=== PATIENT | male | born 1935 | race Caucasian/White ===

== ENCOUNTER 2020-03-12 09:08 | Outpatient (REF) | payer MEDICARE, SELFPAY ==
[2020-03-12 09:29] LABS: COVID-19 Test Negative (Negative)
== END 2020-03-12 09:09 | disposition home or self-care (01) ==
LOC: HO.LAB 09:08
PROVIDERS: PCP Physician Assistant; Visit Provider Internal Medicine
DX: Z20.828 Contact with and (suspected) exposure to other viral communicable diseases (principal)
CPT/HCPCS: 87635

== ENCOUNTER 2020-04-09 08:22 | Outpatient (REF) | payer MEDICARE, SELFPAY ==
[2020-04-09 08:55] LABS: MANUAL DIFF FLAG NO
[2020-04-09 08:59] LABS: Basophils Percent Auto 0.6 % (0-2); Eosinophils Percent Auto 1.2 % (0-4); Hematocrit 35.2 % (42-52); Hemoglobin 12.1 g/dl (14.0-18.0); Imm Gran Abs Auto 0.01 X10*3/uL (0.00-0.03); Imm Gran Pct Auto 0.3 % (0.0-0.4); Lymphocytes Absolute Auto 0.7 X10*3/uL (1.2-4.9); Lymphocytes Percent Auto 21.1 % (20-40); Mean Corpuscular HGB Conc 34.4 g/dl (31.0-36.0); Mean Corpuscular Hemoglobin 33.4 pg (27.0-33.0); Mean Corpuscular Volume 97.2 fL (80-98); Mean Platelet Volume 9.2 fL (9.4-12.4); Monocytes Absolute Auto 0.4 X10*3/uL (0.1-1.2); Monocytes Percent Auto 12.2 % (2-11); Neutrophils Absolute Auto 2.2 X10*3/uL (2.0-8.3); Neutrophils Percent Auto 64.6 % (45-73); Platelet Count 185 X10*3/uL (160-400); Red Blood Count 3.62 X10*6/uL (4.60-5.80); Red Cell Distribution Width 11.9 % (11.0-16.0); White Blood Count 3.4 X10*3/uL (4.8-10.8)
[2020-04-09 09:08] LABS: Estimated Average Glucose 126 mg/dL
[2020-04-09 09:37] LABS: Alanine Aminotransferase 17 U/L (0-40); Albumin Level 4.2 g/dL (3.5-5.0); Alkaline Phosphatase 97 U/L (39-117); Anion Gap 10 (12-20); Aspartate Amino Transferase 22 U/L (5-37); Bilirubin Total 0.8 mg/dL (0.0-1.0); Blood Urea Nitrogen 12 mg/dL (9-16); Carbon Dioxide 28 mmol/L (22-29); Chloride 97 mmol/L (96-108); Cholesterol 101 mg/dL; Estimated Glomerular Filt Rate > 60; Glucose Fasting 108 mg/dL (60-99); HDL Cholesterol 49 mg/dL; LDL Cholesterol Calculated 45 mg/dl; Potassium 4.4 mmol/l (3.3-5.1); Sodium 131 mmol/L (135-145); Total Protein 6.6 g/dL (6.5-8.0); Triglycerides 35 mg/dL
[2020-04-09 09:47] LABS: Uric Acid 2.8 mg/dL (3.4-7.0)
[2020-04-09 09:58] LABS: Thyroid Stimulating Hormone 0.44 uIU/mL (0.32-4.0)
== END 2020-04-09 08:23 | disposition home or self-care (01) ==
LOC: HO.LAB 08:22
PROVIDERS: Absent Provider Internal Medicine Cardiovascular Disease; PCP Physician Assistant; Visit Provider Physician Assistant
DX: E78.5 Hyperlipidemia, unspecified (principal); I10 Essential (primary) hypertension; I25.10 Atherosclerotic heart disease of native coronary artery without angina pectoris; M10.9 Gout, unspecified; N40.1 Benign prostatic hyperplasia with lower urinary tract symptoms; R73.09 Other abnormal glucose
CPT/HCPCS: 36415; 80053; 80061; 83036; 84443; 84550; 85025

== ENCOUNTER → 2020-04-17 10:48 | Outpatient (BNVA) | payer MEDICARE, SELFPAY | PROVIDERS: PCP Physician Assistant; Visit Provider Urology | DX: Z76.89 Persons encountering health services in other specified circumstances (principal) | CPT/HCPCS: 99212 ==

== ENCOUNTER 2020-10-21 08:21 | Outpatient (REF) | payer MEDICARE, SELFPAY ==
[2020-10-21 08:53] LABS: Hematocrit 35.5 % (42-52); Hemoglobin 12.4 g/dl (14.0-18.0); Mean Corpuscular HGB Conc 34.9 g/dl (31.0-36.0); Mean Corpuscular Volume 97.3 fL (80-98); Mean Platelet Volume 9.8 fL (9.4-12.4); Platelet Count 142 X10*3/uL (160-400); Red Blood Count 3.65 X10*6/uL (4.60-5.80); Red Cell Distribution Width 12.4 % (11.0-16.0); White Blood Count 3.2 X10*3/uL (4.8-10.8)
[2020-10-21 09:18] LABS: Alanine Aminotransferase 16 U/L (0-40); Albumin Level 4.3 g/dL (3.5-5.0); Alkaline Phosphatase 99 U/L (39-117); Anion Gap 10 (12-20); Aspartate Amino Transferase 23 U/L (5-37); Bilirubin Total 1.2 mg/dL (0.0-1.0); Blood Urea Nitrogen 12 mg/dL (9-16); Calcium 9.4 mg/dL (8.4-10.2); Carbon Dioxide 28 mmol/L (22-29); Chloride 98 mmol/L (96-108); Cholesterol 107 mg/dL; Estimated Glomerular Filt Rate > 60; Glucose Fasting 104 mg/dL (60-99); HDL Cholesterol 56 mg/dL; LDL Cholesterol Calculated 45 mg/dl; Potassium 4.4 mmol/L (3.3-5.1); Sodium 132 mmol/L (135-145); Total Protein 6.7 g/dL (6.5-8.0); Triglycerides 33 mg/dL
[2020-10-21 09:35] LABS: Prostate Specific Antigen Scr 1.12 ng/mL (<0.05-4.0); TSH reflex Free T4 0.53 uIU/mL (0.32-4.0)
== END 2020-10-21 08:22 | disposition home or self-care (01) ==
LOC: HO.LAB 08:21
PROVIDERS: Absent Provider Internal Medicine Cardiovascular Disease; PCP Physician Assistant; Visit Provider Physician Assistant
DX: Z12.5 Encounter for screening for malignant neoplasm of prostate (principal); I10 Essential (primary) hypertension
CPT/HCPCS: 36415; 80053; 80061; 84153; 84443; 85027

== ENCOUNTER → 2021-02-02 11:08 | Outpatient (BNV) | payer MEDICARE, SELFPAY | PROVIDERS: PCP Physician Assistant; Referring Provider Physician Assistant; Visit Provider Internal Medicine Medical Oncology | DX: D61.818 Other pancytopenia (principal) | CPT/HCPCS: 99203; 99213 ==

== ENCOUNTER → 2021-04-20 10:31 | Outpatient (BNVA) | payer MEDICARE, SELFPAY | PROVIDERS: PCP Physician Assistant; Visit Provider Urology | DX: R35.1 Nocturia (principal) | CPT/HCPCS: 51798; 99212 ==

== ENCOUNTER 2021-08-09 12:16 | Outpatient (REF) | payer MEDICARE, SELFPAY ==
--- NOTE | ~2021-08-09 | US_ITS ---
EXAMINATION: US ABDOMEN COMPLETE CLINICAL INFORMATION: Pancytopenia. COMPARISON: None TECHNIQUE: Real-time imaging of the abdominal viscera. FINDINGS: PANCREAS: Normal. ABDOMINAL AORTA: There is evidence of atherosclerotic disease. The proximal, mid, and distal segments are normal in caliber. INFERIOR VENA CAVA: Visualized portions are normal. LIVER: There is a 7 mm cyst in the left lobe. The liver is normal in size. The liver contour is normal. Parenchymal echogenicity is normal. There is no intrahepatic biliary duct dilatation seen. GALLBLADDER: Normal. The gallbladder is physiologically distended without evidence of stones, sludge, polyps, wall thickening or pericholecystic fluid. COMMON BILE DUCT: Normal in caliber measuring 0.3 cm in diameter. RIGHT KIDNEY: There is a 7.3 x 5.7 x 7.6 cm cyst exophytic to the lower pole. No hydronephrosis or renal calculi. The kidney measures 10.9 cm in maximum dimension. LEFT KIDNEY: Normal. No hydronephrosis. No renal calculi or focal parenchymal lesions. The kidney measures 12.2 cm in maximum dimension. SPLEEN: Normal. The spleen measures 8.4 cm in maximum dimension. FREE FLUID: None. US/US abdomen complete IMPRESSION: Normal-size spleen. Small liver cyst. Large right renal cyst.
== END 2021-08-09 12:17 | disposition home or self-care (01) ==
LOC: HO.US 12:16
PROVIDERS: PCP Physician Assistant; Visit Provider Internal Medicine Medical Oncology
DX: D61.818 Other pancytopenia (principal)
CPT/HCPCS: 76700

== ENCOUNTER 2021-09-25 20:48 | Observation (INO) | payer MEDICARE, SELFPAY ==
--- NOTE | ~2021-09-25 | CT_ITS ---
EXAMINATION: CT HEAD WITHOUT CONTRAST CLINICAL INFORMATION: Syncope. COMPARISON: None TECHNIQUE: Contiguous axial imaging was performed from the skull base to vertex without intravenous administration of contrast. This CT examination was performed using dose optimization techniques as appropriate, variously including the following: *Automated exposure control. *Adjustment of mA and/or kV according to patient size (this includes techniques or standardized protocols for targeted exams where dose is matched to indication/reason for exam; i.e. extremities or head). *Use of iterative reconstruction technique. DLP: 797 mGy-cm FINDINGS: There is no evidence of acute intracranial hemorrhage or territorial infarction. No abnormal mass effect or midline shift is seen. [id number]-[id number] matter differentiation is well preserved. No extra-axial fluid collections are identified. The ventricles and sulci are are mildly prominent, consistent with diffuse atrophy. There is no abnormal attenuation within the brain parenchyma. The osseous structures and soft tissues are normal. The mastoid air cells and visualized portions of the paranasal sinuses are well aerated. CT/CT head/brain wo con IMPRESSION: 1. No acute intracranial hemorrhage or mass effect. 2. Mild diffuse atrophy.
--- NOTE | ~2021-09-25 | XR_ITS ---
EXAMINATION: PORTABLE CHEST 1 VIEW CLINICAL INFORMATION: syncope . COMPARISON: No recent pertinent prior studies are available for comparison. TECHNIQUE: Portable frontal view of the chest was obtained. FINDINGS: The lungs are mildly hyperinflated. No focal infiltrate, effusion, edema, or pneumothorax. Cardiac and mediastinal silhouettes are within normal limits for technique. No acute bony abnormality seen. XR/XR chest 1V IMPRESSION: Mildly hyperinflated but otherwise no evidence of acute disease.
--- NOTE | ~2021-09-25 | MR_ITS ---
MRI OF THE BRAIN WITHOUT IV CONTRAST INDICATION: Syncope. COMPARISON: CT head 09/25/2021 and CTA head and neck 09/27/2021. TECHNIQUE: Multiplanar multisequence MR imaging of the brain was obtained without IV contrast. FINDINGS: There is no hydrocephalus, extra-axial surface collection, or herniation. There are T2 signal changes throughout the supratentorial white matter and central [place], likely mild to moderate chronic microangiopathy. 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 The major flow voids at the skull base are preserved. There is no acute infarct on diffusion-weighted imaging. There is no intracranial hemorrhage on the gradient recalled echo acquisition. Punctate focus of chronic hemosiderin staining within the left centrum semiovale. The midline structures are normal. The cerebellar tonsils are normally positioned. The cerebellum and brainstem are normal. The craniocervical junction is normal. Osseous marrow signal intensity is homogenous. The visualized soft tissues are unremarkable. MR/MR head/brain wo con IMPRESSION: - No acute intracranial findings. No acute infarcts. 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
--- NOTE | ~2021-09-25 | CT_ITS ---
EXAMINATION: CT angio head neck CLINICAL INFORMATION: Syncope. COMPARISON: Brain MRI 09/27/2021. TECHNIQUE: Collections Agent images were obtained. A CT angiogram of the head and neck was performed in the arterial phase after the intravenous administration of 70 mL Omnipaque 350. Pre and delayed postcontrast images of the head were also obtained. MIP reconstructions were generated in multiple orientations at the acquisition workstation. Multiple three-dimensional surface rendered images and maximum intensity projection images were generated on a dedicated 3-D lab workstation. Arterial stenoses are measured in accordance with NASCET criteria or similar method if applicable. This CT examination was performed using dose optimization techniques as appropriate, including one or more of the following: Automated exposure control, iterative reconstruction, and adjustment of technique factors (mA and/or kVp) according to patient size (this includes techniques or standardized protocols for targeted exams where dose is matched to indication/reason for exam). Total exam dose-length product 2788 mGy-cm FINDINGS: Head: There is no acute intracranial hemorrhage or abnormal extra-axial collection. Postcontrast images reveal no abnormal intracranial mass or enhancement. There is no intracranial mass effect or midline shift. Lateral and third ventricles are normal. No hydrocephalus. There are scattered nonspecific foci of hypoattenuation within the periventricular white matter that most likely represent a chronic manifestation of small vessel ischemia. [place]-white matter differentiation is otherwise preserved and there is no evidence of acute territorial infarct. CT angiogram neck: A few scattered atheromatous calcifications involve the aortic arch apex. Origins of the major aortic branches are widely patent. Common carotid arteries are patent. There is partially calcified atheromatous plaque involving both carotid bifurcations. No stenosis of the extracranial internal carotid arteries. Cervical segments of the vertebral arteries as well as their origins are patent. CT angiogram head: Intracranial internal carotid arteries are patent. The intradural vertebral artery segments and basilar artery are patent. Anterior, middle, and posterior cerebral artery complexes are normal. No intracranial large vessel occlusion. Other: Soft tissues of the neck including the thyroid gland are normal. Grossly no pathologically enlarged cervical lymph nodes. Visualized lung apices are clear. There is no acute osseous finding. Specifically no worrisome lytic or blastic osseous lesion. Grossly no evidence of canal compromise. CT/CT angio head neck IMPRESSION: Unremarkable examination in that there is no stenosis of the cervical carotid or vertebral arteries. No intracranial large vessel occlusion. Grossly no evidence of acute territorial infarct or hemorrhage. No intracranial mass or hydrocephalus.
--- NOTE | 2021-09-25 20:53 | ECG_ITS ---
Test Reason : SYNCOPE Blood Pressure : / mmHG Vent. Rate : 066 BPM Atrial Rate : 066 BPM P-R Int : 178 ms QRS Dur : 100 ms QT Int : 398 ms P-R-T Axes : 085 -08 -05 degrees QTc Int : 417 ms Normal sinus rhythm Normal ECG When compared with ECG of 29-SEP-2010 09:07, Premature ventricular complexes are no longer Present Criteria for Inferior infarct are no longer Present Referred By: Generic ED Physician Electronically Signed By:VIVIANA PARNELL
[2021-09-25 21:05] VITALS: PULSE 70; RESP 17; TEMP 36.5; O2SAT 98; BMI 25.3
[2021-09-25 21:08] LABS: MANUAL DIFF FLAG NO
[2021-09-25 21:09] LABS: Basophils Percent Auto 0.6 % (0-2); Eosinophils Absolute Auto 0.1 X10*3/uL (0.0-0.4); Eosinophils Percent Auto 1.9 % (0-4); Hematocrit 37.1 % (42.0-52.0); Hemoglobin 12.8 g/dl (14.0-18.0); Imm Gran Abs Auto 0.02 X10*3/uL (0.00-0.03); Imm Gran Pct Auto 0.3 % (0.0-0.4); Lymphocytes Absolute Auto 1.3 X10*3/uL (1.2-4.9); Lymphocytes Percent Auto 19.2 % (20-40); Mean Corpuscular HGB Conc 34.5 g/dl (31.0-36.0); Mean Corpuscular Hemoglobin 33.4 pg (27.0-33.0); Mean Corpuscular Volume 96.9 fL (80.0-98.0); Mean Platelet Volume 9.6 fL (9.4-12.4); Monocytes Absolute Auto 0.8 X10*3/uL (0.1-1.2); Monocytes Percent Auto 11.4 % (2-11); Neutrophils Absolute Auto 4.6 x10*3/uL (2.0-8.3); Neutrophils Percent Auto 66.6 % (45-73); Platelet Count 152 X10*3/uL (160-400); Red Blood Count 3.83 X10*6/uL (4.60-5.80); Red Cell Distribution Width 12.7 % (11.0-16.0); White Blood Count 6.8 X10*3/uL (4.8-10.8)
[2021-09-25 21:11] VITALS: O2SAT 98
[2021-09-25 21:22] LABS: Anion Gap 16 (12-20); Blood Urea Nitrogen 20 mg/dL (9-16); Calcium 9.8 mg/dL (8.4-10.2); Carbon Dioxide 23 mmol/L (22-29); Chloride 96 mmol/L (96-108); Creatinine Clr Calc Pharmacy 59.7; Estimated Glomerular Filt Rate > 60; Glucose Random 93 mg/dL (60-115); Potassium 4.1 mmol/L (3.3-5.1); Sodium 131 mmol/L (135-145)
[2021-09-25 21:28] LABS: Troponin-I High Sensitivity 4.2 ng/L (<3.5-35.0)
[2021-09-25 21:33] VITALS: BP 167/65; PULSE 68
[2021-09-25 21:35] VITALS: BP 170/71; PULSE 70
[2021-09-25 21:36] VITALS: BP 169/66; PULSE 80
[2021-09-25 21:42] VITALS: BP 170/71; PULSE 72; RESP 16; TEMP 36.8; O2SAT 96
[2021-09-25 21:51] LABS: Appearance Urine CLEAR; Color Urine YELLOW; Glucose Urine UA NEG (NEG); Leukocyte Esterase Urine NEG (NEG); Nitrite Urine NEG (NEG); PH 6.5 (5.0-8.0); Urine Blood NEG (NEG); Urine Ketones NEG (NEG); Urine Protein NEG (NEG-TRACE)
--- NOTE | 2021-09-25 21:54 | ED_ITS ---
HPI - Syncope General Chief Complaint: Syncope Stated Complaint: syncopal epiosode Time Seen by Provider: 09/25/21 21:13 Source: patient and family () Mode of arrival: EMS History of Present Illness HPI narrative: 86-year-old male with history of CAD, hypertension, BPH and mild anemia who is brought in by EMS after out having dinner with his family, at which time he had proximally 1 glass of wine and states ?I suddenly woke up and I was on the ground?. The provides additional information stating that he was sitting at the table and then simply slumped over to the left but was caught and lowered to the ground. There was an episode of vomiting upon awakening, the is unsure of the duration of patient being passed out, paramedics that were also at the restaurant attended to the patient and patient denies any recent changes in health and states he was restarted on a daily aspirin but otherwise denies any recent medication changes or new medications. Related Data Home Medications Medication Instructions Recorded Confirmed hydrochlorothiazide 12.5 mg tablet 12.5 mg PO DAILY 05/27/20 08/10/21 Previous Rx's Medication Instructions Recorded lisinopril 40 mg tablet 40 mg PO DAILY #90 tab 03/01/21 atorvastatin 40 mg tablet 40 mg PO DAILY #90 tab 06/28/21 tamsulosin 0.4 mg capsule 0.4 mg PO BEDTIME 90 Days #90 cap 07/12/21 allopurinol 300 mg tablet 300 mg PO DAILY #90 tab 08/17/21 metoprolol succinate 25 mg 25 mg PO DAILY #90 tab 08/17/21 tablet,extended release 24 hr Allergies Allergy/AdvReac Type Severity Reaction Status Date / Time hydrochlorothiazide Allergy Unknown Unknown Verified 09/25/21 21:12 [From Dyazide] triamterene [From Dyazide] Allergy Unknown Unknown Verified 09/25/21 21:12 Review of Systems Review of Systems: Pertinent positives and negatives as stated in HPI 10 point review of systems is otherwise negative. [facility] Past Medical History Source: nursing notes reviewed Medical History Polio Surgical History No pertinent past surgical history Family History Family History Father Lung cancer Mother No problems noted. Son In good health Social History Social History Housing: House Alcohol intake: current Alcohol intake frequency: a few times a week Alcohol type: wine Patient Tobacco Use Status: Former Tobacco user Smoked in Last 30 Days: No Second Hand Smoke Exposure: No Use of substances other than those prescribed or required for medical reasons: No Any prior treatment program specific to substance use: No Advance Directives: No Advance Directives Information Provided: Yes Current occupational status: retired Physical Exam Vital Signs: Vital Signs: Last Vital Signs Temp 98.2 F 09/25/21 21:42 Pulse 72 09/25/21 21:42 Resp 16 09/25/21 21:42 BP 170/71 H 09/25/21 21:42 Pulse Ox 96 09/25/21 21:42 BMI result Body Mass Index 25.3 VITAL SIGNS: Reviewed. GENERAL: Well developed, well nourished, in no acute distress. HEAD: Normocephalic/atraumatic EYES: PERRLA, EOMI intact without pain, no nystagmus EARS: Ext canals without abnormality OROPHARYNX: no oral lesions noted, posterior pharynx clear and non-erythematous LUNGS: Normal breath sounds. No adventitious sounds or accessory muscle use. SpO2<96> CARDIOVASCULAR: Regular rate and rhythm without noted murmurs, no JVD or lower extremity edema. ABDOMEN: Soft, non-tender, non-distended with bowel sounds. MUSCULOSKELETAL: No tenderness, deformities, or effusions noted on gross inspection. EXTREMITIES: No cyanosis, clubbing or edema. SKIN: Inspection of the skin reveals no rashes, NEUROLOGIC: Alert and oriented x 4. Strength and sensation to light touch were grossly intact x 4, no facial asymmetry, no pronator drift, cranial nerves 2-12 are grossly intact, cerebellar testing is without findings. Orthostatics are negative Course Course Course Narrative: 86-year-old male with history and clinical presentation consistent with syncopal episode of unclear etiology. On review of all investigations there does not appear to be evidence to suggest intracranial abnormality, infection, anemia, arrhythmia at the time of evaluation here in the emergency room. Orthostatics are negative but given the fact that patient had a witnessed syncopal episode while sitting this patient should be evaluated further and the case was discussed with the inpatient hospitalist who accepts admission. Patient was informed of all results, findings, and plans. MDM - Syncope Lab Data Result diagrams: 09/25/21 21:03 09/25/21 21:03 Labs: Lab Results 09/25/21 09/25/21 09/25/21 Range/Units 21:02 21:03 21:03 WBC 6.8 (4.8-10.8) X10*3/uL RBC 3.83 L (4.60-5.80) X10*6/uL Hgb 12.8 L (14.0-18.0) g/dl Hct 37.1 L (42.0-52.0) % MCV 96.9 (80.0-98.0) fL MCH 33.4 H (27.0-33.0) pg MCHC 34.5 (31.0-36.0) g/dl RDW 12.7 (11.0-16.0) % Plt Count 152 L (160-400) X10*3/uL MPV 9.6 (9.4-12.4) fL Immature Gran % (Auto) 0.3 (0.0-0.4) % Neut % (Auto) 66.6 (45-73) % Lymph % (Auto) 19.2 L (20-40) % [place] % (Auto) 11.4 H (2-11) % Eos % (Auto) 1.9 (0-4) % Baso % (Auto) 0.6 (0-2) % Lymph # (Auto) 1.3 (1.2-4.9) X10*3/uL [place] # (Auto) 0.8 (0.1-1.2) X10*3/uL Eos # (Auto) 0.1 (0.0-0.4) X10*3/uL Baso # (Auto) 0.0 (0.0-0.2) X10*3/uL Abs Immat Gran (auto) 0.02 (0.00-0.03) X10*3/uL Absolute Neuts (auto) 4.6 (2.0-8.3) x10*3/uL Absolute Nucleated RBC 0.000 (0.0-0.012) X10*3/uL Nucleated RBC % (auto) 0.0 (0.0-0.2) /100WBC Sodium 131 L (135-145) mmol/L Potassium 4.1 (3.3-5.1) mmol/L Chloride 96 (96-108) mmol/L Carbon Dioxide 23 (22-29) mmol/L Anion Gap 16 (12-20) BUN 20 H (9-16) mg/dL Creatinine 0.86 (0.5-1.4) mg/dL Estim Creat Clear Calc 59.7 Estimated GFR > 60 Random Glucose 93 (60-115) mg/dL Calcium 9.8 (8.4-10.2) mg/dL Troponin I High Sens 4.2 (<3.5-35.0) ng/L Urine Color Urine Appearance Urine pH (5.0-8.0) Ur Specific [place] (1.005-1.025) Urine Protein (NEG-TRACE) MG/DL Urine Glucose (UA) (NEG) MG/DL Urine Ketones (NEG) MG/DL Urine Blood (NEG) Urine Nitrite (NEG) Ur Leukocyte Esterase (NEG) COVID-19 ([facility]) (Negative) COVID-19 Clin Com 09/25/21 09/25/21 Range/Units 21:42 22:07 WBC (4.8-10.8) X10*3/uL RBC (4.60-5.80) X10*6/uL Hgb (14.0-18.0) g/dl Hct (42.0-52.0) % MCV (80.0-98.0) fL MCH (27.0-33.0) pg MCHC (31.0-36.0) g/dl RDW (11.0-16.0) % Plt Count (160-400) X10*3/uL MPV (9.4-12.4) fL Immature Gran % (Auto) (0.0-0.4) % Neut % (Auto) (45-73) % Lymph % (Auto) (20-40) % [place] % (Auto) (2-11) % Eos % (Auto) (0-4) % Baso % (Auto) (0-2) % Lymph # (Auto) (1.2-4.9) X10*3/uL [place] # (Auto) (0.1-1.2) X10*3/uL Eos # (Auto) (0.0-0.4) X10*3/uL Baso # (Auto) (0.0-0.2) X10*3/uL Abs Immat Gran (auto) (0.00-0.03) X10*3/uL Absolute Neuts (auto) (2.0-8.3) x10*3/uL Absolute Nucleated RBC (0.0-0.012) X10*3/uL Nucleated RBC % (auto) (0.0-0.2) /100WBC Sodium (135-145) mmol/L Potassium (3.3-5.1) mmol/L Chloride (96-108) mmol/L Carbon Dioxide (22-29) mmol/L Anion Gap (12-20) BUN (9-16) mg/dL Creatinine (0.5-1.4) mg/dL Estim Creat Clear Calc Estimated GFR Random Glucose (60-115) mg/dL Calcium (8.4-10.2) mg/dL Troponin I High Sens (<3.5-35.0) ng/L Urine Color YELLOW Urine Appearance CLEAR Urine pH 6.5 (5.0-8.0) Ur Specific [place] 1.010 (1.005-1.025) Urine Protein NEG (NEG-TRACE) MG/DL Urine Glucose (UA) NEG (NEG) MG/DL Urine Ketones NEG (NEG) MG/DL Urine Blood NEG (NEG) Urine Nitrite NEG (NEG) Ur Leukocyte Esterase NEG (NEG) COVID-19 ([facility]) Negative (Negative) COVID-19 Clin Com See Note ECG Data Attestation: I personally reviewed and interpreted this ECG as follows: Prior ECG tracings: available for review Interpretation: Sinus rhythm, HR-66, no STEMI, MO/QRS/QTC are within normal limits. Discharge Plan Discharge Clinical Impression: Syncope, HTN (hypertension), BPH w urinary obs/LUTS, Anemia, CAD (coronary artery disease) Patient Disposition: Admitted As Inpatient Prescriptions: No Action lisinopril 40 mg tablet 40 mg PO DAILY Qty: 90 2RF atorvastatin 40 mg tablet 40 mg PO DAILY Qty: 90 2RF tamsulosin 0.4 mg capsule 0.4 mg PO BEDTIME 90 Days Qty: 90 2RF metoprolol succinate 25 mg tablet extended release 24 hr 25 mg PO DAILY Qty: 90 0RF allopurinol 300 mg tablet 300 mg PO DAILY Qty: 90 0RF hydrochlorothiazide 12.5 mg tablet 12.5 mg PO DAILY 0RF
[2021-09-25 22:37] LABS: COVID-19 Test Negative (Negative); IDNOW Serial# 16C4AD1C
--- NOTE | 2021-09-25 23:02 | P.HPHOSP_ITS ---
History of Present Illness Date of Service: 09/25/21 Chief Complaint: syncope 86-year-old male with a past medical history of hypertension, hyperlipidemia, BPH, gout presented to the hospital with a chief complaint of syncope. Patient reported that he was having dinner; suddenly he felt lightheaded followed by fainted; he was slowly landed onto the ground with the help of the Members next to him in the rested. Mentioned that he briefly lost consciousness; denied any seizure-like activity. Denied any postictal confusion. Patient reported that after he wake up he had an episode of vomiting. Subsequently EMS was called in and sent him to the hospital for further evaluation. At the time of atrial patient denies any chest pain palpitations lightheadedness or dizziness. Denies any numbness tingling or focal weakness. Denies any GI symptoms. Mentions that he had like lightheadedness dizziness in the past but never had syncope. Reports he has been keeping up with fluids. Also mentions that he has been complaint with his home medications. Review of all other systems is negative except mentioned above ER course: Per ER team patient's exam was nonfocal; EKG showed no evidence of ischemia; admitted to the hospital for further management PMFSH Medical History Polio Family History Father Lung cancer Mother No problems noted. Son In good health Surgical History No pertinent past surgical history Social History Housing: House Alcohol intake: current Alcohol intake frequency: a few times a week Alcohol type: wine Patient Tobacco Use Status: Former Tobacco user Smoked in Last 30 Days: No Second Hand Smoke Exposure: No Use of substances other than those prescribed or required for medical reasons: No Any prior treatment program specific to substance use: No Advance Directives: No Advance Directives Information Provided: Yes Current occupational status: retired Meds Allergies Allergy/AdvReac Type Severity Reaction Status Date / Time hydrochlorothiazide Allergy Unknown Unknown Verified 09/25/21 21:12 [From Dyazide] triamterene [From Dyazide] Allergy Unknown Unknown Verified 09/25/21 21:12 Home Medications Medication Instructions Recorded Confirmed Last Taken Type hydrochlorothiazide 12.5 mg tablet 12.5 mg PO DAILY 05/27/20 08/10/21 Unknown History Physical Exam Vital Signs and Narrative: Vital Signs: Last Vital Signs Temp 98.2 F 09/25/21 21:42 Pulse 72 09/25/21 21:42 Resp 16 09/25/21 21:42 BP 170/71 H 09/25/21 21:42 Pulse Ox 96 09/25/21 21:42 BMI result Body Mass Index 25.3 Gen: Appears be in no acute distress HEENT: NCAT, Moist mucosa. Pulmonary: Vesicular breath sounds, fair air entry CVS: Normal S1-S2 Abdomen: BS+, Soft, Nontender Extremities: Warm well perfused Neuro: Alert and awake. grossly nonfocal. Results Labs CBC and Chem 7: 09/25/21 21:03 09/25/21 21:03 Labs: Laboratory Results - last 24 hr 09/25/21 09/25/21 09/25/21 21:02 21:03 21:03 MCV 96.9 MCH 33.4 H MCHC 34.5 RDW 12.7 Plt Count 152 L MPV 9.6 Immature Gran % (Auto) 0.3 Neut % (Auto) 66.6 Lymph % (Auto) 19.2 L [place] % (Auto) 11.4 H Eos % (Auto) 1.9 Baso % (Auto) 0.6 Lymph # (Auto) 1.3 [place] # (Auto) 0.8 Eos # (Auto) 0.1 Baso # (Auto) 0.0 Abs Immat Gran (auto) 0.02 Absolute Neuts (auto) 4.6 Absolute Nucleated RBC 0.000 Nucleated RBC % (auto) 0.0 Anion Gap 16 Estim Creat Clear Calc 59.7 Estimated GFR > 60 Random Glucose 93 Calcium 9.8 Troponin I High Sens 4.2 Urine Color Urine Appearance Urine pH Ur Specific [place] Urine Protein Urine Glucose (UA) Urine Ketones Urine Blood Urine Nitrite Ur Leukocyte Esterase COVID-19 ([facility]) COVID-19 Clin Com 09/25/21 09/25/21 21:42 22:07 MCV MCH MCHC RDW Plt Count MPV Immature Gran % (Auto) Neut % (Auto) Lymph % (Auto) [place] % (Auto) Eos % (Auto) Baso % (Auto) Lymph # (Auto) [place] # (Auto) Eos # (Auto) Baso # (Auto) Abs Immat Gran (auto) Absolute Neuts (auto) Absolute Nucleated RBC Nucleated RBC % (auto) Anion Gap Estim Creat Clear Calc Estimated GFR Random Glucose Calcium Troponin I High Sens Urine Color YELLOW Urine Appearance CLEAR Urine pH 6.5 Ur Specific [place] 1.010 Urine Protein NEG Urine Glucose (UA) NEG Urine Ketones NEG Urine Blood NEG Urine Nitrite NEG Ur Leukocyte Esterase NEG COVID-19 ([facility]) Negative COVID-19 Clin Com See Note Imaging Radiologist's Impressions: Impressions Chest X-Ray 09/25/21 21:10 IMPRESSION: Mildly hyperinflated but otherwise no evidence of acute disease. Head CT 09/25/21 22:27 IMPRESSION: 1. No acute intracranial hemorrhage or mass effect. 2. Mild diffuse atrophy. Assessment and Plan (1) Syncope: Status: Acute Plan 86-year-old male with a past medical history of hypertension, hyperlipidemia, BPH, gout presented to the hospital with a chief complaint of syncope. Syncope: Exam nonfocal; CT head showed no acute findings; EKG nonischemic troponin 4.2-6.3 Monitor on telemetry Echocardiogram fall precautions; PT/ OT eventually orthostatic vitals history of hypertension: Hold home hydrochlorothiazide. Continue home lisinopril, metoprolol. History of hyperlipidemia: Continue home statin History of BPH: Continue home Flomax DVT prophylaxis: Subcu heparin Code status: Full code Quality Stroke Does the patient have a stroke diagnosis?: No VTE Prior VTE?: No VTE Risk Level:: Medical - moderate - high VTE Device Contraindication: Treatment Not Indicated VTE Drug Contraindication: N/A - Med Ordered
[2021-09-26] VITALS (8 sets, daily range): BP systolic 138–170; BP diastolic 53–87; PULSE 57–68; RESP 12–18; TEMP 36.7–37.3; O2SAT 96–98; BMI 24.0
[2021-09-26 00:05] LABS: Troponin-I High Sensitivity 6.3 ng/L (<3.5-35.0)
[2021-09-26] MEDS: Heparin Sodium,Porcine 5,000 UNIT/ML VIAL 5000 UNIT SUBCUT (04:33)
[2021-09-26 06:39] LABS: MANUAL DIFF FLAG NO
[2021-09-26 06:49] LABS: Basophils Percent Auto 0.3 % (0-2); Eosinophils Percent Auto 0.5 % (0-4); Hemoglobin 12.2 g/dl (14.0-18.0); Imm Gran Abs Auto 0.02 X10*3/uL (0.00-0.03); Imm Gran Pct Auto 0.3 % (0.0-0.4); Lymphocytes Absolute Auto 0.7 X10*3/uL (1.2-4.9); Lymphocytes Percent Auto 10.5 % (20-40); Mean Corpuscular HGB Conc 34.9 g/dl (31.0-36.0); Mean Corpuscular Hemoglobin 33.3 pg (27.0-33.0); Mean Corpuscular Volume 95.6 fL (80.0-98.0); Mean Platelet Volume 9.8 fL (9.4-12.4); Monocytes Absolute Auto 0.7 X10*3/uL (0.1-1.2); Monocytes Percent Auto 9.9 % (2-11); Neutrophils Absolute Auto 5.1 x10*3/uL (2.0-8.3); Neutrophils Percent Auto 78.5 % (45-73); Platelet Count 143 X10*3/uL (160-400); Red Blood Count 3.66 X10*6/uL (4.60-5.80); Red Cell Distribution Width 12.5 % (11.0-16.0); White Blood Count 6.6 X10*3/uL (4.8-10.8)
[2021-09-26 07:09] LABS: Anion Gap 14 (12-20); Blood Urea Nitrogen 16 mg/dL (9-16); Calcium 9.3 mg/dL (8.4-10.2); Carbon Dioxide 22 mmol/L (22-29); Chloride 100 mmol/L (96-108); Creatinine Clr Calc Pharmacy 69.4; Estimated Glomerular Filt Rate > 60; Glucose Random 105 mg/dL (60-115); Potassium 4.5 mmol/L (3.3-5.1); Sodium 131 mmol/L (135-145)
[2021-09-26] MEDS: lisinopriL 40 MG TABLET PO (08:28)
[2021-09-26] MEDS: Metoprolol Succinate ER 25 MG TAB.ER.24H PO (08:28)
--- NOTE | 2021-09-26 08:34 | PHA.MEDREC ---
MED REC COMPLETE, NO ISSUES Pharmacy Consult ? Medication Reconciliation Pharmacy has completed the medication reconciliation.
--- NOTE | 2021-09-26 10:41 | P.PNIM_ITS ---
Subjective Subjective Date of Service: 09/26/21 Review of Systems Follow up syncope No chest pain or sob feeling well this morning Physical Exam Vital Signs: Vital Signs: Last Vital Signs Temp 98.2 F 09/26/21 08:27 Pulse 68 09/26/21 08:27 Resp 12 09/26/21 08:27 BP 152/53 H 09/26/21 08:27 Pulse Ox 96 09/26/21 08:27 BMI result Body Mass Index 25.3 Appearing in no acute distress lung sounds are clear to auscultation heart regular rate rhythm, clear S1, S2 positive bowel sounds, abdomen is soft, nontender neuro patient is alert x3, no focal deficits Objective Data Active Medications Acetaminophen (Acetaminophen 325 Mg Tablet) 650 mg PO Q6H PRN PRN Reason: Pain, Mild (Pain Scale 1-3) Atorvastatin Calcium (Atorvastatin Calcium 40 Mg Tablet) 40 mg PO BEDTIME [facility] Heparin Sodium (Porcine) (Heparin Sodium,Porcine 5,000 Unit/Ml Vial) 5,000 unit SUBCUT Q8H [facility] Last Admin: 09/26/21 04:33 Dose: 5,000 unit Documented by: JOSIANE Hydromorphone HCl (Hydromorphone Hcl 1 Mg/Ml Syringe) 0.5 mg IVPUSH Q4H PRN; Protocol PRN Reason: Pain, Severe (Pain Scale 7-10) Lisinopril (Lisinopril 40 Mg Tablet) 40 mg PO DAILY [facility]; Protocol Last Admin: 09/26/21 08:28 Dose: 40 mg Documented by: MYRTLE Melatonin (Melatonin 3 Mg Tablet) 6 mg PO BEDTIME PRN PRN Reason: Insomnia Metoprolol Succinate (Metoprolol Succinate Er 25 Mg Tab.Er.24h) 25 mg PO DAILY [facility]; Protocol Last Admin: 09/26/21 08:28 Dose: 25 mg Documented by: MYRTLE Senna (Sennosides 8.6 Mg Tablet) 17.2 mg PO BEDTIME PRN PRN Reason: Constipation Sodium Chloride (0.9 % Sodium Chloride Flush 3 Ml Syringe) 3 ml IVFLUSH QSHIFT [facility] Last Admin: 09/26/21 08:46 Dose: Not Given Documented by: MYRTLE Non-Admin Reason: Previously Administered Tamsulosin HCl (Tamsulosin Hcl 0.4 Mg Capsule) 0.4 mg PO BEDTIME [facility] Labs CBC & Chem 7: 09/26/21 06:24 09/26/21 06:24 Labs: Laboratory Results - last 24 hr 09/25/21 09/25/21 09/25/21 21:02 21:03 21:03 MCV 96.9 MCH 33.4 H MCHC 34.5 RDW 12.7 Plt Count 152 L MPV 9.6 Immature Gran % (Auto) 0.3 Neut % (Auto) 66.6 Lymph % (Auto) 19.2 L [place] % (Auto) 11.4 H Eos % (Auto) 1.9 Baso % (Auto) 0.6 Lymph # (Auto) 1.3 [place] # (Auto) 0.8 Eos # (Auto) 0.1 Baso # (Auto) 0.0 Abs Immat Gran (auto) 0.02 Absolute Neuts (auto) 4.6 Absolute Nucleated RBC 0.000 Nucleated RBC % (auto) 0.0 Anion Gap 16 Estim Creat Clear Calc 59.7 Estimated GFR > 60 Random Glucose 93 Calcium 9.8 Troponin I High Sens 4.2 Urine Color Urine Appearance Urine pH Ur Specific [place] Urine Protein Urine Glucose (UA) Urine Ketones Urine Blood Urine Nitrite Ur Leukocyte Esterase COVID-19 ([facility]) COVID-[employer] Com 09/25/21 09/25/21 09/25/21 21:42 22:07 23:26 MCV MCH MCHC RDW Plt Count MPV Immature Gran % (Auto) Neut % (Auto) Lymph % (Auto) [place] % (Auto) Eos % (Auto) Baso % (Auto) Lymph # (Auto) [place] # (Auto) Eos # (Auto) Baso # (Auto) Abs Immat Gran (auto) Absolute Neuts (auto) Absolute Nucleated RBC Nucleated RBC % (auto) Anion Gap Estim Creat Clear Calc Estimated GFR Random Glucose Calcium Troponin I High Sens 6.3 Urine Color YELLOW Urine Appearance CLEAR Urine pH 6.5 Ur Specific [place] 1.010 Urine Protein NEG Urine Glucose (UA) NEG Urine Ketones NEG Urine Blood NEG Urine Nitrite NEG Ur Leukocyte Esterase NEG COVID-19 ([facility]) Negative COVID-[facility] Com See Note 09/26/21 09/26/21 06:24 06:24 MCV 95.6 MCH 33.3 H MCHC 34.9 RDW 12.5 Plt Count 143 L MPV 9.8 Immature Gran % (Auto) 0.3 Neut % (Auto) 78.5 H Lymph % (Auto) 10.5 L [place] % (Auto) 9.9 Eos % (Auto) 0.5 Baso % (Auto) 0.3 Lymph # (Auto) 0.7 L [place] # (Auto) 0.7 Eos # (Auto) 0.0 Baso # (Auto) 0.0 Abs Immat Gran (auto) 0.02 Absolute Neuts (auto) 5.1 Absolute Nucleated RBC 0.000 Nucleated RBC % (auto) 0.0 Anion Gap 14 Estim Creat Clear Calc 69.4 Estimated GFR > 60 Random Glucose 105 Calcium 9.3 Troponin I High Sens Urine Color Urine Appearance Urine pH Ur Specific [place] Urine Protein Urine Glucose (UA) Urine Ketones Urine Blood Urine Nitrite Ur Leukocyte Esterase COVID-19 ([facility]) COVID-19 Clin Com Assessment and Plan (1) Syncope: Status: Acute Plan 86-year-old man with history of hypertension, hyperlipidemia, BPH and gout pl aced on observation for an episode of syncope while out to dinner Syncope. No history of this in the past Head CT negative for any acute abnormality EKG nonischemic, negative troponin Continue to monitor on telemetry Echocardiogram Cardiology consultation Physical therapy evaluation Check orthostatic blood pressures Hypertension Continue home medications, stable blood pressure Hyperlipidemia Statin BPH Continue Flomax DVT prophylaxis with heparin Full code Attending Dr. Goncalves Quality Stroke Does the patient have a stroke diagnosis?: No VTE Prior VTE?: No VTE Risk Level:: Medical - moderate - high VTE Device Contraindication: Treatment Not Indicated VTE Drug Contraindication: N/A - Med Ordered
--- NOTE | 2021-09-26 11:11 | PC.NURSE ---
Addendum entered by Elizabeth Fisher 09/26/21 19:21: report given to IDANIA Molina Addendum entered by Elizabeth Fisher 09/26/21 11:34: pt is alert and oriented. resting in bed. no signs of acute distress notice. breathing equally unlabored. denies any chest pain or sob. pt is on continuos cardiac monitoring Original Note: report received from IDANIA Espinosa
[2021-09-26] MEDS: 0.9 % Sodium Chloride Flush 3 ML SYRINGE IVFLUSH (21:33)
[2021-09-26] MEDS: Tamsulosin HCL 0.4 MG CAPSULE PO (21:33)
[2021-09-26] MEDS: Atorvastatin Calcium 40 MG TABLET PO (21:33)
[2021-09-27 03:26] VITALS: BP 173/75; PULSE 56; RESP 16; TEMP 36.7; O2SAT 96
[2021-09-27] MEDS: Heparin Sodium,Porcine 5,000 UNIT/ML VIAL 5000 UNIT SUBCUT ×2 (03:30→11:32)
[2021-09-27] MEDS: lisinopriL 40 MG TABLET PO (07:30)
[2021-09-27] MEDS: Metoprolol Succinate ER 25 MG TAB.ER.24H PO (07:30)
[2021-09-27] MEDS: 0.9 % Sodium Chloride Flush 3 ML SYRINGE IVFLUSH (07:31)
[2021-09-27 08:00] VITALS: BP 143/52; PULSE 67; RESP 18; TEMP 36.3; O2SAT 97
--- NOTE | 2021-09-27 09:00 | CA_ITS ---
Transthoracic Echocardiogram Patient (Last, First, Middle): Santiago Duncan, Gender: Male Date of : 1935 Age: 86 Procedure Date: 09/27/2021 Procedure Type: Transthoracic Echocardiogram Location: S3E Height: 170.18 cm Weight: 68.04 kg BSA: 1.79 m2 Heart Rate: bpm BP: 132 / 60 mmHg [employer] Supervisor: VH/OT Referring MD: Stu Garsia MD Symptoms: syncope Study Quality: Fair ECG Rhythm: Sinus Conclusions: - Normal left ventricular cavity size. There is normal left ventricular wall thickness. The left ventricular systolic function is low normal. The visually estimated ejection fraction is between 50-55%. - The basal inferior segment is akinetic. - Mildly increased right ventricular cavity size. There is normal right ventricular systolic function. - The left atrium is severely dilated. The right atrium is moderately dilated. Findings Left Ventricle Normal left ventricular cavity size. There is normal left ventricular wall thickness. The left ventricular systolic function is low normal. The visually estimated ejection fraction is between 50-55%. Abnormal diastolic function is noted. Spectral Doppler is indicative of an impaired relaxation filling pattern. E/E prime ratio is between 8 and 15 consistent with indeterminate filling pressures. Wall Motion Rest Echo Findings The basal inferior segment is akinetic. Right Ventricle Mildly increased right ventricular cavity size. There is normal right ventricular systolic function. Atria The left atrium is severely dilated. The right atrium is moderately dilated. Aortic Valve There is a normal trileaflet aortic valve. There is no aortic valve stenosis. There is mild aortic valve regurgitation. Mitral Valve The mitral valve appears normal. There is trace mitral valve regurgitation. There is no mitral valve stenosis. Pulmonic Valve Normal pulmonic valve structure and function. There is trace pulmonic valve regurgitation. Tricuspid Valve Normal tricuspid valve structure and function. There is mild tricuspid valve regurgitation. Normal right atrial pressure. There is no evidence of pulmonary hypertension. Great Vessels All visible segments of the aorta are normal in size. The visualized portions of the pulmonary artery and branches are normal. Venous The inferior vena cava is normal in size and collapses greater than 50% with inspiration. Pericardium/Pleural There is no evidence of pericardial effusion. Measurements 2D Linear Measurements IVSd: 0.95 0.6-0.9/0.6-1.0 cm LVIDd: 5.49 3.9-5.3/4.2-5.9 cm LVIDd Index: 3.07 2.4-3.2/2.2-3.1 cm/m2 LVIDs: 4.07 2.0-3.6 cm LVPWd: 0.98 0.7-1.1 cm LA Diam: 4.30 2.7-3.8/3.0-4.0 cm LAIDs Index: 2.40 1.5-2.3 cm/m2 LV Mass: 252.26 67-162/88-224 g LV Mass Index: 140.93 43-95/49-115 g/m2 LVOT Diam: 2.20 3.0+(-)1.3 cm 2D Systolic Function EF 4C: 60.90 >55% EF 2C: 54.70 >55% EF BiP: 58.90 >55% Mitral Valve MV Pk E: 0.64 MV PK A: 0.62 MV Decel Time: 163.00 E/A: 1.00 E'Lateral: 7.40 E'Medial: 6.64 E/E' Med: 9.70 E/E' Lat: 8.70 PHT: 48.00 MVA PHT: 4.58 Decel Upson: 3.81 Aortic Valve AoV Pk Zbigniew: 1.33 AoV Mn Zbigniew: 1.01 AoV VTI: 0.33 AoV Pk Grad: 7.00 Aov Mn Grad: 4.00 LANNY Cont.VTI: 2.73 LVOT LVOT Pk Zbigniew: 1.06 LVOT Mn Zbigniew: 0.64 LVOT VTI: 0.24 LVOT Pk Grad: 4.00 LVOT Mn Grad: 2.00 LVOT Diam: 2.20 LVOT Area: 3.80 Diastolic Function MV Pk E: 0.64 MV Pk A: 0.62 E/A: 1.00 E'Medial: 6.64 E/E' Med: 9.70 E' Laterial: 7.40 E/E' Lat: 8.70 Right Ventricle TAPSE (mm): 33.00 TVS' Zbigniew: 20.00 Tricuspid Valve TR Pk Zbigniew: 2.06 TR Pk Grad: 17.00 RA Press: 3.00 RVSP: 20.00 Great Vessels Aorta Ao Asc: 3.20 2.1-3.4 cm Pulmonary Valve PV Pk Zbigniew: 0.98 Peak PV Grad: 4.00 HI Pk Zbigniew: 1.05 Updated in Other Vendor System with Status of Final Julien Dickens MD electronically signed on 09/27/2021 10:12:44 PM with status of Final
--- NOTE | 2021-09-27 09:34 | PM.CNCAR ---
History of Present Illness History of Present Illness Date of Service: 09/27/21 Chief complaint: syncope Narrative: This is a cardiology consultation regarding syncopal episode. Patient states that he was having dinner and was about to pay the bill. At that time, he apparently could not see bill and it seemed as though it was all hazy. Then he apparently leaned on one of the other people in the dinner table and then eventually on the ground. He thinks he may have lost consciousness for a 3-4 minutes or so but not clear. No speech issues. No extremity weakness or tingling or numbness or any neurological complaints. No anginal-type symptoms or shortness of breath or palpitations or any cardiac issues either. Today states he feels great. In the past, apparently had a myocardial infarction in the late s. At that time he states he got thrombolytic therapy with tPA but never had any angiogram after that. He still sees Cardiology in [place] and was told that everything was normal. Review of Systems Review of Systems: Yes all other systems are reviewed and are negative Constitutional: Constitutional: Reports as per HPI Eyes: Eyes: Reports as per HPI ENT: Reports as per HPI Cardiovascular: Cardiovascular: Reports as per HPI, Denies acrocyanosis, Denies cool extremities, Denies chest pain, Denies leg edema, Denies lightheadedness, Denies palpitations and Denies dyspnea Respiratory: Respiratory: Reports as per HPI, Reports no additional respiratory complaints and Denies dyspnea Gastrointestinal: Gastrointestinal: Reports as per HPI and Reports no additional gastrointestinal complaints Genitourinary: Genitourinary: Reports no additional male genitourinary complaints and Reports as per HPI Musculoskeletal: Musculoskeletal: Reports no additional musculoskeletal complaints and Reports as per HPI Integumentary/Breasts: Skin/Breast: Reports system reviewed and no additional complaints, except as docu Neurologic: Reports system reviewed and no additional complaints, except as documented and Reports as per HPI Psychiatric: Psychiatric: Reports no additional psychiatric complaints and Reports as per HPI Endocrine: Endocrine: Reports no additional endocrine complaints, Reports as per HPI and Denies palpitations Hematologic/Lymphatic: Hematologic/Lymphatic: Reports no additional hematologic/lymphatic complaints and Reports as per HPI Allergic/Immunologic: Allergic/Immunologic: Reports no additional allergic/immunologic complaints and Reports as per HPI [facility] Past Medical History Medical History Polio Family History Family History Father Lung cancer Mother No problems noted. Son In good health Surgical History Surgical History No pertinent past surgical history Social History Social History Household Members: Spouse Housing: House Alcohol intake: current Alcohol intake frequency: a few times a week Alcohol type: wine Patient Tobacco Use Status: Former Tobacco user Second Hand Smoke Exposure: No Current occupational status: retired Meds Allergies Allergy/AdvReac Type Severity Reaction Status Date / Time hydrochlorothiazide Allergy Unknown Unknown Verified 09/25/21 21:12 [From Dyazide] triamterene [From Dyazide] Allergy Unknown Unknown Verified 09/25/21 21:12 Active Medications: Current Medications Acetaminophen (Acetaminophen 325 Mg Tablet) 650 mg PO Q6H PRN PRN Reason: Pain, Mild (Pain Scale 1-3) Atorvastatin Calcium (Atorvastatin Calcium 40 Mg Tablet) 40 mg PO BEDTIME [facility] Last Admin: 09/26/21 21:33 Dose: 40 mg Documented by: Heparin Sodium (Porcine) (Heparin Sodium,Porcine 5,000 Unit/Ml Vial) 5,000 unit SUBCUT Q8H [facility] Last Admin: 09/27/21 03:30 Dose: 5,000 unit Documented by: Hydromorphone HCl (Hydromorphone Hcl 1 Mg/Ml Syringe) 0.5 mg IVPUSH Q4H PRN; Protocol PRN Reason: Pain, Severe (Pain Scale 7-10) Lisinopril (Lisinopril 40 Mg Tablet) 40 mg PO DAILY [facility]; Protocol Last Admin: 09/27/21 07:30 Dose: 40 mg Documented by: Melatonin (Melatonin 3 Mg Tablet) 6 mg PO BEDTIME PRN PRN Reason: Insomnia Metoprolol Succinate (Metoprolol Succinate Er 25 Mg Tab.Er.24h) 25 mg PO DAILY [facility]; Protocol Last Admin: 09/27/21 07:30 Dose: 25 mg Documented by: Senna (Sennosides 8.6 Mg Tablet) 17.2 mg PO BEDTIME PRN PRN Reason: Constipation Sodium Chloride (0.9 % Sodium Chloride Flush 3 Ml Syringe) 3 ml IVFLUSH QSHIFT [facility] Last Admin: 09/27/21 07:31 Dose: 3 ml Documented by: Tamsulosin HCl (Tamsulosin Hcl 0.4 Mg Capsule) 0.4 mg PO BEDTIME [facility] Last Admin: 09/26/21 21:33 Dose: 0.4 mg Documented by: Home Medications Medication Instructions Recorded Confirmed Last Taken Type hydrochlorothiazide 12.5 mg tablet 12.5 mg PO DAILY 05/27/20 09/26/21 09/25/21 History 12.5 aspirin 81 mg chewable tablet 81 mg PO DAILY 09/26/21 09/26/21 09/25/21 History Physical Exam Vital Signs: Vital Signs: Last Vital Signs Temp 97.4 F 09/27/21 08:00 Pulse 67 09/27/21 08:00 Resp 18 09/27/21 08:00 BP 143/52 H 09/27/21 08:00 Pulse Ox 97 09/27/21 08:00 BMI result Body Mass Index 24.0 Const: General: comfortable and no acute distress Orientation/consciousness: patient oriented x3 HEENT: Other: Unremarkable Head: Yes normal to inspection Neck: Neck: Yes normal visual inspection Chest: Chest palpation & inspection: normal inspection of the chest Resp: Auscultation: clear to auscultation bilaterally Cardio: Palpation: normal PMI Heart sounds: S1 normal heart sound present, S2 normal heart sound present, no gallops, no murmurs and no rubs GI: Palpation (GI): Soft to palpation Back/Spine/Pelvis: Other: unremarkable Skin: General skin exam: no rashes or lesions noted Neuro: General: patient oriented x3 Extrem: General: Yes normal to inspection Psych: Mental Status: mental status grossly normal Objective Labs and Meds Result diagrams: 09/26/21 06:24 09/26/21 06:24 ECG Interpretation: EKG with sinus rhythm at 66/Min; no significant ST-T changes and otherwise unremarkable. Assessment and Plan (1) Syncope: Status: Acute Plan Labs reviewed. Potassium 4.5. Creatinine 0.74. High sensitivity troponin 4.2/6.3. COVID status negative. CT had reported to have no acute hemorrhage or mass effect. Mild diffuse atrophy. Chest x-ray reported to have mildly hyperinflated lungs but otherwise no acute disease. Telemetry does not show any arrhythmias. Overall, no obvious explanation for his syncopal episode. No evidence of any arrhythmias based on telemetry and there is no evidence of acute coronary syndrome either. We will review the echocardiogram once completed. Otherwise, could be a transient ischemic attack and consider neurology workup in that regard. 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 Procedures Date of Service Date of Service: 09/27/21
--- NOTE | 2021-09-27 11:04 | HO.PM.IMPN ---
Subjective Subjective Date of Service: 09/27/21 Review of Systems Follow up syncope No chest pain, sob no further episodes of syncope Physical Exam Vital Signs: Vital Signs: Last Vital Signs Temp 97.4 F 09/27/21 08:00 Pulse 67 09/27/21 08:00 Resp 18 09/27/21 08:00 BP 143/52 H 09/27/21 08:00 Pulse Ox 97 09/27/21 08:00 BMI result Body Mass Index 24.0 Appearing in no acute distress lung sounds are clear to auscultation heart regular rate rhythm, clear S1, S2 positive bowel sounds, abdomen is soft, nontender neuro patient is alert x3, no focal deficits Objective Data Active Medications Acetaminophen (Acetaminophen 325 Mg Tablet) 650 mg PO Q6H PRN PRN Reason: Pain, Mild (Pain Scale 1-3) Atorvastatin Calcium (Atorvastatin Calcium 40 Mg Tablet) 40 mg PO BEDTIME [facility] Last Admin: 09/26/21 21:33 Dose: 40 mg Documented by: DARRYL Heparin Sodium (Porcine) (Heparin Sodium,Porcine 5,000 Unit/Ml Vial) 5,000 unit SUBCUT Q8H [facility] Last Admin: 09/27/21 03:30 Dose: 5,000 unit Documented by: DARRYL Hydromorphone HCl (Hydromorphone Hcl 1 Mg/Ml Syringe) 0.5 mg IVPUSH Q4H PRN; Protocol PRN Reason: Pain, Severe (Pain Scale 7-10) Lisinopril (Lisinopril 40 Mg Tablet) 40 mg PO DAILY [facility]; Protocol Last Admin: 09/27/21 07:30 Dose: 40 mg Documented by: RUSSELL Melatonin (Melatonin 3 Mg Tablet) 6 mg PO BEDTIME PRN PRN Reason: Insomnia Metoprolol Succinate (Metoprolol Succinate Er 25 Mg Tab.Er.24h) 25 mg PO DAILY [facility]; Protocol Last Admin: 09/27/21 07:30 Dose: 25 mg Documented by: RUSSELL Senna (Sennosides 8.6 Mg Tablet) 17.2 mg PO BEDTIME PRN PRN Reason: Constipation Sodium Chloride (0.9 % Sodium Chloride Flush 3 Ml Syringe) 3 ml IVFLUSH QSHIFT [facility] Last Admin: 09/27/21 07:31 Dose: 3 ml Documented by: HO.KODOSOB Tamsulosin HCl (Tamsulosin Hcl 0.4 Mg Capsule) 0.4 mg PO BEDTIME [facility] Last Admin: 09/26/21 21:33 Dose: 0.4 mg Documented by: DARRYL Labs CBC & Chem 7: 09/26/21 06:24 09/26/21 06:24 Assessment and Plan (1) Syncope: Status: Acute Plan 86-year-old man with history of hypertension, hyperlipidemia, BPH and gout placed on observation for an episode of syncope while out to dinner Syncope. No history of this in the past Head CT negative for any acute abnormality EKG nonischemic, negative troponin Continue to monitor on telemetry Echocardiogram pending Physical therapy evaluation Check orthostatic blood pressures seen by cardiology, rec MRI/MRA neck does not appear to be cardiac in nature Hypertension Continue home medications, stable blood pressure Hyperlipidemia Statin BPH Continue Flomax DVT prophylaxis with heparin Full code Attending Dr. Goncalves Quality Stroke Does the patient have a stroke diagnosis?: No VTE Prior VTE?: No VTE Risk Level:: Medical - moderate - high VTE Device Contraindication: Treatment Not Indicated VTE Drug Contraindication: N/A - Med Ordered
[2021-09-27 12:00] VITALS: BP 148/68; PULSE 57; RESP 14; TEMP 37.1; O2SAT 96
[2021-09-27] MEDS: iohexoL 350 MG/ML 100 ML INFUS..BTL IV (14:40)
--- NOTE | 2021-09-27 15:21 | MHC.CM.PN ---
CM MET WITH PT AND AT BEDSIDE PT LIVES AT HOME AND IS INDEPENDENT WITH CARE AND MOBILITY PT HAS NO DME AND NO HOME SERVICES PT REPORTS HE DOES NOT HAVE A HCP, HE WOULD LIKE TO TAKE A BLANK WITH HIM PT REPORTS HE IS COVID-19 VACCINATED PCP: ERIKA MORROW OBSERVATION NOTICE DELIVERED CURRENT DC PLAN IS HOME WITH NO SERVICES FAMILY WILL TRANSPORT
[2021-09-27 16:00] VITALS: BP 156/69; PULSE 60; RESP 18; TEMP 36.4; O2SAT 97
--- NOTE | 2021-09-27 16:43 | PM.DS ---
DS: Providers Provider Date of Service: 09/27/21 <Kaelyn Navarro NP - Last Filed: 09/28/21 11:32> Date of admission: 09/25/21 22:59 <Kaelyn Navarro NP - Last Filed: 09/28/21 11:32> Primary care physician: Garrison Brice PA-C <Kaelyn Navarro NP - Last Filed: 09/28/21 11:32> Consults: 09/26/21 10:40 Consult to Cardiology Routine Consulting Provider: Galdino Tijerina Reason for consultation: syncope Has provider been notified: No <Kaelyn Navarro NP - Last Filed: 09/28/21 11:32> Attending physician on discharge: Louis Goncalves <Kaelyn Navarro NP - Last Filed: 09/28/21 11:32> Discharging clinician: Kaelyn Navarro <Kaelyn Navarro NP - Last Filed: 09/28/21 11:32> DS: Diagnosis Discharge Diagnosis (1) Syncope: Status: Acute <Kaelyn Navarro NP - Last Filed: 09/28/21 11:32> DS: Summary Hospital Course Hospital Course: HP as per admitting provider 86-year-old male with a past medical history of hypertension, hyperlipidemia, BPH, gout presented to the hospital with a chief complaint of syncope.?Patient reported that? he was having dinner;? suddenly he felt lightheaded followed by fainted; he was slowly landed onto the ground with the help of the ? Members next to him in the rested.?Mentioned that he briefly lost consciousness; denied any seizure-like activity.? Denied any postictal confusion.? ? Patient reported that after he wake up he had an episode of vomiting. Subsequently EMS was called in and sent him to the hospital for further evaluation.?At the time of atrial patient denies any chest pain palpitations lightheadedness or dizziness.? Denies any numbness tingling or focal weakness.? Denies any GI symptoms.?Mentions that he had like lightheadedness dizziness in the past but never had syncope.? Reports he has been keeping up with fluids.? Also mentions that he has been complaint with his home medications.?Review of all other systems is negative except mentioned above ER course: Per ER team patient's exam was nonfocal; EKG showed no evidence of ischemia; admitted to the hospital for further management . Syncope.? No history of this in the past, no episodes of syncope while hospitalized Monitored on telemetry with no noted arrhythmia MRI showed chronic lacunar infarct, head and neck CTA was unremarkable for carotid artery stenosis or occlusion EKG nonischemic, negative troponin Continue to monitor on telemetry not orthostatic patient feeling fine and would like to go home seen by cardiology symptoms do not appear to be cardiac in nature Patient to follow up with his tour bus driver/guide for possible holter monitor placement to rule out arryhthmia causing symptoms Hypertension Continue home medications, stable blood pressure Hyperlipidemia Statin BPH Continue Flomax Hyponatremia Chronic Also could be secondary to HCTZ Follow up with PCP to further assess this <Kaelyn Navarro NP - Last Filed: 09/28/21 11:32> Time Spent with Patient Time attestation: Total time spent providing and/or coordinating discharge services: <Kaelyn Navarro NP - Last Filed: 09/28/21 11:32> Discharge coordination time: Greater than 30 minutes <Kaelyn Navarro NP - Last Filed: 09/28/21 11:32> Quality: Safe Use of Opioids Does Pt have an Active Cancer Diagnosis on the Problem List?: No <Kaelyn Navarro NP - Last Filed: 09/28/21 11:32> Quality: Stroke Does the patient have a stroke diagnosis?: No <KHANG Pritchard Last Filed: 09/28/21 11:32> Physical Exam Vital Signs: Vital Signs: Last Vital Signs Temp 97.5 F 09/27/21 16:00 Pulse 60 09/27/21 16:00 Resp 18 09/27/21 16:00 BP 156/69 H 09/27/21 16:00 Pulse Ox 97 09/27/21 16:00 BMI result Body Mass Index 24.0 <KHANG Pritchard Last Filed: 09/28/21 11:32> Appearing in no acute distress head is normocephalic atraumatic eyes pupils are PERRLA sclera is anicteric mouth throat mucous membranes are intact and moist neck is supple no lymphadenopathy, no JVD noted lung sounds are clear to auscultation heart regular rate rhythm, clear S1, S2 positive bowel sounds, abdomen is soft, nontender neuro patient is alert x3, no focal deficits <Kaelyn Navarro NP - Last Filed: 09/28/21 11:32> Discharge Plan Discharge Anticipated Discharge Date/Time: 09/27/21 16:37 <Kaelyn Navarro NP - Last Filed: 09/28/21 11:32> Patient Disposition: Home, Self-Care <Kaelyn Navarro NP - Last Filed: 09/28/21 11:32> Discharge Diagnosis: Syncope hyponatremia, chronic <Kaelyn Navarro NP - Last Filed: 09/28/21 11:32> Referrals: Garrison Brice PA-C [Primary Care Provider] - 1 Week <Kaelyn Navarro NP - Last Filed: 09/28/21 11:32> Discharge Medications: Continued lisinopril 40 mg tablet 40 mg PO DAILY Qty: 90 2RF atorvastatin 40 mg tablet 40 mg PO DAILY Qty: 90 2RF tamsulosin 0.4 mg capsule 0.4 mg PO BEDTIME 90 Days Qty: 90 2RF metoprolol succinate 25 mg tablet extended release 24 hr 25 mg PO DAILY Qty: 90 0RF allopurinol 300 mg tablet 300 mg PO DAILY Qty: 90 0RF aspirin 81 mg Tablet,Chewable 81 mg PO DAILY 0RF hydrochlorothiazide 12.5 mg tablet 12.5 mg PO DAILY 0RF <Kaelyn Navarro NP - Last Filed: 09/28/21 11:32> Discharge Orders: Discharge Order (Routine); Ordered 09/27/21 Ordered By: Kaelyn Navarro <Kaelyn Navarro NP - Last Filed: 09/28/21 11:32> Diet: advance to usual diet <Kaelyn Navarro NP - Last Filed: 09/28/21 11:32> Activity on Discharge: As tolerated <Kaelyn Navarro NP - Last Filed: 09/28/21 11:32> Stand Alone Forms: Patient Portal Discharge page <Kaelyn Navarro NP - Last Filed: 09/28/21 11:32> Other Ambulatory Orders: Basic Metabolic Panel (Routine) Timeframe: [id number] Facility: [facility] - Location: Laboratory Ordered By: Kaelyn Navarro <Kaelyn Navarro NP - Last Filed: 09/28/21 11:32> Care Plan Goals: no further episodes of syncope <Kaelyn Navarro NP - Last Filed: 09/28/21 11:32> Health Concerns: syncope <Kaelyn Navarro NP - Last Filed: 09/28/21 11:32> Plan of Treatment: Follow-up with primary care provider to assess the need to continue HCTZ as this may be causing hyponatremia Follow-up with tour bus driver/guide for a Holter monitor placement check labs in 2 days <Kaelyn Navarro NP - Last Filed: 09/28/21 11:32> Assessment: see discharge summary <Kaelyn Navarro NP - Last Filed: 09/28/21 11:32> Discharge Date/Time: 09/27/21 17:38 <Kaelyn Navarro NP - Last Filed: 09/28/21 11:32>
== END 2021-09-27 17:38 | disposition home or self-care (01) ==
LOC: HO.ED 23:06 → HO.EDOVER 23:09 → HO.S3 09-26 18:25
PROVIDERS: Admitting Provider Hospitalist; Emergency Provider Student in an Organized Health Care Education/Training Program; PCP Physician Assistant; Visit Provider Nurse Practitioner Acute Care
DX: R55 Syncope and collapse (principal); E87.1 Hypo-osmolality and hyponatremia; I10 Essential (primary) hypertension; E78.5 Hyperlipidemia, unspecified; N40.1 Benign prostatic hyperplasia with lower urinary tract symptoms; N13.8 Other obstructive and reflux uropathy; D64.9 Anemia, unspecified; I25.10 Atherosclerotic heart disease of native coronary artery without angina pectoris; I63.81 Other cerebral infarction due to occlusion or stenosis of small artery; M10.9 Gout, unspecified; A80.9 Acute poliomyelitis, unspecified; Z87.891 Personal history of nicotine dependence; Z20.822 Contact with and (suspected) exposure to COVID-19; Z88.8 Allergy status to other drugs, medicaments and biological substances; Z79.82 Long term (current) use of aspirin; Z79.899 Other long term (current) drug therapy
CPT/HCPCS: 36415; 70450; 70496; 70498; 70551; 71045; 80048; 81003; 84484; 85025; 87635; 93005; 93306; 96372; 96374; 99205; 99218; 99285; Q9967

== ENCOUNTER 2021-09-29 08:42 | Outpatient (REF) | payer MEDICARE, SELFPAY ==
[2021-09-29 09:42] LABS: Hematocrit 36.9 % (42.0-52.0); Hemoglobin 12.7 g/dl (14.0-18.0); Mean Corpuscular HGB Conc 34.4 g/dl (31.0-36.0); Mean Corpuscular Hemoglobin 33.7 pg (27.0-33.0); Mean Corpuscular Volume 97.9 fL (80.0-98.0); Mean Platelet Volume 9.8 fL (9.4-12.4); Platelet Count 163 X10*3/uL (160-400); Red Blood Count 3.77 X10*6/uL (4.60-5.80); Red Cell Distribution Width 12.5 % (11.0-16.0); White Blood Count 4.1 X10*3/uL (4.8-10.8)
[2021-09-29 10:03] LABS: Anion Gap 12 (12-20); Blood Urea Nitrogen 18 mg/dL (9-16); Calcium 9.9 mg/dL (8.4-10.2); Carbon Dioxide 26 mmol/L (22-29); Chloride 96 mmol/L (96-108); Cholesterol 118 mg/dL; Estimated Glomerular Filt Rate > 60; Glucose Random 98 mg/dL (60-115); HDL Cholesterol 58 mg/dL; Iron 119 mcg/dL (45-160); LDL Cholesterol Calculated 54 mg/dl; Percent Iron Saturation 41 % (15-50); Sodium 129 mmol/L (135-145); Total Iron Binding Capacity 288 mcg/dL (228-428); Triglycerides 33 mg/dL; Unsaturated Iron Binding 169 ug/dL
[2021-09-29 10:23] LABS: Prostate Specific Antigen Scr 1.41 ng/mL (<0.05-4.0); TSH reflex Free T4 0.82 uIU/mL (0.32-4.0)
[2021-09-29 10:23] LABS: Creatinine Urine 106.06 mg/dL; Microalbum/Creatinine Ratio Ur 8.4 ug/mg cr
== END 2021-09-29 08:43 | disposition home or self-care (01) ==
LOC: HO.LAB 08:42
PROVIDERS: PCP Physician Assistant; Visit Provider Nurse Practitioner Acute Care
DX: E87.1 Hypo-osmolality and hyponatremia (principal); I10 Essential (primary) hypertension; D61.818 Other pancytopenia; D50.9 Iron deficiency anemia, unspecified; I25.10 Atherosclerotic heart disease of native coronary artery without angina pectoris; Z12.5 Encounter for screening for malignant neoplasm of prostate
CPT/HCPCS: 36415; 80048; 80061; 82043; 83540; 84153; 84443; 85027

== ENCOUNTER 2022-02-09 09:03 | Outpatient (REF) | payer MEDICARE, SELFPAY ==
[2022-02-09 10:37] LABS: Alanine Aminotransferase 20 U/L (0-40); Albumin Level 4.3 g/dL (3.5-5.0); Alkaline Phosphatase 101 U/L (39-117); Anion Gap 13 (12-20); Aspartate Amino Transferase 23 U/L (5-37); Bilirubin Total 0.8 mg/dL (0.0-1.0); Blood Urea Nitrogen 12 mg/dL (9-16); Calcium 9.4 mg/dL (8.4-10.2); Carbon Dioxide 27 mmol/L (22-29); Chloride 98 mmol/L (96-108); Estimated Glomerular Filt Rate > 60; Glucose Fasting 108 mg/dL (60-99); Potassium 4.6 mmol/L (3.3-5.1); Sodium 133 mmol/L (135-145); Total Protein 6.8 g/dL (6.5-8.0)
== END 2022-02-09 09:04 | disposition home or self-care (01) ==
LOC: HO.LAB 09:03
PROVIDERS: PCP Physician Assistant; Visit Provider Physician Assistant
DX: I10 Essential (primary) hypertension (principal)
CPT/HCPCS: 36415; 80053

== ENCOUNTER → 2022-04-28 10:33 | Outpatient (BNVA) | payer MEDICARE, SELFPAY | PROVIDERS: PCP Physician Assistant; Visit Provider Urology | DX: R35.1 Nocturia (principal) | CPT/HCPCS: 99212 ==

== ENCOUNTER 2022-08-31 08:30 | Outpatient (REF) | payer MEDICARE, SELFPAY ==
[2022-08-31 09:37] LABS: Hemoglobin 12.7 g/dl (14.0-18.0); Mean Corpuscular HGB Conc 34.3 g/dl (31.0-36.0); Mean Corpuscular Hemoglobin 33.3 pg (27.0-33.0); Mean Corpuscular Volume 97.1 fL (80.0-98.0); Mean Platelet Volume 9.8 fL (9.4-12.4); Platelet Count 149 X10*3/uL (160-400); Red Blood Count 3.81 X10*6/uL (4.60-5.80); Red Cell Distribution Width 12.7 % (11.0-16.0); White Blood Count 3.6 X10*3/uL (4.8-10.8)
[2022-08-31 10:27] LABS: Creatinine Urine 99.01 mg/dL
[2022-08-31 10:37] LABS: Alanine Aminotransferase 18 U/L (0-40); Albumin Level 4.3 g/dL (3.5-5.0); Alkaline Phosphatase 86 U/L (39-117); Anion Gap 11 (12-20); Aspartate Amino Transferase 24 U/L (5-37); Bilirubin Total 1.5 mg/dL (0.0-1.0); Blood Urea Nitrogen 16 mg/dL (9-16); Calcium 9.5 mg/dL (8.4-10.2); Carbon Dioxide 28 mmol/L (22-29); Chloride 98 mmol/L (96-108); Cholesterol 115 mg/dL; Estimated Glomerular Filt Rate > 60; Glucose Fasting 98 mg/dL (60-99); HDL Cholesterol 56 mg/dL; Iron 111 mcg/dL (45-160); LDL Cholesterol Calculated 53 mg/dl; Percent Iron Saturation 42 % (15-50); Potassium 4.6 mmol/L (3.3-5.1); Sodium 132 mmol/L (135-145); Total Iron Binding Capacity 264 mcg/dL (228-428); Total Protein 6.7 g/dL (6.5-8.0); Triglycerides 32 mg/dL; Unsaturated Iron Binding 153 ug/dL
[2022-08-31 11:05] LABS: Folate 14.3 ng/mL (> or = 4.0); TSH reflex Free T4 0.52 uIU/mL (0.32-4.0); Vitamin B12 304 pg/mL (200-900)
== END 2022-08-31 08:31 | disposition home or self-care (01) ==
LOC: HO.LAB 08:30
PROVIDERS: PCP Physician Assistant; Visit Provider Physician Assistant
DX: D50.9 Iron deficiency anemia, unspecified (principal); D61.818 Other pancytopenia; I10 Essential (primary) hypertension; E53.8 Deficiency of other specified B group vitamins
CPT/HCPCS: 36415; 80053; 80061; 82043; 82607; 82746; 83540; 84443; 85027

== ENCOUNTER 2023-01-24 06:48 | Emergency (ER) | payer MEDICARE, SELFPAY ==
[2023-01-24] VITALS (8 sets, daily range): BP systolic 155–187; BP diastolic 43–68; PULSE 54–77; RESP 13–14; TEMP 36.5; O2SAT 96–99; BMI 23.5
--- NOTE | ~2023-01-24 | XR_ITS ---
EXAMINATION: XR SHOULDER, RIGHT CLINICAL INFORMATION: Right shoulder pain status post fall. COMPARISON: None available. TECHNIQUE: Three views of the right shoulder. FINDINGS: The bones and soft tissues are normal. No fracture. Glenohumeral and acromioclavicular alignment is anatomic with normal joint space. No abnormal soft tissue calcifications. XR/XR shoulder RT min 2V IMPRESSION: Unremarkable right shoulder.
--- NOTE | 2023-01-24 06:57 | ECG_ITS ---
Test Reason : Chest pain Blood Pressure : / mmHG Vent. Rate : 060 BPM Atrial Rate : 060 BPM P-R Int : 160 ms QRS Dur : 100 ms QT Int : 400 ms P-R-T Axes : 026 -25 -07 degrees QTc Int : 400 ms Normal sinus rhythm Minimal voltage criteria for LVH, may be normal variant ( R in aVL ) Inferior infarct , age undetermined Abnormal ECG When compared with ECG of 25-SEP-2021 21:13, Inferior infarct is now Present Referred By: Connie Mena Electronically Signed By:RENARD MCLAUGHLIN
--- NOTE | 2023-01-24 07:02 | ED.CHESTPAIN ---
HPI - Chest Pain General Chief Complaint: Dizziness Stated Complaint: cp Time Seen by Provider: 01/24/23 06:57 Source: patient Mode of arrival: EMS History of Present Illness HPI narrative: 87-year-old male is brought in by EMS from home and reports increased dizziness and weakness x1 week as per the triage note, however patient did not endorse this and states that he has otherwise been feeling well and denies any fever, chills, nausea, vomiting, abdominal discomfort or diarrhea and denies any urinary symptoms. At present patient denies any shortness of breath/chest pain/palpitations. Patient states that he has been feeling dizzy primarily in the morning when he gets out. He endorses that that is what happened this morning and he caught himself with his right upper extremity on the dresser but it twisted him around and he ended up falling on his bottom and striking his left elbow. He denies any head strike or loss of consciousness. Related Data Home Medications Medication Instructions Recorded Confirmed hydrochlorothiazide 12.5 mg tablet 12.5 mg PO DAILY 05/27/20 11/07/22 aspirin 81 mg chewable tablet 81 mg PO DAILY 09/26/21 11/07/22 Previous Rx's Medication Instructions Recorded tamsulosin 0.4 mg capsule 0.4 mg PO BEDTIME 90 days #90 caps 04/28/22 allopurinol 300 mg tablet 300 mg PO DAILY #90 tabs 05/16/22 lisinopril 40 mg tablet 40 mg PO DAILY #90 tabs 09/02/22 metoprolol succinate 25 mg 25 mg PO DAILY #90 tabs 11/14/22 tablet,extended release 24 hr atorvastatin 40 mg tablet 40 mg PO DAILY #90 tabs 01/09/23 Allergies Allergy/AdvReac Type Severity Reaction Status Date / Time hydrochlorothiazide Allergy Unknown Unknown Verified 11/07/22 09:55 [From Dyazide] triamterene [From Dyazide] Allergy Unknown Unknown Verified 11/07/22 09:55 Review of Systems Review of Systems: Rinne positives and negatives as stated in HPI PMFSH Past Medical History Source: nursing notes reviewed Medical History Anemia BPH w urinary obs/LUTS CAD (coronary artery disease) HTN (hypertension) Polio Surgical History History of biopsy Family History Family History Father Lung cancer Mother No problems noted. Son In good health Social History Social History Household Members: Spouse Housing: House Are you a primary career development associate to a significant other at home: No Do you presently have visiting nurse or other home services: No Alcohol intake: current Alcohol intake frequency: a few times a week Alcohol type: wine Patient Tobacco Use Status: Former Tobacco user Tobacco use type: Cigarette Cigarettes Per Day: 20 e-Cigarette/Vaping Use: Never Used Second Hand Smoke Exposure: No Advance Directives: No Advance Directives Information Provided: No service: Yes Current occupational status: retired Cognitive needs: Yes Hearing needs: No Vision needs: No Physical Exam Vital Signs: Vital Signs: Last Vital Signs Temp 97.7 F 01/24/23 06:56 Pulse 59 01/24/23 07:37 Resp 14 01/24/23 07:37 BP 172/61 H 01/24/23 07:37 Pulse Ox 97 01/24/23 07:37 O2 Del Method Room Air 01/24/23 07:37 BMI result Body Mass Index 23.5 VITAL SIGNS: Reviewed. GENERAL: Well developed, well nourished, in no acute distress. HEAD: Normocephalic/atraumatic EYES: PERRLA, EOMI EARS: Ext canals without abnormality NOSE: Nares patent bilateral OROPHARYNX: no oral lesions noted, posterior pharynx clear NECK: Supple, no adenopathy LUNGS: Normal breath sounds. No adventitious sounds or accessory muscle use. SpO2<96> CARDIOVASCULAR: Regular rate and rhythm without noted murmurs, no JVD or lower extremity edema. ABDOMEN: Soft, non-tender, non-distended with bowel sounds. PELVIS: Stable, nontender MUSCULOSKELETAL: No tenderness, deformities, or effusions noted on gross inspection. EXTREMITIES: No cyanosis, clubbing or edema. RIGHT SHOULDER: Full range of motion, no obvious deformity. LEFT ELBOW: Skin tear to left elbow otherwise no deformity, full range of motion. SKIN: Inspection of the skin reveals no rashes NEUROLOGIC: Alert and oriented x 4. Strength and sensation to light touch were grossly intact x 4, no facial asymmetry, no pronator drift, cranial nerves 2-12 are grossly intact.. Medications Administered Discontinued Medications Generic Name Dose Route Start Last Admin Trade Name Milagros PRN Reason Stop Dose Admin Hydrochlorothiazide 12.5 mg 01/24/23 08:14 01/24/23 09:02 Hydrochlorothiazide 12.5 Mg Tablet PO 01/24/23 08:15 12.5 mg ONCE ONE Administration Protocol Sodium Chloride 500 mls @ 999 mls/hr 01/24/23 08:15 01/24/23 09:57 Ns IV 01/24/23 08:45 Infused .Q31M BETZY Infusion Lisinopril 40 mg 01/24/23 08:14 01/24/23 09:02 Lisinopril 40 Mg Tablet PO 01/24/23 08:15 40 mg ONCE ONE Administration Protocol Procedures Laceration Laceration 1: Site: upper extremity Side (If applicable): left Size (cm): 3 Description: flap and irregular Depth: simple, single layer Pre-repair: wound explored and irrigated extensively Skin layer closed with: other (Dermabond) Medical Decision Making Medical Decision Making [facility] Narrative: 0718: 87-year-old male with history and clinical presentation, dizziness has resolved, DDX: Postural hypotension/near-syncope, will evaluate for infection, anemia, electrolyte abnormalities or arrhythmias. Patient has no focal deficits at this time and although initial complaint on the chart is chest pain patient denies any chest pain at any time. I do think that there is like you head of medication affect. I reviewed patient's documentation from a cardiology visit 09/2022 and at that time documentation states that patient had no further complaints of syncopal episodes but he describes [place]. Patient does have a lacunar infarct which is identified 2021 and has a remote history of [place] in 1998. I have low clinical suspicion for cardiac event contributing to patient's current symptoms he is on aspirin and so lower clinical suspicion for neurologic deficit as his symptoms appear to be intermittent in nature. Orthostatics are noted to be positive and he will receive 500 cc of normal saline. I reviewed all investigations and hematologic indices appear to be grossly and chronically stable, there is a mild leukopenia but is been longstanding since 09/2021, a stable normocytic anemia and is stable thrombocytopenia. Coagulation studies a grossly within normal limits, chemistry indices I grossly within normal limits and patient has a chronically stable low sodium of 131, there is no JARRETT and no electrolyte or liver enzyme abnormalities. Troponin is detectable though not elevated and there are no acute changes on the EKG. Total bili rheumatoid is noted to fluctuate between normal range and current stable value when compared to August/2022 of 1.2. Shoulder x-ray without acute fracture or dislocation otherwise my interpretation is in agreement with radiology's impression. Given the fact that patient has had a near-syncope episode and orthostatics are positive I suspect that he is suffering from a component of volume depletion, he received his lisinopril and hydrochlorothiazide as he had not had time to take that medication and then he will receive 500 cc of IV fluids and be discharged with instructions follow-up with his primary care doctor. 1046: On re-evaluation after fluid resuscitation with 500 cc, patient's orthostatics had significantly improved and my interpretation is that there is a combination of mild dehydration with the use of tamsulosin and patient was counseled on being cautious with getting up 1st thing in the morning and encouraged to increase his fluid intake. He is otherwise hemodynamically stable and will be discharged with strict instructions to follow-up with his conventions reservationist and primary care doctor. Differential Diagnosis Differential Diagnoses: The differential diagnosis associated with the presentation includes Please see the discussion above Admission/Observation Consideration of admission/observation: Escalation of care including admission/observation considered Please see the discussion above Lab Data MDM Lab Attestation statement: I reviewed the patient's lab results. Please see the discussion above 01/24/23 07:24 01/24/23 07:24 Labs: Lab Results 01/24/23 01/24/23 01/24/23 Range/Units 07:24 07:24 07:24 WBC 3.4 L (4.8-10.8) X10*3/uL RBC 3.71 L (4.60-5.80) X10*6/uL Hgb 12.6 L (14.0-18.0) g/dl Hct 35.6 L (42.0-52.0) % MCV 96.0 (80.0-98.0) fL MCH 34.0 H (27.0-33.0) pg MCHC 35.4 (31.0-36.0) g/dl RDW 12.6 (11.0-16.0) % Plt Count 141 L (160-400) X10*3/uL MPV 9.4 (9.4-12.4) fL Immature Gran % (Auto) 0.3 (0.0-0.4) % Neut % (Auto) 67.6 (45-73) % Lymph % (Auto) 16.3 L (20-40) % [place] % (Auto) 13.7 H (2-11) % Eos % (Auto) 1.2 (0-4) % Baso % (Auto) 0.9 (0-2) % Lymph # (Auto) 0.6 L (1.2-4.9) X10*3/uL [place] # (Auto) 0.5 (0.1-1.2) X10*3/uL Eos # (Auto) 0.0 (0.0-0.4) X10*3/uL Baso # (Auto) 0.0 (0.0-0.2) X10*3/uL Abs Immat Gran (auto) 0.01 (0.00-0.03) X10*3/uL Absolute Neuts (auto) 2.3 (2.0-8.3) x10*3/uL Absolute Nucleated RBC 0.000 (0.0-0.012) X10*3/uL Nucleated RBC % (auto) 0.0 (0.0-0.2) /100WBC PT (11.1-13.3) SEC INR (0.9-1.1) Sodium 131 L (135-145) mmol/L Potassium 5.0 (3.3-5.1) mmol/L Chloride 96 (96-108) mmol/L Carbon Dioxide 27 (22-29) mmol/L Anion Gap 13 (12-20) BUN 11 (9-16) mg/dL Creatinine 0.74 (0.5-1.4) mg/dL Estim Creat Clear Calc 68.2 Estimated GFR > 60 Random Glucose 112 (60-115) mg/dL Calcium 9.9 (8.4-10.2) mg/dL Total Bilirubin 1.2 H (0.0-1.0) mg/dL AST 21 (5-37) U/L ALT 15 (0-40) U/L Alkaline Phosphatase 88 (39-117) U/L Troponin I High Sens 5.9 (<3.5-35.0) ng/L Total Protein 6.9 (6.5-8.0) g/dL Albumin 4.3 (3.5-5.0) g/dL 01/24/23 Range/Units 07:24 WBC (4.8-10.8) X10*3/uL RBC (4.60-5.80) X10*6/uL Hgb (14.0-18.0) g/dl Hct (42.0-52.0) % MCV (80.0-98.0) fL MCH (27.0-33.0) pg MCHC (31.0-36.0) g/dl RDW (11.0-16.0) % Plt Count (160-400) X10*3/uL MPV (9.4-12.4) fL Immature Gran % (Auto) (0.0-0.4) % Neut % (Auto) (45-73) % Lymph % (Auto) (20-40) % [place] % (Auto) (2-11) % Eos % (Auto) (0-4) % Baso % (Auto) (0-2) % Lymph # (Auto) (1.2-4.9) X10*3/uL [place] # (Auto) (0.1-1.2) X10*3/uL Eos # (Auto) (0.0-0.4) X10*3/uL Baso # (Auto) (0.0-0.2) X10*3/uL Abs Immat Gran (auto) (0.00-0.03) X10*3/uL Absolute Neuts (auto) (2.0-8.3) x10*3/uL Absolute Nucleated RBC (0.0-0.012) X10*3/uL Nucleated RBC % (auto) (0.0-0.2) /100WBC PT 11.9 (11.1-13.3) SEC INR 1.0 (0.9-1.1) Sodium (135-145) mmol/L Potassium (3.3-5.1) mmol/L Chloride (96-108) mmol/L Carbon Dioxide (22-29) mmol/L Anion Gap (12-20) BUN (9-16) mg/dL Creatinine (0.5-1.4) mg/dL Estim Creat Clear Calc Estimated GFR Random Glucose (60-115) mg/dL Calcium (8.4-10.2) mg/dL Total Bilirubin (0.0-1.0) mg/dL AST (5-37) U/L ALT (0-40) U/L Alkaline Phosphatase (39-117) U/L Troponin I High Sens (<3.5-35.0) ng/L Total Protein (6.5-8.0) g/dL Albumin (3.5-5.0) g/dL Independent Interpretation I performed an independent interpretation of an: EKG Interpretation: Normal sinus rhythm, HR-60, no STEMI, VA/QRS/QTC is within normal limits Radiology Impression Radiologist Impression: Please see the discussion above External Record Review External record reviewed: Outpatient record, Prior outpatient labs, Prior outpatient radiology and Other (Outside cardiology record) Chronic Conditions Patient?s care impacted by: Hypertension Critical Care Time Critical Care Time Critical Care Time: Yes Total Critical Care Time: 30 Attestation: I personally attest to this time spent taking care of the patient. Discharge Plan Discharge Clinical Impression: Vasovagal near syncope, Mild dehydration, Skin tear of left upper extremity, Pain in right shoulder, Medication side effect Patient Disposition: Home, Self-Care Instructions: Dehydration (ED), Near Syncope (ED), Skin Tear (ED), Shoulder Pain (ED) Additional Instructions: 1. Resume all home medications as prescribed. 2. Please follow-up with your conventions reservationist by calling the office today and setting up an appointment for re-evaluation further outpatient management. 3. Please follow-up with your primary care doctor. Return to the ER for any worsening symptoms. Prescriptions: No Action tamsulosin 0.4 mg capsule 0.4 mg PO BEDTIME 90 Days Qty: 90 3RF allopurinol 300 mg tablet 300 mg PO DAILY Qty: 90 2RF lisinopril 40 mg tablet 40 mg PO DAILY Qty: 90 2RF metoprolol succinate 25 mg tablet extended release 24 hr 25 mg PO DAILY Qty: 90 1RF atorvastatin 40 mg tablet 40 mg PO DAILY Qty: 90 2RF aspirin 81 mg Tablet,Chewable 81 mg PO DAILY hydrochlorothiazide 12.5 mg tablet 12.5 mg PO DAILY Referrals: Garrison Brice PA-C [Physician Offset Proof Press Operator] - Krish Sims MD [Physician] -
[2023-01-24 07:29] LABS: MANUAL DIFF FLAG NO
[2023-01-24 07:38] LABS: Basophils Percent Auto 0.9 % (0-2); Eosinophils Percent Auto 1.2 % (0-4); Hematocrit 35.6 % (42.0-52.0); Hemoglobin 12.6 g/dl (14.0-18.0); Imm Gran Abs Auto 0.01 X10*3/uL (0.00-0.03); Imm Gran Pct Auto 0.3 % (0.0-0.4); Lymphocytes Absolute Auto 0.6 X10*3/uL (1.2-4.9); Lymphocytes Percent Auto 16.3 % (20-40); Mean Corpuscular HGB Conc 35.4 g/dl (31.0-36.0); Mean Platelet Volume 9.4 fL (9.4-12.4); Monocytes Absolute Auto 0.5 X10*3/uL (0.1-1.2); Monocytes Percent Auto 13.7 % (2-11); Neutrophils Absolute Auto 2.3 x10*3/uL (2.0-8.3); Neutrophils Percent Auto 67.6 % (45-73); Platelet Count 141 X10*3/uL (160-400); Red Blood Count 3.71 X10*6/uL (4.60-5.80); Red Cell Distribution Width 12.6 % (11.0-16.0); White Blood Count 3.4 X10*3/uL (4.8-10.8)
[2023-01-24 07:39] LABS: Prothrombin Time 11.9 SEC (11.1-13.3)
--- OUTSIDE RECORDS SUMMARY | 2023-01-24 07:40 | XMS_ITS | Patient Health Record ---
Author Name [facility] Address [address] [place] [address] Care Team Providers Care Interstate Planner Name Role Phone Garrison Brice Primary Care Provider Unavailab Trever Aponte Unavailable [phone] ALLERGIES Allergen (clinical drug ingredient) Drug/Non Drug Allergy documented on EMR Reaction Allergy Type Onset Date Status Dyazide dizziness Drug Allergy Active REASON FOR REFERRAL No Information MEDICATIONS Medication SIG (Take, Route, Frequency, Duration) Notes Start Date End Date Status Heparin (Porcine) in NaCl Not-Taking Metoprolol Tartrate 25 MG 1 tablet with food Orally Twice a day for 30 day(s) Active Lisinopril 40 MG 1 tablet Orally Once a day for 30 day(s) Active hydroCHLOROthiazide 12.5 MG 1 capsule in the morning Orally Once a day for 30 day(s) Active Ecotrin 81 MG Active Atorvastatin Calcium 40 MG 1 tablet Oral ly Once a day for 30 day(s) Active Allopurinol 300 MG 1 tablet Orally Once a day for 30 day(s) Active IMMUNIZATIONS Vaccine Route Administration Date Status Comme nts COVID-19 Pfizer BioNTech Vaccine Unknown 06/25/2021 Administered 1st 07/09/2020 2nd 07/30/2020 Influenza Unknown 05/03/2022 Administered SOCIAL HISTORY Tobacco Use: Social History Observation Description Date Details (start date - stop date) Former Smoker NA - NA Sex Assigned At : Social History Observation Description Sex Assigned At Unknown Tobacco Use/Smoking Question Answer Notes Are you a: former smoker Additional Findings: Tobacco Non-User Current no n-smoker Alcohol Screen Question Answer Notes Did you have a drink containing alcohol in the p ast year? Yes Points 0 Interpretation Negative Tobacco use other than smoking: Question Answer Notes Are you an other tobacco user? No PROBLEMS Problem Type ICD Code Onset Dates Problem Status W/U Status Risk SNOMED Code Notes Problem Atherosclerosis of [place] artery of both lower extremities, with unspecified presence of clinical manifestation (I70.203) Active confirmed Atherosclerosis of [place] arteries of the extremities ([id number]) VITAL SIGNS Height 5 ft 7 in in 12/14/2022 Weight 149 lbs 12/14/2022 BMI 23.33 kg/m2 12/14/2022 PROCEDURES Procedure Date Ordered Date Performed Result Body Sit e 35337-TVOKWGW NAIL, 6 OR MORE 02/25/2022 N/A 46086-JVIK SKIN LESIONS, 2 TO 4 02/25/2022 N/A 10878-LXXTZIR NAIL, 6 OR MORE 05/10/2022 N/A 15411 I&D ABSCESS- SIMPLE,SINGLE 05/10/2022 N/A 57655-BQEJ SKIN LESIONS, 2 TO 4 05/10/2022 N/A 37276-RMLWFSK NAIL, 6 OR MORE 07/28/2022 N/A 73927-NARZ SKIN LESIONS, 2 TO 4 07/28/2022 N/A 59869-WDPTGCW NAIL, 6 OR MORE 10/05/2022 N/A 12459-UMFS SKIN LESIONS, 2 TO 4 10/05/2022 N/A 32956-WPVKRPA NAIL, 6 OR MORE 12/14/2022 N/A 86013-KYZU SKIN LESIONS, 2 TO 4 12/14/2022 N/A Encounters Encounter Location Date Provider Diagnosis [facility] [address] [address] 02/25/2022 Treverjane Torres Atherosclerosis of [place] artery of both lower extremities, with unspecified presence of clinical manifestation I70.203 ; Tinea unguium B35.1 ; Pain in right toe(s) M79.674 and Pain in left toe(s) M79.[address] [facility] [address] 05/10/2022 Trever [place] Atherosclerosis of [place] artery of both lower extremities, with unspecified presence of clinical manifestation I70.203 ; Tinea unguium B35.1 ; Pain in right toe(s) M79.674 ; Pain in left toe(s) M79.675 and Abscess of toe, right L02.611 [facility] [address] [place] [address] 07/26/2022 Trever Torres [address] [address] 07/28/2022 Trever Torres Atherosclerosis of [place] artery of both lower extremities, with unspecified presence of clinical manifestation I70.203 ; Tinea unguium B35.1 ; Pain in right toe(s) M79.674 and Pain in left toe(s) M79.[address] [address] 10/05/2022 Trever Torres Atherosclerosis of [place] artery of both lower extremities, with unspecified presence of clinical manifestation I70.203 ; Tinea unguium B35.1 ; Pain in right toe(s) M79.674 and Pain in left toe(s) M79.[address] [address] 12/14/2022 Trever Torres Atherosclerosis of [place] artery of both lower extremities, with unspecified presence of clinical manifestation I70.203 ; Tinea unguium B35.1 ; Pain in right toe(s) M79.674 and Pain in left toe(s) M79.675 ASSESSMENTS Encounter Date Diagnosis Assessment Notes Treatment Notes Treatment Clinical Notes 02/25/2022 Tinea unguium (ICD-1 0 - B35.1) 02/25/2022 Atherosclerosis of [place] artery of both lower extremities, with unspecified presence of clinical manifestation (ICD-10 - I70.203) 05/10/2022 Tinea unguium (ICD-1 0 - B35.1) 05/10/2022 Atherosclerosis of [place] artery of both lower extremities, with unspecified presence of clinical manifestation (ICD-10 - I70.203) 07/28/2022 Tinea unguium (ICD-1 0 - B35.1) 07/28/2022 Atherosclerosis of [place] artery of both lower extremities, with unspecified presence of clinical manifestation (ICD-10 - I70.203) 10/05/2022 Tinea unguium (ICD-1 0 - B35.1) 10/05/2022 Atherosclerosis of [place] artery of both lower extremities, with unspecified presence of clinical manifestation (ICD-10 - I70.203) 12/14/2022 Tinea unguium (ICD-1 0 - B35.1) 12/14/2022 Atherosclerosis of [place] artery of both lower extremities, with unspecified presence of clinical manifestation (ICD-10 - I70.203) 12/14/2022 Pain in right toe(s) (ICD-10 - M79.674) 07/28/2022 Pain in right toe(s) (ICD-10 - M79.674) 10/05/2022 Pain in right toe(s) (ICD-10 - M79.674) 05/10/2022 Pain in right toe(s) (ICD-10 - M79.674) 02/25/2022 Pain in right toe(s) (ICD-10 - M79.674) 02/25/2022 Pain in left toe(s) (ICD-10 - M79.675) 05/10/2022 Pain in left toe(s) (ICD-10 - M79.675) 07/28/2022 Pain in left toe(s) (ICD-10 - M79.675) 10/05/2022 Pain in left toe(s) (ICD-10 - M79.675) 12/14/2022 Pain in left toe(s) (ICD-10 - M79.675) 05/10/2022 Abscess of toe, righ t (ICD-10 - L02.611) PLAN OF TREATMENT Pending Test Test Name Order Date 30145-ZMODCSR NAIL, 6 OR MORE 12/11/2020 60166-BTDPLRG NAIL, 6 OR MORE 03/05/2021 46035-GUXUKNN NAIL, 6 OR MORE 05/11/2021 21471-DODMKLK NAIL, 6 OR MORE 07/20/2021 51392-KLGVGZA NAIL, 6 OR MORE 10/01/2021 80342-UQFDOEM NAIL, 6 OR MORE 12/14/2021 85140-CJHEAOW NAIL, 6 OR MORE 02/25/2022 75025-NYGSTWN NAIL, 6 OR MORE 07/10/2020 90125-OEWXVDW NAIL, 6 OR MORE 09/29/2020 32909-XQFVRUT NAIL, 6 OR MORE 05/10/2022 80954-BJRJJSP NAIL, 6 OR MORE 07/28/2022 45490-MXFGKQX NAIL, 6 OR MORE 10/05/2022 94179-ABOBNPH NAIL, 6 OR MORE 12/14/2022 04954-EDQOLEL NAIL, 6 OR MORE 05/01/2020 90372-Nhsblurf Plate 09/29/2020 30784 I&D ABSCESS- SIMPLE,SINGLE 022 91042-DMEV SKIN LESIONS, 2 TO 4 12/15/19 23 05558-VUYX SKIN LESIONS, 2 TO 4 05/10/20 22 84558-WRWS SKIN LESIONS, 2 TO 4 10/06/19 23 18809-CULF SKIN LESIONS, 2 TO 4 07/29/19 23 65013-YGYL SKIN LESIONS, 2 TO 4 02/26/20 22 Next Appt Details Provider Name:Trever Hawk Torres , 02/22/2023 10:30:00 AM, [address] [facility], [facility] [address], [place], [address], Insurance Providers Payer Name Payer Address Payer Phone Subscriber Number Group Number Insured Name Patient Relationship to Insured Coverage Start Date Coverage End Date Medicare National Govt Sv[employer] [address] [place] [address] [id number] Santiago Duncan Self - patient is the insured [employer] Blue Shield [address] [place] [address] [id number] Santiago Duncan Self - patient is the insured MEDICAL (GENERAL) HISTORY Medical History History ICD Code Gout Heart disease High blood pressure Polio Measles Mumps CAD Surgical History Surgery Date(Month/Year) Hospitalization History Reason Date(Month/Year) 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
[2023-01-24 07:44] LABS: Alanine Aminotransferase 15 U/L (0-40); Albumin Level 4.3 g/dL (3.5-5.0); Alkaline Phosphatase 88 U/L (39-117); Anion Gap 13 (12-20); Aspartate Amino Transferase 21 U/L (5-37); Bilirubin Total 1.2 mg/dL (0.0-1.0); Blood Urea Nitrogen 11 mg/dL (9-16); Calcium 9.9 mg/dL (8.4-10.2); Carbon Dioxide 27 mmol/L (22-29); Chloride 96 mmol/L (96-108); Creatinine Clr Calc Pharmacy 68.2; Estimated Glomerular Filt Rate > 60; Glucose Random 112 mg/dL (60-115); Sodium 131 mmol/L (135-145); Total Protein 6.9 g/dL (6.5-8.0)
[2023-01-24 07:51] LABS: Troponin-I High Sensitivity 5.9 ng/L (<3.5-35.0)
[2023-01-24] MEDS: lisinopriL 40 MG TABLET PO (09:02)
[2023-01-24] MEDS: hydroCHLOROthiazide 12.5 MG TABLET PO (09:02)
[2023-01-24] MEDS: 0.9 % Sodium Chloride 500 ML 999 ML IV (09:16)
== END 2023-01-24 10:55 | disposition home or self-care (01) ==
PROVIDERS: Emergency Provider Student in an Organized Health Care Education/Training Program
DX: S41.112A Laceration without foreign body of left upper arm, initial encounter (principal); R07.89 Other chest pain; R42 Dizziness and giddiness; E86.0 Dehydration; R55 Syncope and collapse; R11.2 Nausea with vomiting, unspecified; W01.10XA Fall on same level from slipping, tripping and stumbling with subsequent striking against unspecified object, initial encounter; Y93.9 Activity, unspecified; Y92.9 Unspecified place or not applicable; Y99.9 Unspecified external cause status; Z87.891 Personal history of nicotine dependence; Z79.899 Other long term (current) drug therapy
CPT/HCPCS: 12002; 12011; 36415; 73030; 80053; 84484; 85025; 85610; 93005; 96360; 99284; 99285

== ENCOUNTER 2023-02-04 08:10 | Inpatient (IN) | payer MEDICARE, SELFPAY ==
[2023-02-04] VITALS (11 sets, daily range): BP systolic 115–190; BP diastolic 50–74; PULSE 54–72; RESP 12–20; TEMP 36.5–37.2; O2SAT 96–98; BMI 22.4
--- NOTE | ~2023-02-04 | XR_ITS ---
EXAMINATION: XR CHEST CLINICAL INFORMATION: Dizziness. COMPARISON: None available. TECHNIQUE: Frontal view of the chest was obtained. FINDINGS: No significant abnormality is noted involving the heart, lungs, mediastinum, bony thorax or soft tissues. XR/XR chest 1V IMPRESSION: Unremarkable chest examination.
--- OUTSIDE RECORDS SUMMARY | 2023-02-04 09:25 | XMS_ITS | Patient Health Record ---
Author Name Unknown [facility] Address [address] [place] [address] Care Team Providers Care Fixed Income Manager Name Role Phone Garrison Brice Primary Care Provider Unavailab Trever Aponte Unavailable [phone] ALLERGIES Allergen (clinical drug ingredient) Drug/Non Drug [...] Risk SNOMED Code Notes Problem Atherosclerosis of [place] artery of both lower extremities, with unspecified presence of clinical manifestation (I70.203) Active confirmed Atherosclerosis of [place] arteries of the extremities ([id number]) VITAL SIGNS Height 5 ft 7 in in 12/14/2022 Weight 149 lbs 12/14/2022 BMI 23.33 kg/m2 12/14/2022 PROCEDURES Procedure Date Ordered Date Performed Result Body Sit e 32343-QPSUTXI NAIL, 6 OR MORE 02/25/2022 N/A 03546-PJPL SKIN LESIONS, 2 TO 4 02/25/2022 N/A 82962-SJUEIHS NAIL, 6 OR MORE 05/10/2022 N/A 08487 I&D ABSCESS- SIMPLE,SINGLE 05/10/2022 N/A 17144-BPJU SKIN LESIONS, 2 TO 4 05/10/2022 N/A 41841-WZOGNPD NAIL, 6 OR MORE 07/28/2022 N/A 85585-IGQV SKIN LESIONS, 2 TO 4 07/28/2022 N/A 18071-KZYGLIS NAIL, 6 OR MORE 10/05/2022 N/A 09426-ILPW SKIN LESIONS, 2 TO 4 10/05/2022 N/A 52223-XAWQCWK NAIL, 6 OR MORE 12/14/2022 N/A 76368-KJFG SKIN LESIONS, 2 TO 4 12/14/2022 N/A Encounters Encounter Location Date Provider Diagnosis [facility] [address] [address] 02/25/2022 Treverjane Torres Atherosclerosis of [place] artery of both lower extremities, with unspecified presence of clinical manifestation I70.203 ; Tinea unguium B35.1 ; Pain in right toe(s) M79.674 and Pain in left toe(s) M79.675 [facility] [address] 05/10/2022 Trever [place] Atherosclerosis of [place] artery of both lower extremities, with unspecified presence of clinical manifestation I70.203 ; Tinea unguium B35.1 ; Pain in right toe(s) M79.674 ; Pain in left toe(s) M79.675 and Abscess of toe, right L02.611 [facility] [address] [place] [address] 07/26/2022 Trever Torres [address] [address] 07/28/2022 Trever Torres Atherosclerosis of [place] artery of both lower extremities, with unspecified presence of clinical manifestation I70.203 ; Tinea unguium B35.1 ; Pain in right toe(s) M79.674 and Pain in left toe(s) M79.[address] [address] 10/05/2022 Trever Torres Atherosclerosis of [place] artery of both lower extremities, with unspecified presence of clinical manifestation I70.203 ; Tinea unguium B35.1 ; Pain in right toe(s) M79.674 and Pain in left toe(s) M79.[address] [address] 12/14/2022 Trever Torres Atherosclerosis of [place] artery of both lower extremities, with unspecified presence of clinical manifestation I70.203 ; Tinea unguium B35.1 ; Pain in right toe(s) M79.674 and Pain in left toe(s) M79.675 ASSESSMENTS Encounter Date Diagnosis Assessment Notes Treatment Notes Treatment Clinical Notes 02/25/2022 Tinea unguium (ICD-1 0 - B35.1) 02/25/2022 Atherosclerosis of [place] artery of both lower extremities, with unspecified presence of clinical manifestation (ICD-10 - I70.203) 05/10/2022 Tinea unguium (ICD-1 0 - B35.1) 05/10/2022 Atherosclerosis of [place] artery of both lower extremities, with unspecified presence of clinical manifestation (ICD-10 - I70.203) 07/28/2022 Tinea unguium (ICD-1 0 - B35.1) 07/28/2022 Atherosclerosis of [place] artery of both lower extremities, with unspecified presence of clinical manifestation (ICD-10 - I70.203) 10/05/2022 Tinea unguium (ICD-1 0 - B35.1) 10/05/2022 Atherosclerosis of [place] artery of both lower extremities, with unspecified presence of clinical manifestation (ICD-10 - I70.203) 12/14/2022 Tinea unguium (ICD-1 0 - B35.1) 12/14/2022 Atherosclerosis of [place] artery of both lower extremities, with unspecified [...] TREATMENT Pending Test Test Name Order Date 84871-GVQLYZP NAIL, 6 OR MORE 12/11/2020 16273-XXOVZGH NAIL, 6 OR MORE 03/05/2021 73450-WYDGPFH NAIL, 6 OR MORE 05/11/2021 64769-NGBRPWI NAIL, 6 OR MORE 07/20/2021 52710-XUJKTAQ NAIL, 6 OR MORE 10/01/2021 32692-RBWCROJ NAIL, 6 OR MORE 12/14/2021 12024-GBFEEOK NAIL, 6 OR MORE 02/25/2022 57300-FYBZXPL NAIL, 6 OR MORE 07/10/2020 98214-WRHTLFU NAIL, 6 OR MORE 09/29/2020 61028-ALLBKTQ NAIL, 6 OR MORE 05/10/2022 66115-YEQHZVQ NAIL, 6 OR MORE 07/28/2022 83630-KPCYYRB NAIL, 6 OR MORE 10/05/2022 02335-DFXTVFI NAIL, 6 OR MORE 12/14/2022 76679-LBAROEZ NAIL, 6 OR MORE 05/01/2020 79248-Xlgmlmys Plate 09/29/2020 06155 I&D ABSCESS- SIMPLE,SINGLE 022 12584-RMRU SKIN LESIONS, 2 TO 4 12/15/19 23 37576-OBYH SKIN LESIONS, 2 TO 4 05/10/20 22 84635-FVZZ SKIN LESIONS, 2 TO 4 10/06/19 23 70870-SYRE SKIN LESIONS, 2 TO 4 07/29/19 23 69902-CKRA SKIN LESIONS, 2 TO 4 02/26/20 22 Next Appt Details Provider Name:Trever Hawk Torres , 02/22/2023 10:30:00 AM, [address] [facility], [facility] [address], [place], [address], Insurance Providers Payer Name Payer Address Payer Phone Subscriber Number Group Number Insured Name Patient Relationship to Insured Coverage Start Date Coverage End Date Medicare National Govt Svcs Inc [address] [place] [address] [id number] Santiago Duncan Self - patient is the insured [employer] Blue Shield [address] [place] [address] [id number] Santiago Duncan Self - patient is the insured MEDICAL (GENERAL) HISTORY Medical History History ICD Code Gout Heart disease High blood pressure Polio Measles Mumps CAD Surgical History Surgery Date(Month/Year) Hospitalization History Reason Date(Month/Year) 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
--- NOTE | 2023-02-04 09:48 | ECG_ITS ---
Test Reason : SYNCOPE Blood Pressure : / mmHG Vent. Rate : 053 BPM Atrial Rate : 053 BPM P-R Int : 174 ms QRS Dur : 096 ms QT Int : 418 ms P-R-T Axes : 059 -15 -06 degrees QTc Int : 392 ms Sinus bradycardia Otherwise normal ECG When compared with ECG of 24-JAN-2023 07:16, No significant change was found Referred By: Lulu Brooks Electronically Signed By:RENARD MCLAUGHLIN
--- NOTE | 2023-02-04 09:55 | ED.DIZZY ---
HPI - Dizziness General Chief Complaint: Dizziness Stated Complaint: Dizziness/ bubble on the R ear Time Seen by Provider: 02/04/23 09:21 Source: patient, family (Son) and old records reviewed Mode of arrival: ambulatory Limitations: no limitations History of Present Illness HPI Narrative: 87-year-old male came in with his son for 5 days history of dizziness patient described it as room spinning and also lightheadedness. Patient had a history of syncopal episodes, had outside ui developer with [employer] with previous unremarkable workup for syncope, patient had a prior hospitalization and ui developer with [employer] clearance in the past for similar symptoms found no underlying cause of patient's symptoms, patient also had 30 days cardiac monitoring which was unremarkable for dysrhythmia, patient decline CP or SOB, no rectal bleeding, no weakness, no numbness, no headache. Patient has been feeling popping sensation in the right ear but no pain, patient also was started by urologist on alfuzosin for the prostate a week ago. No fever, no chills. Related Data Home Medications Medication Instructions Recorded Confirmed hydrochlorothiazide 12.5 mg tablet 12.5 mg PO DAILY 05/27/20 11/07/22 aspirin 81 mg chewable tablet 81 mg PO DAILY 09/26/21 11/07/22 Previous Rx's Medication Instructions Recorded tamsulosin 0.4 mg capsule 0.4 mg PO BEDTIME 90 days #90 caps 04/28/22 allopurinol 300 mg tablet 300 mg PO DAILY #90 tabs 05/16/22 lisinopril 40 mg tablet 40 mg PO DAILY #90 tabs 09/02/22 metoprolol succinate 25 mg 25 mg PO DAILY #90 tabs 11/14/22 tablet,extended release 24 hr atorvastatin 40 mg tablet 40 mg PO DAILY #90 tabs 01/09/23 alfuzosin 10 mg tablet,extended 10 mg PO BEDTIME 30 days #30 tabs 01/30/23 release 24 hr Allergies Allergy/AdvReac Type Severity Reaction Status Date / Time hydrochlorothiazide Allergy Unknown Unknown Verified 02/04/23 08:20 [From Dyazide] triamterene [From Dyazide] Allergy Unknown Unknown Verified 02/04/23 08:20 Review of Systems Review of Systems: All other systems are reviewed and are negative Constitutional: Reports as per HPI and Reports no additional constitutional complaints Eyes: Reports as per HPI and Reports no additional eye complaints Reports system reviewed and no additional complaints, except as documented Cardiovascular: Reports as per HPI and Reports no additional cardiovascular complaints Respiratory: Reports as per HPI and Reports no additional respiratory complaints Gastrointestinal: Reports as per HPI and Reports no additional gastrointestinal complaints Genitourinary: Reports no additional female genitourinary complaints Musculoskeletal: Reports no additional musculoskeletal complaints Skin/Breast: Reports system reviewed and no additional complaints, except as docu Psychiatric: Reports no additional psychiatric complaints Endocrine: Reports no additional endocrine complaints Hematologic/Lymphatic: Reports no additional hematologic/lymphatic complaints Allergic/Immunologic: Reports no additional allergic/immunologic complaints Reports system reviewed and no additional complaints, except as documented and Reports Abnormal speech present [facility] Past Medical History Medical History CAD (coronary artery disease) Polio Anemia BPH w urinary obs/LUTS HTN (hypertension) Surgical History History of biopsy Family History Family History Father Lung cancer Mother No problems noted. Son In good health Social History Social History Household Members: Spouse Housing: House Are you a primary personal care service provider to a significant other at home: No Do you presently have visiting nurse or other home services: No Alcohol intake: current Alcohol intake frequency: a few times a week Alcohol type: wine Patient Tobacco Use Status: Former Tobacco user Tobacco use type: Cigarette Cigarettes Per Day: 20 e-Cigarette/Vaping Use: Never Used Second Hand Smoke Exposure: No Advance Directives: No Advance Directives Information Provided: Yes service: Yes Current occupational status: retired Cognitive needs: Yes Hearing needs: No Vision needs: No Physical Exam Vital Signs: Vital Signs: Last Vital Signs Temp 98 F 02/04/23 08:20 Pulse 58 02/04/23 12:22 Resp 14 02/04/23 12:22 BP 165/55 H 02/04/23 12:22 Pulse Ox 97 02/04/23 12:22 O2 Del Method Room Air 02/04/23 12:22 BMI result Body Mass Index 22.4 Vital signs have been reviewed and appear to be correct. Blood pressure elevated. Heart rate normal. Respiratory rate normal. Temperature normal. Oxygen saturation normal. Appearance: Alert. Oriented X3. No acute distress. Head: Normal external exam. Normocephalic. Atraumatic. No Reynoso signs noted. No raccoon eyes noted Eyes: PERRLA. EOMI. Conjunctiva and sclera normal. Eyelids normal. ENT: TM's Normal. Pharynx normal. Uvula midline. Moist mucous membranes. Right auditory canal blockage by cerumen. Neck: Normal inspection. Neck supple. FROM. No adenopathy. Thyroid Normal. No meningeal signs. No neck mass noted. CVS: Normal heart rate and rhythm. Heart sound normal. No murmurs noted. Pulses normal throughout. Respiratory: No respiratory distress. Painless inspiration. Breath sounds normal. No wheezes/rales/rhonchi noted. Chest nontender. No accessory muscle usage noted or decreased air movement noted. Abdomen: Soft and nontender. Bowel sounds normal in all 4 quadrants. No distention noted. No organomegaly noted. No visible injury noted. Back: No CVA tenderness. Full range of motion noted. Skin: Skin warm and dry. Normal skin color. Normal skin turgor. No rashes/lesions/lacerations noted. Extremities: No lower extremity edema. Extremities exhibit normal range of motion. Extremities nontender. Neuro: Oriented X 3. Cranial nerve exam: II-XII are grossly intact No motor deficit. No sensory deficit. Reflexes normal. Course Course Course Narrative: 87-year-old male been having syncopal/near syncope episodes, patient had a thorough cardiac workup by PCP and his out of the hospital ui developer with [employer], patient has been admitted with unremarkable workup for his syncopal episode, today patient show a chronic mild hyponatremia today's sodium is 124, patient is not orthostatic but that does not entirely rule out dehydration since the weather has been extremely hot in the past week. Will check urine electrolytes, serum osmolality, will start the patient on normal saline at 100 cc/hour for 1 L and do a serial sodium values. S/p right ear irrigation and cerumen impaction. Medications Administered Discontinued Medications Generic Name Dose Route Start Last Admin Trade Name Freq PRN Reason Stop Dose Admin Sodium Chloride 1,000 mls @ 999 mls/hr 02/04/23 09:48 02/04/23 12:20 Ns IV 02/04/23 10:48 Infused .Q1H1M ONE Infusion Medical Decision Making Differential Diagnosis Differential Diagnoses: The differential diagnosis associated with the presentation includes (ACS, dehydration, electrolyte abnormality, orthostatic hypotension, severe anemia, drug-related hyponatremia, UTI, otitis media, cerumen impaction.) Admission/Observation Consideration of admission/observation: Escalation of care including admission/observation considered Consult Healthcare Provider Management of the patient was discussed with: Hospitalist (Dr. Brice) Lab Data MDM Lab Attestation statement: I reviewed the patient's lab results. 02/04/23 10:25 02/04/23 10:25 Labs: Lab Results 02/04/23 Range/Units 10:25 WBC 3.2 L (4.8-10.8) X10*3/uL RBC 3.65 L (4.60-5.80) X10*6/uL Hgb 12.4 L (14.0-18.0) g/dl Hct 34.3 L (42.0-52.0) % MCV 94.0 (80.0-98.0) fL MCH 34.0 H (27.0-33.0) pg MCHC 36.2 H (31.0-36.0) g/dl RDW 12.1 (11.0-16.0) % Plt Count 153 L (160-400) X10*3/uL MPV 9.1 L (9.4-12.4) fL Immature Gran % (Auto) 0.6 H (0.0-0.4) % Neut % (Auto) 67.2 (45-73) % Lymph % (Auto) 16.3 L (20-40) % [place] % (Auto) 14.7 H (2-11) % Eos % (Auto) 0.6 (0-4) % Baso % (Auto) 0.6 (0-2) % Lymph # (Auto) 0.5 L (1.2-4.9) X10*3/uL [place] # (Auto) 0.5 (0.1-1.2) X10*3/uL Eos # (Auto) 0.0 (0.0-0.4) X10*3/uL Baso # (Auto) 0.0 (0.0-0.2) X10*3/uL Abs Immat Gran (auto) 0.02 (0.00-0.03) X10*3/uL Absolute Neuts (auto) 2.2 (2.0-8.3) x10*3/uL Absolute Nucleated RBC 0.000 (0.0-0.012) X10*3/uL Nucleated RBC % (auto) 0.0 (0.0-0.2) /100WBC Sodium 124 L (135-145) mmol/L Potassium 4.6 (3.3-5.1) mmol/L Chloride 92 L (96-108) mmol/L Carbon Dioxide 27 (22-29) mmol/L Anion Gap 10 L (12-20) BUN 13 (9-16) mg/dL Creatinine 0.73 (0.5-1.4) mg/dL Estim Creat Clear Calc 68.0 Estimated GFR > 60 Random Glucose 102 (60-115) mg/dL Calcium 9.5 (8.4-10.2) mg/dL Total Bilirubin 1.2 H (0.0-1.0) mg/dL Direct Bilirubin 0.5 (0.0-0.5) mg/dL AST 19 (5-37) U/L ALT 13 (0-40) U/L Alkaline Phosphatase 81 (39-117) U/L Troponin I High Sens 4.2 (<3.5-35.0) ng/L B-Natriuretic Peptide 64 (<100) pg/mL Total Protein 6.8 (6.5-8.0) g/dL Albumin 4.2 (3.5-5.0) g/dL Lipase 34 (8-78) U/L Influenza Type A (PCR) NEGATIVE (Negative) Influenza Type B (PCR) NEGATIVE (Negative) RSV RNA Qual (PCR) NEGATIVE (Negative) SARS-CoV-2 RNA (RT-PCR) NEGATIVE (Negative) Independent Interpretation I performed an independent interpretation of an: EKG (Sinus bradycardia at 53 beats per minute, left axis deviation, normal intervals, no ST-T changes.) and Plain X-Ray (Chest: Unremarkable chest x-ray.) Radiology Impression Discussion of test interpretation with radiology: I have reviewed the radiologist's reading. Chronic Conditions Patient?s care impacted by: Other (Chronic hyponatremia) Procedures Ear Wax Removal Right Ear: Cerumenolytic Used: other (Normal saline) Results: Re-examined: cerumen removed completely TM Examination: TM(s) intact, normal appearance Ear Canal Exam: bleeding Noted Patient Tolerated Procedure: well Complications: no problems Technique: ear canal irrigated Discharge Plan Discharge Clinical Impression: Near syncope, Acute hyponatremia, Cerumen impaction Patient Disposition: Admitted As Inpatient
[2023-02-04 10:32] LABS: MANUAL DIFF FLAG NO
[2023-02-04 10:34] LABS: Basophils Percent Auto 0.6 % (0-2); Eosinophils Percent Auto 0.6 % (0-4); Hematocrit 34.3 % (42.0-52.0); Hemoglobin 12.4 g/dl (14.0-18.0); Imm Gran Abs Auto 0.02 X10*3/uL (0.00-0.03); Imm Gran Pct Auto 0.6 % (0.0-0.4); Lymphocytes Absolute Auto 0.5 X10*3/uL (1.2-4.9); Lymphocytes Percent Auto 16.3 % (20-40); Mean Corpuscular HGB Conc 36.2 g/dl (31.0-36.0); Mean Platelet Volume 9.1 fL (9.4-12.4); Monocytes Absolute Auto 0.5 X10*3/uL (0.1-1.2); Monocytes Percent Auto 14.7 % (2-11); Neutrophils Absolute Auto 2.2 x10*3/uL (2.0-8.3); Neutrophils Percent Auto 67.2 % (45-73); Platelet Count 153 X10*3/uL (160-400); Red Blood Count 3.65 X10*6/uL (4.60-5.80); Red Cell Distribution Width 12.1 % (11.0-16.0); White Blood Count 3.2 X10*3/uL (4.8-10.8)
[2023-02-04 10:57] LABS: Alanine Aminotransferase 13 U/L (0-40); Albumin Level 4.2 g/dL (3.5-5.0); Alkaline Phosphatase 81 U/L (39-117); Anion Gap 10 (12-20); Aspartate Amino Transferase 19 U/L (5-37); Bilirubin Direct 0.5 mg/dL (0.0-0.5); Bilirubin Total 1.2 mg/dL (0.0-1.0); Blood Urea Nitrogen 13 mg/dL (9-16); Calcium 9.5 mg/dL (8.4-10.2); Carbon Dioxide 27 mmol/L (22-29); Chloride 92 mmol/L (96-108); Estimated Glomerular Filt Rate > 60; Glucose Random 102 mg/dL (60-115); Lipase 34 U/L (8-78); Potassium 4.6 mmol/L (3.3-5.1); Sodium 124 mmol/L (135-145); Total Protein 6.8 g/dL (6.5-8.0)
[2023-02-04 11:02] LABS: B Type Natriuretic Peptide 64 pg/mL (<100)
[2023-02-04 11:04] LABS: Troponin-I High Sensitivity 4.2 ng/L (<3.5-35.0)
[2023-02-04 11:11] LABS: Influenza A PCR NEGATIVE (Negative); Influenza B PCR NEGATIVE (Negative); Resp Syncy Virus RNA Qual PCR NEGATIVE (Negative); SARS COV2 PCR INHOUSE NEGATIVE (Negative)
--- NOTE | 2023-02-04 11:11 | PC.NURSE ---
first fluid order started late d/t pt difficult stick.
[2023-02-04] MEDS: 0.9 % Sodium Chloride 1,000 ML 999 ML IV (11:12)
[2023-02-04] MEDS: 0.9 % Sodium Chloride 1,000 ML 100 ML IVCONT (12:31)
[2023-02-04 12:37] LABS: Appearance Urine Clear; Color Urine Yellow; Glucose Urine UA Negative (Negative); Leukocyte Esterase Urine Negative (Negative); Nitrite Urine Negative (Negative); PH 6.5 (5.0-9.0); Specific Gravity - Urine 1.015 (1.005-1.025); Urine Blood Negative (Negative); Urine Ketones Trace mg/dL (Negative); Urine Protein Negative (Neg-Trace)
[2023-02-04 12:46] LABS: Potassium Urine Random 36.6 mmol/L
--- NOTE | 2023-02-04 13:05 | PHA.MEDREC ---
Pharmacy Consult ? Medication Reconciliation Pharmacy has completed the medication reconciliation. Patient's granddaughter had med list on her phone.
--- NOTE | 2023-02-04 13:25 | P.HPHOSP_ITS ---
History of Present Illness Date of Service: 02/04/23 Attending physician on admission: Micheal Perez Chief Complaint: Dizziness, hyponatremia Pt is an 87-year-old male with a PMH significant for?HTN, HLD, BPH, CAD, and gout who presents to the ED with?ear fullness/pressure, dizziness, and lightheadedness for the past 11 days. Patient has had a past sporadic history of syncopal episodes. Was initially seen and evaluated here on 09/27/2021 for syncopal episode with associated nausea and vomiting. Patient had extensive workup here and with outpatient Cardiology in [place] including echocardiogram and 30 day Holter monitor. All cardiac workup has been unremarkable for a arrhythmias. Patient states he had another syncopal episode on December 19 of this year patient when he was eating outside on a hot day on . [place] nauseous and lightheaded and had a brief syncopal episode. Ten days prior on 01/24/2023 patient presented to the ED here for mechanical fall at home. Had some dizziness but no LOC. Pt presents today to the ED because of continued dizziness and worsening right ear pressure/fullness that he describes as a bubble in his ear. Says pressure initially relieved with swallowing but today was worse and swallowing offered no relief. Pt also notes he was recently started on alfuzosin [address] Green in urology. Patient states he is often more dizzy in the morning than at night. No clear precipitating or alleviating factors. Has not had any syncopal episodes since September, and denies any additional falls since the 06/05/20282022. Denies chest pain/pressure, palpitations. No shortness of breath. Denies fever, chills, nausea, vomiting, abdominal pain. In the ED patient was noted to have room and impaction in right ear. Ear was flushed in patient currently states he feels much better with resolution of ear fullness/pressure, and currently not experiencing any dizziness. In the ED patient was afebrile with 1 initial soft BP of 115/54, all other BP readings have been hypertensive as high as 165/55. Labs were significant for mild pancytopenia of WBC 3.2, H&H of 12.4/34.3, platelets 153, hyponatremia of 124 (lower than baseline of 130). Kidney function baseline. UA negative for UTI. Negative for COVID, influenza A and B. CXR showed no acute cardiopulmonary process. EKG demonstrated sinus bradycardia [address] elevations or depressions. Orthostatics negative. Pt was treated with IVF. Pt will be admitted to the hospital under observation on telemetry for further evaluation and close monitoring of dizziness, presyncope, and hyponatremia. Review of Systems 2 Review of Systems: Lightheadedness/dizziness x11 days Presyncope, no LOC Recent fall at home 10 days prior Right ear pressure/fullness Denies chest pain/pressure, palpitations No nausea, vomiting, diarrhea, fever, chills, abdominal pain No shortness of breath PMFSH Medical History CAD (coronary artery disease) Polio Anemia BPH w urinary obs/LUTS HTN (hypertension) Family History Father Lung cancer Mother No problems noted. Son In good health Surgical History History of biopsy Social History Household Members: Spouse Housing: House Are you a primary direct care supervisor to a significant other at home: No Do you presently have visiting nurse or other home services: No Alcohol intake: current Alcohol intake frequency: holidays/special occasions only Alcohol type: wine Patient Tobacco Use Status: Former Tobacco user Tobacco use type: Cigarette Cigarettes Per Day: 20 Smoked in Last 30 Days: No e-Cigarette/Vaping Use: Never Used Second Hand Smoke Exposure: No Use of substances other than those prescribed or required for medical reasons: No Advance Directives: No Advance Directives Information Provided: Yes service: Yes Current occupational status: retired Cognitive needs: Yes Hearing needs: No Vision needs: No Meds Allergies Allergy/AdvReac Type Severity Reaction Status Date / Time hydrochlorothiazide Allergy Unknown Unknown Verified 02/04/23 08:20 [From Dyazide] triamterene [From Dyazide] Allergy Unknown Unknown Verified 02/04/23 08:20 Active Medications: Current Medications Sodium Chloride (Ns) 1,000 mls @ 100 mls/hr IVCONT .Q10H ONE Stop: 02/04/23 21:04 Last Admin: 02/04/23 12:31 Dose: 100 mls/hr Home Medications Medication Instructions Recorded Confirmed Last Taken Type hydrochlorothiazide 12.5 mg tablet 12.5 mg PO DAILY 05/27/20 02/04/23 02/03/23 History aspirin 81 mg chewable tablet 81 mg PO DAILY 09/26/21 02/04/23 02/03/23 History Physical Exam 2 Vital Signs and Narrative: Vital Signs: Last Vital Signs Temp 98 F 02/04/23 08:20 Pulse 58 02/04/23 12:22 Resp 14 02/04/23 12:22 BP 165/55 H 02/04/23 12:22 Pulse Ox 97 02/04/23 12:22 O2 Del Method Room Air 02/04/23 12:22 BMI result Body Mass Index 22.4 General: AOx3, no acute distress Resp: CTA bilaterally CVS: S1, S2, regular rhythm, slow GI: +BS, NT, no distention Skin: No rash Neuro: Cranial nerves II-XII grossly intact bilaterally. Motor grossly intact bilaterally Extremities: No edema Psych: Appropriate affect Results Labs 02/05/23 06:07 02/05/23 06:07 Labs: Laboratory Results - last 24 hr 02/04/23 02/04/23 10:25 12:21 MCV 94.0 MCH 34.0 H MCHC 36.2 H RDW 12.1 Plt Count 153 L MPV 9.1 L Immature Gran % (Auto) 0.6 H Neut % (Auto) 67.2 Lymph % (Auto) 16.3 L [place] % (Auto) 14.7 H Eos % (Auto) 0.6 Baso % (Auto) 0.6 Lymph # (Auto) 0.5 L [place] # (Auto) 0.5 Eos # (Auto) 0.0 Baso # (Auto) 0.0 Abs Immat Gran (auto) 0.02 Absolute Neuts (auto) 2.2 Absolute Nucleated RBC 0.000 Nucleated RBC % (auto) 0.0 Anion Gap 10 L Estim Creat Clear Calc 68.0 Estimated GFR > 60 Random Glucose 102 Calcium 9.5 Total Bilirubin 1.2 H Direct Bilirubin 0.5 AST 19 ALT 13 Alkaline Phosphatase 81 B-Natriuretic Peptide 64 Total Protein 6.8 Albumin 4.2 Lipase 34 Urine Color Yellow Urine Appearance Clear Urine pH 6.5 Ur Specific [place] 1.015 Urine Protein Negative Urine Glucose (UA) Negative Urine Ketones Trace Urine Blood Negative Urine Nitrite Negative Ur Leukocyte Esterase Negative Ur Random Sodium 63.0 Ur Random Potassium 36.6 Ur Random Chloride 66.0 Influenza Type A (PCR) NEGATIVE Influenza Type B (PCR) NEGATIVE RSV RNA Qual (PCR) NEGATIVE SARS-CoV-2 RNA (RT-PCR) NEGATIVE Imaging Radiologist's Impressions: Impressions Chest X-Ray 02/04/23 10:59 IMPRESSION: Unremarkable chest examination. Assessment and Plan (1) Cerumen impaction: Status: Acute (2) Acute hyponatremia: Status: Acute (3) Near syncope: Status: Acute Plan Pt is an 87-year-old male with a PMH significant for?HTN, HLD, BPH, CAD, and gout who presents to the ED with?ear fullness/pressure, dizziness, and lightheadedness for the past 11 days. Pt was treated with IVF. Pt will be admitted to the hospital under observation on telemetry for further evaluation and close monitoring of dizziness, presyncope, and hyponatremia. Dizziness/presyncope Patient with acute dizziness and presyncope x11 days Patient with 2 prior syncopal episodes: 09/27/2021 and 12/19/2022 Extensive cardiac workup including echocardiogram and 30 day cardiac monitoring has been unremarkable Etiology unclear: Cerumen impaction versus cardiac versus vasovagal Orthostatics negative Patient receiving IVF in ED Monitor on telemetry Hyponatremia Sodium 124, lower than baseline of 130 Chronic hyponatremia etiology unclear: Possibly secondary to hydrochlorothiazide use Patient recently started on alfuzosin 5 days prior Pt received IVF in ED Will hold alfuzosin, hydrochlorothiazide Will get the urine osmolality, serum osmolality CAD Continue aspirin, statin HTN Continue lisinopril, metoprolol Hold hydrochlorothiazide Full Code Attending:?Dr. Perez DVT Prophylaxis: Lovenox Patient admitted to the hospital under observation on telemetry for further evaluation and close monitoring of dizziness and presyncope. Time Spent With Patient Time: Total time managing care of this patient today ____ minutes. Quality Stroke Does the patient have a stroke diagnosis?: No VTE Prior VTE?: No VTE Risk Level:: Medical - moderate - high VTE Device Contraindication: Treatment Not Indicated VTE Drug Contraindication: N/A - Med Ordered
--- NOTE | 2023-02-04 13:47 | PC.NURSE ---
pt resting comfortably on stretcher at this time, offers no complaints to this RN. 22g in LW present with NS running at 100ml/hr. Respirations even and unlabored, skin pwd, alert and oriented x4
[2023-02-04 15:36] LABS: Osmolality Urine 452 mosm/kg (373-1093)
[2023-02-04 15:38] LABS: Sodium 125 mmol/L (135-145)
[2023-02-04 16:16] LABS: Anion Gap 10 (12-20)
[2023-02-04 16:19] LABS: Blood Urea Nitrogen 10 mg/dL (9-16); Carbon Dioxide 23 mmol/L (22-29); Chloride 96 mmol/L (96-108); Creatinine Clr Calc Pharmacy 76.3; Estimated Glomerular Filt Rate > 60; Glucose Random 111 mg/dL (60-115)
[2023-02-04] MEDS: Atorvastatin Calcium 40 MG TABLET PO (16:25)
[2023-02-04] MEDS: lisinopriL 40 MG TABLET PO (16:25)
[2023-02-04] MEDS: allopurinoL 300 MG TABLET PO (16:25)
[2023-02-04] MEDS: Aspirin 81 MG TAB.CHEW PO (16:25)
[2023-02-04] MEDS: Metoprolol Succinate ER 25 MG TAB.ER.24H PO (16:25)
[2023-02-04] MEDS: Enoxaparin Sodium 40 MG/0.4 ML SYRINGE SUBCUT (16:26)
[2023-02-04] MEDS: 0.9 % Sodium Chloride Flush 3 ML SYRINGE IVFLUSH (16:26)
[2023-02-04] MEDS: Urea 15 GM POWDER 30 GM PO (17:00)
[2023-02-05] MEDS: 0.9 % Sodium Chloride Flush 3 ML SYRINGE IVFLUSH ×4 (00:06→19:56)
[2023-02-05 03:35] VITALS: BP 150/60; PULSE 60; RESP 18; TEMP 36.4; O2SAT 96
[2023-02-05 06:32] LABS: Hematocrit 35.8 % (42.0-52.0); Hemoglobin 12.7 g/dl (14.0-18.0); Mean Corpuscular HGB Conc 35.5 g/dl (31.0-36.0); Mean Corpuscular Volume 95.7 fL (80.0-98.0); Mean Platelet Volume 9.5 fL (9.4-12.4); Platelet Count 152 X10*3/uL (160-400); Red Blood Count 3.74 X10*6/uL (4.60-5.80); White Blood Count 3.2 X10*3/uL (4.8-10.8)
[2023-02-05 06:44] LABS: Anion Gap 8 (12-20); Blood Urea Nitrogen 21 mg/dL (9-16); Calcium 9.8 mg/dL (8.4-10.2); Carbon Dioxide 27 mmol/L (22-29); Chloride 97 mmol/L (96-108); Creatinine Clr Calc Pharmacy 70.9; Estimated Glomerular Filt Rate > 60; Glucose Random 93 mg/dL (60-115); Potassium 4.4 mmol/L (3.3-5.1); Sodium 128 mmol/L (135-145)
[2023-02-05 07:50] VITALS: BP 168/63; PULSE 54; RESP 18; TEMP 36.8; O2SAT 98
[2023-02-05] MEDS: Aspirin 81 MG TAB.CHEW PO (08:14)
[2023-02-05] MEDS: Atorvastatin Calcium 40 MG TABLET PO (08:15)
[2023-02-05] MEDS: lisinopriL 40 MG TABLET PO (08:15)
[2023-02-05] MEDS: allopurinoL 300 MG TABLET PO (08:15)
[2023-02-05] MEDS: Metoprolol Succinate ER 25 MG TAB.ER.24H PO (08:15)
[2023-02-05] MEDS: amLODIPine Besylate 5 MG TABLET PO (10:15)
[2023-02-05] MEDS: Urea 15 GM POWDER 30 GM PO (10:15)
--- NOTE | 2023-02-05 11:11 | MHC.CM.PN ---
Lives at home w/. No prior services, no prior equipment, still drives, PCP accurate. D/C plan is home via family transport; PT eval Monday for ? of walker for in-home use. CM to follow.
[2023-02-05 11:27] VITALS: BP 152/58; PULSE 57; RESP 18; TEMP 36.9; O2SAT 99
--- NOTE | 2023-02-05 15:56 | HO.PM.IMPN ---
Subjective Subjective Date of Service: 02/05/23 Interval History: Reports feeling better since admission but still having dizziness episodes with movement No fever, hcills or headache Na improved No events on Tele Review of Systems Review of Systems: Yes all other systems are reviewed and are negative Physical Exam Vital Signs: Vital Signs: Last Vital Signs Temp 98.4 F 02/05/23 11:27 Pulse 57 02/05/23 11:27 Resp 18 02/05/23 11:27 BP 152/58 H 02/05/23 11:27 Pulse Ox 99 02/05/23 11:27 O2 Del Method Room Air 02/05/23 11:27 BMI result Body Mass Index 22.4 Const: Other: Constitutional : Awake, interactive, not in distress Neck : Normal inspection, Supple Cardiovascular : RRR, no JVP, no lower extremity edema Respiratory : good bilateral air entry, no crackles, wheezes or rhonchi Gastrointestinal: soft, lax, Normal bowel sounds, Non tender Skin : Warm, Dry Neurological : Alert & oriented x3, No focal deficit Objective Data Active Medications Acetaminophen (Acetaminophen 325 Mg Tablet) 650 mg PO Q6H PRN PRN Reason: Pain, Mild (Pain Scale 1-3) Allopurinol (Allopurinol 300 Mg Tablet) 300 mg PO DAILY [facility] Last Admin: 02/05/23 08:15 Dose: 300 mg Documented By: GOSIA Amlodipine Besylate (Amlodipine Besylate 5 Mg Tablet) 5 mg PO DAILY [facility]; Protocol Last Admin: 02/05/23 10:15 Dose: 5 mg Documented By: GOSIA Aspirin (Aspirin 81 Mg Tab.Chew) 81 mg PO DAILY [facility] Last Admin: 02/05/23 08:14 Dose: 81 mg Documented By: GOSIA Atorvastatin Calcium (Atorvastatin Calcium 40 Mg Tablet) 40 mg PO DAILY [facility] Last Admin: 02/05/23 08:15 Dose: 40 mg Documented By: GOSIA Docusate Sodium (Docusate Sodium 100 Mg Capsule) 100 mg PO DAILY PRN PRN Reason: Constipation Enoxaparin Sodium (Enoxaparin Sodium 40 Mg/0.4 Ml Syringe) 40 mg SUBCUT Q24H [facility] Last Admin: 02/04/23 16:26 Dose: 40 mg Documented By: SHAYAN Lisinopril (Lisinopril 40 Mg Tablet) 40 mg PO DAILY [facility]; Protocol Last Admin: 02/05/23 08:15 Dose: 40 mg Documented By: GOSIA Metoprolol Succinate (Metoprolol Succinate Er 25 Mg Tab.Er.24h) 25 mg PO DAILY [facility]; Protocol Last Admin: 02/05/23 08:15 Dose: 25 mg Documented By: GOSIA Ondansetron HCl (Ondansetron Hcl 4 Mg/2 Ml Vial) 4 mg IVPUSH Q8H PRN PRN Reason: Nausea and Vomiting Sodium Chloride (0.9 % Sodium Chloride Flush 3 Ml Syringe) 3 ml IVFLUSH QSHIFT BETZY Last Admin: 02/05/23 08:14 Dose: 3 ml Documented By: GOSIA Labs 02/05/23 06:07 02/05/23 06:07 Labs: Laboratory Results - last 24 hr 02/04/23 02/05/23 15:19 06:07 MCV 95.7 MCH 34.0 H MCHC 35.5 RDW 12.0 Plt Count 152 L MPV 9.5 Absolute Nucleated RBC 0.000 Nucleated RBC % (auto) 0.0 Anion Gap 10 L 8 L Estim Creat Clear Calc 76.3 70.9 Estimated GFR > 60 > 60 Random Glucose 111 93 Calcium 9.0 9.8 D Assessment and Plan (1) Cerumen impaction: Status: Acute (2) Acute hyponatremia: Status: Acute (3) Dizziness: Status: Acute Plan Pt is an 87-year-old male with a PMH significant for?HTN, HLD, BPH, CAD, and gout who presents to the ED with?ear fullness/pressure, dizziness, and lightheadedness for the past 11 days. Pt was treated with IVF. Pt will be admitted to the hospital under observation on telemetry for further evaluation and close monitoring of dizziness, presyncope, and hyponatremia. 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 Quality Stroke Does the patient have a stroke diagnosis?: No VTE Prior VTE?: No VTE Risk Level:: Medical - moderate - high VTE Device Contraindication: Treatment Not Indicated VTE Drug Contraindication: N/A - Med Ordered
[2023-02-05 15:58] VITALS: BP 146/69; PULSE 58; RESP 12; TEMP 36.9; O2SAT 97
[2023-02-05] MEDS: Enoxaparin Sodium 40 MG/0.4 ML SYRINGE SUBCUT (16:23)
[2023-02-05 20:00] VITALS: BP 160/72; PULSE 92; RESP 18; TEMP 36.7; O2SAT 96
[2023-02-05 23:40] VITALS: BP 182/83; PULSE 69; RESP 20; TEMP 36.2; O2SAT 96
--- NOTE | 2023-02-06 00:33 | PC.NURSE ---
BP 182/83 , Dr Driver made aware, no new orders.
[2023-02-06 03:10] VITALS: BP 168/74; PULSE 66; RESP 20; TEMP 36.3; O2SAT 98
[2023-02-06 07:06] LABS: Anion Gap 9 (12-20); Blood Urea Nitrogen 20 mg/dL (9-16); Calcium 9.6 mg/dL (8.4-10.2); Carbon Dioxide 28 mmol/L (22-29); Chloride 99 mmol/L (96-108); Creatinine Clr Calc Pharmacy 69.9; Estimated Glomerular Filt Rate > 60; Glucose Random 97 mg/dL (60-115); Potassium 5.2 mmol/L (3.3-5.1); Sodium 131 mmol/L (135-145)
[2023-02-06 07:12] VITALS: BP 198/74; PULSE 71; RESP 13; TEMP 36.3; O2SAT 97
[2023-02-06] MEDS: lisinopriL 40 MG TABLET PO (08:11)
[2023-02-06] MEDS: Metoprolol Succinate ER 25 MG TAB.ER.24H PO (08:11)
[2023-02-06] MEDS: 0.9 % Sodium Chloride Flush 3 ML SYRINGE IVFLUSH (08:11)
[2023-02-06] MEDS: Aspirin 81 MG TAB.CHEW PO (08:11)
[2023-02-06] MEDS: allopurinoL 300 MG TABLET PO (08:11)
[2023-02-06] MEDS: amLODIPine Besylate 5 MG TABLET PO (08:11)
[2023-02-06] MEDS: Atorvastatin Calcium 40 MG TABLET PO (08:12)
[2023-02-06] MEDS: Sodium Zirconium Cyclosilicate 5 GM POWD.PACK PO (09:51)
[2023-02-06 12:02] VITALS: BP 172/69
--- NOTE | 2023-02-06 12:02 | MHC.CM.PN ---
IMM given 02/06.
[2023-02-06 12:38] VITALS: BP 156/67; PULSE 72; RESP 15; TEMP 36.8; O2SAT 96
[2023-02-06 13:54] LABS: Anion Gap 10 (12-20); Blood Urea Nitrogen 18 mg/dL (9-16); Calcium 9.6 mg/dL (8.4-10.2); Carbon Dioxide 27 mmol/L (22-29); Chloride 97 mmol/L (96-108); Creatinine Clr Calc Pharmacy 75.2; Estimated Glomerular Filt Rate > 60; Glucose Random 141 mg/dL (60-115); Potassium 4.3 mmol/L (3.3-5.1); Sodium 130 mmol/L (135-145)
--- NOTE | 2023-02-06 14:15 | P.DS_ITS ---
DS: Providers Provider Date of Service: 02/06/23 Date of admission: 02/05/23 15:27 Primary care physician: Garrison Brice PA-C DS: Diagnosis Discharge Diagnosis (1) Cerumen impaction: Status: Acute (2) Acute hyponatremia: Status: Acute (3) Dizziness: Status: Acute (4) BPPV (benign paroxysmal positional vertigo): Status: Acute DS: Summary Hospital Course Hospital Course: Admission note HPI Pt is an 87-year-old male with a PMH significant for?HTN, HLD, BPH, CAD, and gout who presents to the ED with?ear fullness/pressure, dizziness, and lightheadedness for the past 11 days. Patient has had a past sporadic history of syncopal episodes. Was initially seen and evaluated here on 09/27/2021 for syncopal episode with associated nausea and vomiting. Patient had extensive workup here and with outpatient Cardiology in [place] including echocardiogram and 30 day Holter monitor. All cardiac workup has been unremarkable for a arrhythmias. Patient states he had another syncopal episode on December 19 of this year patient when he was eating outside on a hot day on [facility]. [place] nauseous and lightheaded and had a brief syncopal episode. Ten days prior on 01/24/2023 patient presented to the ED here for mechanical fall at home. Had some dizziness but no LOC. Pt presents today to the ED because of continued dizziness and worsening right ear pressure/fullness that he describes as a bubble in his ear. Says pressure initially relieved with swallowing but today was worse and swallowing offered no relief. Pt also notes he was recently started on alfuzosin [address] Green in urology. Patient states he is often more dizzy in the morning than at night. No clear precipitating or alleviating factors. Has not had any syncopal episodes since September, and denies any additional falls since the 06/05/20282022. Denies chest pain/pressure, palpitations. No shortness of breath. Denies fever, chills, nausea, vomiting, abdominal pain. In the ED patient was noted to have room and impaction in right ear. Ear was flushed in patient currently states he feels much better with resolution of ear fullness/pressure, and currently not experiencing any dizziness. In the ED patient was afebrile with 1 initial soft BP of 115/54, all other BP readings have been hypertensive as high as 165/55. Labs were significant for mild pancytopenia of WBC 3.2, H&H of 12.4/34.3, platelets 153, hyponatremia of 124 (lower than baseline of 130). Kidney function baseline. UA negative for UTI. Negative for COVID, influenza A and B. CXR showed no acute cardiopulmonary process. EKG demonstrated sinus bradycardia [address] elevations or depressions. Orthostatics negative. Pt was treated with IVF. Pt will be admitted to the hospital under observation on telemetry for further evaluation and close monitoring of dizziness, presyncope, and hyponatremia. Hospital course Admitted for evidence of dizziness and near falls. found to have Cerumen impaction which was cleaned in ED. Orthostatics negative. Telemetry negative for any abnormal rhythm. Evaluated by PT and developed dizziness during the sessions consistent with BPPV that was treated by the PT team who recommended home services and follow up as outpatient in PT for vertigo sessions. Noticed to have Acute on chronic Hyponatremia with sodium of 124 on admission. Improved to 130 at time of discharge which is his baseline for many years now. 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 Hydrochlorothiazide discontinued. Started on Amlodipine for blood pressure control. To be followed by PCP for further adjustments of his medications. Hyperkalemia treated with Lokelma with good response. Discontinue Hydrochlorothiazide Start Amlodipine 5 mg daily Monitor fluids intake Meclizine as needed for dizziness Repeat blood work next week Recort blood pressure readings at home for the next week and report to PCP for further adjustment of your medications Follow with PCP for a referral to physical therapy Time Spent with Patient Time attestation: Total time managing care of this patient today ____ minutes. Discharge coordination time: Greater than 30 minutes Quality: Safe Use of Opioids Does Pt have an Active Cancer Diagnosis on the Problem List?: No Quality: Stroke Does the patient have a stroke diagnosis?: No Physical Exam Vital Signs: Vital Signs: Last Vital Signs Temp 98.3 F 02/06/23 12:38 Pulse 72 02/06/23 12:38 Resp 15 02/06/23 12:38 BP 156/67 H 02/06/23 12:38 Pulse Ox 96 02/06/23 12:38 O2 Del Method Room Air 02/06/23 12:38 BMI result Body Mass Index 22.4 Const: Other: Constitutional : Awake, interactive, not in distress Neck : Normal inspection, Supple Cardiovascular : RRR, no JVP, no lower extremity edema Respiratory : good bilateral air entry, no crackles, wheezes or rhonchi Gastrointestinal: soft, lax, Normal bowel sounds, Non tender Skin : Warm, Dry Neurological : Alert & oriented x3, No focal deficit DS: Data Data Completed and Pending Labs on day of discharge: Laboratory Results - last 24 hr 02/06/23 02/06/23 06:23 13:05 Sodium 131 L 130 L Potassium 5.2 H 4.3 Chloride 99 97 Carbon Dioxide 28 27 Anion Gap 9 L 10 L BUN 20 H 18 H Creatinine 0.71 0.66 Estim Creat Clear Calc 69.9 75.2 Estimated GFR > 60 > 60 Random Glucose 97 141 H Calcium 9.6 9.6 Imaging Chest x-ray: Radiologist's impression: ITS Impressions Chest X-Ray 02/04/23 10:59 IMPRESSION: Unremarkable chest examination. Discharge Plan Discharge Anticipated Discharge Date/Time: 02/06/23 12:47 Patient Disposition: Home Health Service Discharge Diagnosis: Dizziness: BPV Low sodium Referrals: Garrison Brice PA-C [Primary Care Provider] - 1 Week Discharge Medications: New amlodipine 5 mg Tablet 5 mg PO DAILY Qty: 30 0RF Protocol: Hold for SBP< HOLD for SBP < : 90 meclizine 25 mg Tablet 25 mg PO Q6H PRN (Reason: Dizziness) Qty: 30 0RF Continued allopurinol 300 mg tablet 300 mg PO DAILY Qty: 90 2RF lisinopril 40 mg tablet 40 mg PO DAILY Qty: 90 2RF metoprolol succinate 25 mg tablet extended release 24 hr 25 mg PO DAILY Qty: 90 1RF atorvastatin 40 mg tablet 40 mg PO DAILY Qty: 90 2RF alfuzosin 10 mg tablet extended release 24 hr 10 mg PO BEDTIME 30 Days Qty: 30 1RF Rx Instructions: Take before bedtime aspirin 81 mg Tablet,Chewable 81 mg PO DAILY Discontinued hydrochlorothiazide 12.5 mg tablet 12.5 mg PO DAILY Discharge Orders: Discharge Order (Routine); Ordered 02/06/23 Ordered By: Micheal Perez Diet: Advance to usual diet Activity on Discharge: As tolerated Stand Alone Forms: Patient Portal Discharge page Care Plan Goals: Read below Health Concerns: Read below Plan of Treatment: Read below Assessment: You were evaluated for dizziness and weakness. Found to have low sodium levels likely associated with increase water intake and usage of hydrochlorothiazide. treated with water restriction and urea with good response back to your baseline. Dizziness was related to Benign positional vertigo (BPV) which was evaluated and treated by physical therapist. you will need to continue PT at home and to follow as outpatient for the vertigo therapy classes. Discontinue Hydrochlorothiazide Start Amlodipine 5 mg daily Monitor fluids intake Meclizine as needed for dizziness Repeat blood work next week Recort blood pressure readings at home for the next week and report to PCP for further adjustment of your medications Follow with PCP for a referral to physical therapy Patient Instructions: Benign Paroxysmal Positional Vertigo (DC)
[2023-02-06 14:37] VITALS: BP 153/70; PULSE 62; RESP 13; TEMP 37.2; O2SAT 96
--- NOTE | 2023-02-06 14:40 | MHC.CM.PN ---
Pt medically cleared for D/C home self-care, pts son to transport him home.
== END 2023-02-06 16:00 | disposition home or self-care (01) | DRG 645 ==
LOC: HO.ED 11:28 → HO.EDOVER 15:11 → HO.IMC 16:30
PROVIDERS: Admitting Provider Student in an Organized Health Care Education/Training Program; Emergency Provider Emergency Medicine; PCP Physician Assistant; Visit Provider Student in an Organized Health Care Education/Training Program
DX: E22.2 Syndrome of inappropriate secretion of antidiuretic hormone (principal); H61.21 Impacted cerumen, right ear; I10 Essential (primary) hypertension; I25.10 Atherosclerotic heart disease of native coronary artery without angina pectoris; T50.2X5A Adverse effect of carbonic-anhydrase inhibitors, benzothiadiazides and other diuretics, initial encounter; Z20.822 Contact with and (suspected) exposure to COVID-19; Z87.891 Personal history of nicotine dependence; Z79.82 Long term (current) use of aspirin; Z79.899 Other long term (current) drug therapy
CPT/HCPCS: 0241U; 36415; 71045; 80048; 80076; 81003; 82436; 83690; 83880; 83935; 84133; 84295; 84300; 84484; 85025; 85027; 93005; 97162; 99222; 99285; J1650

== ENCOUNTER → 2023-02-05 15:27 | Outpatient (BNV) | payer MEDICARE, SELFPAY | PROVIDERS: Admitting Provider Student in an Organized Health Care Education/Training Program; Emergency Provider Emergency Medicine; PCP Physician Assistant; Visit Provider Student in an Organized Health Care Education/Training Program | DX: H61.21 Impacted cerumen, right ear (principal); E87.1 Hypo-osmolality and hyponatremia; H81.10 Benign paroxysmal vertigo, unspecified ear | CPT/HCPCS: 99222; 99232; 99239 ==

== ENCOUNTER 2023-02-23 14:06 | Outpatient (AMB) | payer MEDICARE, SELFPAY ==
--- NOTE | 2023-02-23 14:07 | A.OFFPC_ITS ---
Vital Signs 02/23/23 14:08 Height 5 ft 3 in Weight 145 lb 6 oz BMI 25.7 BP 120/56 L Blood Pressure Location Lt brachial Position Sitting Respiration 16 Pulse 65 Pulse Source Pulse Oximeter Pulse Oximetry (%) 95 Oxygen Delivery Method Room Air Intake Visit Reasons: [facility] 01/24/23 Intake Note: Patient is here to follow-up after a visit the emergency department at [facility] on 01/24/23 for vertigo and cerumen impaction. Ears are better after ear irrigation. Pt did follow up with cardiology in regards his near syncope/ pt is checking blood pressures between 6-8pm after dinner for any low BP numbers order by business records manager. Dependency Counselor Required: No Accompanied by: Son Allergies hydrochlorothiazide [From Dyazide] Allergy (Unknown, Verified 02/23/23 14:35) Unknown triamterene [From Dyazide] Allergy (Unknown, Verified 02/23/23 14:35) Unknown Medication List - Last Reconciled 02/23/23 by Garrison Brice PA-C alfuzosin ER 10 mg PO BEDTIME 30 days allopurinol 300 mg PO DAILY aspirin 81 mg PO DAILY atorvastatin 40 mg PO DAILY lisinopril 40 mg PO DAILY meclizine 25 mg PO Q6H PRN metoprolol succinate ER 25 mg PO DAILY Tobacco use date assessed: 09/07/22 Fall risk assessment: No Falls in past year Last assessed Fall Risk: 02/23/23 Dental Screening Dental Screen Date: 02/23/23 Did you have a dental visit in the last 12 months?: Yes Did you have a dental problem in the last 6 months where you did not have access to dental care?: No Was dental information given to patient?: Patient has dentist HPI [facility] 01/24/23 HPI Details Santiago is a 87 y/o M here today for hospital discharge follow-up.PMHX significant for HTN, BPH CAD, Gout, HLD, pancytopenia. Patient was seen at hospital for acute episode of dizziness and near falls. Was found to have a cerumen impaction was clean in the ED. Orthostatics were negative. EKGs did not show any abnormal rhythms. Was evaluated by Physical therapy for the vertigo.. Was noted to hyponatremia with sodium 124. His hydrochlorothiazide was discontinued on was started on amlodipine 5 mg for his blood pressure. He has followed up with his business records manager whom to come off of amlodipine due to having continued low blood pressures. Gave goal parameters a blood pressures to be between 120 systolic and 140 systolic. Today in office diastolic numbers remains slightly low. He still feels somewhat unsteady on his feet thus use a walker for assistance. CHRONIC MEDICAL CONDITIONS--> . Coronary artery disease: Continues to business records manager in [place]. Most recent lipid panel showing appropriate total cholesterol and LDL. He denies any symptoms of chest discomfort, shortness of breath on exertion or dizziness. .. .. Pancytopenia: Continues to follow hematology has extensive workup with no blood cancer found at this time. Otherwise denies any overt signs of bleeding. [facility] Medical History CAD (coronary artery disease) Polio Anemia BPH w urinary obs/LUTS HTN (hypertension) Surgical History History of biopsy Family History Father Lung cancer Mother No problems noted. Son In good health Social History Household Members: Spouse Housing: House Are you a primary inspector health care facilities to a significant other at home: No Do you presently have visiting nurse or other home services: No Alcohol intake: current Alcohol intake frequency: holidays/special occasions only Alcohol type: wine Patient Tobacco Use Status: Former Tobacco user Tobacco use type: Cigarette Cigarettes Per Day: 20 e-Cigarette/Vaping Use: Never Used Second Hand Smoke Exposure: No service: Yes Current occupational status: retired Cognitive needs: Yes Hearing needs: No Vision needs: No Questionnaire Thrive Questionnaire Date Thrive assessed: 02/05/23 BLANCA-7 AMB Questionnaire BLANCA-7 Date BLANCA - 7 assessed: 09/07/22 Source: Developed by Drs. Yang Alves, Louise Benítez, Jens Roman and colleagues, with an educational brian from [employer]. Review of Systems Const Denies headache(s) Eyes Denies loss of vision ENT Denies vertigo, Denies dizziness, Denies headache(s) and Denies sore throat Card Denies chest pain, Denies leg edema and Denies lightheadedness Resp Denies cough, Denies hemoptysis and Denies wheezing GI Denies abdominal pain, Denies melena, Denies constipation, Denies diarrhea and Denies vomiting Denies dysuria, Denies urinary frequency and Denies urinary urgency Musc Denies arthralgias, Denies joint swelling, Denies numbness and Denies tingling Neuro Denies Abnormal speech present, Denies behavioral changes, Denies vertigo, Denies dizziness, Denies headache(s), Denies loss of vision, Denies memory loss, Denies numbness and Denies tingling Psych Denies anxiety, Denies behavioral changes, Denies depression, Denies memory loss and Denies panic attacks Antonio/Lymph Denies easy bleeding and Denies easy bruising Aller/Immun Denies wheezing Physical exam (Primary Care) Vital Signs: Last Vital Signs Pulse 65 02/23/23 14:08 Resp 16 02/23/23 14:08 BP 120/56 L 02/23/23 14:08 Pulse Ox 95 02/23/23 14:08 Oxygen Delivery Method Room Air 02/23/23 14:08 BMI result Body Mass Index 25.7 Tobacco/Smoking Status: Tobacco use Status Tobacco use date assessed 09/07/22 02/23/23 14:08 Patient Tobacco Use Status Former Tobacco user 02/23/23 14:08 Tobacco use type Cigarette 02/23/23 14:08 e-Cigarette/Vaping Use Never Used 02/23/23 14:08 Thrive Assessment: Date of Thrive Assessment Date Thrive assessed 02/05/23 02/23/23 14:08 Const General: healthy appearing, no acute distress, alert and awake Nutritional Appearance: well nourished Orientation/consciousness: oriented to person, oriented to place and oriented to time HENMT Ears: TM's normal bilaterally General nose exam: Normal nasal mucous membranes and turbinates present Eyes Conjunctivae: conjunctivae normal Sclerae: sclerae normal Pupils: Equal, round and reactive pupils present Neck Neck: Yes no lymphadenopathy and Yes no JVD Thyroid: Thyroid normal Carotids: no bruits Resp Effort & Inspection: normal respiratory effort and not tachypneic Auscultation: no crackles, no rales, no rhonchi and no wheezes Cardio Rate: regular rate Rhythm: regular rhythm Heart sounds: no murmurs and normal S1 and S2 GI Palpation (GI): Soft to palpation, nontender, no hepatomegaly and no splenomegaly Auscultation: normal bowel sounds Skin General skin exam: no rashes or lesions noted and dry skin Neuro General: oriented to person, oriented to place and oriented to time Cranial nerves: Yes Equal, round and reactive pupils present Speech: No Abnormal speech present Gait exam (Neuro): Normal gait present Motor exam (neuro): no tremor noted Extrem Right upper extremity: full ROM Left upper extremity: full ROM Right lower extremity: full ROM; no edema Left lower extremity: full ROM; no edema Psych Mental Status: mental status grossly normal Speech and movement: Normal speech and movement present Affect: normal affect Attitude: cooperative Thought process: Normal thought process present Assessment and Plan Assessment & Plan (1) HTN (hypertension): Code(s): I10 - Essential (primary) hypertension Qualifiers: Hypertension type: primary hypertension Qualified Code(s): I10 - Ess ential (primary) hypertension Plan: Patient's blood pressure remains somewhat low on exam today. He has followed up with business records manager and has been taken off of amlodipine. His hydrochlorothiazide has been discontinued- was hyponatremic. He continues on lisinopril 40, alfuzosin 10, metoprolol 25 follow-up which have affects on his blood pressure. He will continue to monitor blood pressure at home with goal blood pressure to be above 100/60 in below 140/90. Will consider decreasing lisinopril dose if blood pressures remain below 60 diastolic (2) BPPV (benign paroxysmal positional vertigo): Code(s): H81.10 - Benign paroxysmal vertigo, unspecified ear Qualifiers: Laterality: bilateral Qualified Code(s): H81.13 - Benign paroxysmal vertigo, bilateral Plan: We did discuss the signs and symptoms of benign. Six mo positional vertigo. He is interested in vestibular therapy though would like to hold off on this for now. Will use meclizine on a p.r.n. basis his dizziness. Orders: Orders Basic Metabolic Panel 02/23/23 I10 - Essential (primary) hypertension Complete Blood Count no Diff 02/23/23 I10 - Essential (primary) hypertension Medications: Refilled allopurinol 300 mg PO DAILY 90 tabs 2RF Coding Level of Care Code Est Pt Level 4 (95980) Diagnoses Primary hypertension I10 Hypertension type: primary hypertension Benign paroxysmal positional vertigo due to bilateral vestibular disorder H81.13 Laterality: bilateral
[2023-02-23 14:08] VITALS: BP 120/56; PULSE 65; RESP 16; O2SAT 95; BMI 25.7
== END 2023-02-23 14:53 | disposition home or self-care (01) ==
PROVIDERS: PCP Physician Assistant; Visit Provider Physician Assistant
DX: I10 Essential (primary) hypertension (principal); H81.13 Benign paroxysmal vertigo, bilateral
CPT/HCPCS: 99214

== ENCOUNTER 2023-03-13 11:04 | Outpatient (AMB) | payer MEDICARE, SELFPAY ==
[2023-03-13 11:26] VITALS: BP 150/60; PULSE 62; RESP 17; O2SAT 98; BMI 25.4
--- NOTE | 2023-03-13 11:26 | A.OFFPC_ITS ---
Vital Signs 03/13/23 11:26 Height 5 ft 3 in Weight 143 lb 6 oz BMI 25.4 BP 150/60 H Blood Pressure Location Lt brachial Position Sitting Respiration 17 Pulse 62 Pulse Source Pulse Oximeter Pulse Oximetry (%) 98 Oxygen Delivery Method Room Air Intake Visit Reasons: f/u HTN Intake Note: Patient is here to follow up on HTN. Loan Reviewer Required: No Accompanied by: Spouse Allergies hydrochlorothiazide [From Dyazide] Allergy (Unknown, Verified 03/13/23 11:39) Unknown triamterene [From Dyazide] Allergy (Unknown, Verified 03/13/23 11:39) Unknown Medication List - Last Reconciled 03/13/23 by Garrison Brice PA-C alfuzosin ER 10 mg PO BEDTIME 30 days allopurinol 300 mg PO DAILY aspirin 81 mg PO DAILY atorvastatin 40 mg PO DAILY lisinopril 40 mg PO DAILY meclizine 25 mg PO Q6H PRN metoprolol succinate ER 25 mg PO DAILY Tobacco use date assessed: 09/07/22 Fall risk assessment: No Falls in past year Last assessed Fall Risk: 03/13/23 Dental Screening Dental Screen Date: 03/13/23 Did you have a dental visit in the last 12 months?: Yes Did you have a dental problem in the last 6 months where you did not have access to dental care?: No Was dental information given to patient?: Patient has dentist HPI f/u HTN HPI Details Santiago is a 87 y/o M here today for hospital discharge follow-up.PMHX significant for HTN, BPH CAD, Gout, HLD, pancytopenia. Concerns--> reports in the mornings he feels very sluggish though throughout the day and into the 90 feels fine. PLAN: Will try to take his metoprolol at night Hypertension: Blood pressure slightly elevated today in office. He brings in home readings to which show an average of 115-125 systolic. He reports he feels well without any syncopal episodes. He feels much more steady on his feet and is not using a walker at this time. Blood pressure elevates on days he does drive, feels he has some anxiety about driving. BPPV: Has meclizine available to him. Interested in doing vestibular therapy. CHRONIC MEDICAL CONDITIONS--> . Coronary artery disease: Continues to emergency service restorer in [place]. Most recent lipid panel showing appropriate total cholesterol and LDL. He denies any symptoms of chest discomfort, shortness of breath on exertion or dizziness. .. .. Pancytopenia: Continues to follow hematology has extensive workup with no blood cancer found at this time. Otherwise denies any overt signs of bleeding. [facility] Medical History CAD (coronary artery disease) Polio Anemia BPH w urinary obs/LUTS HTN (hypertension) Surgical History History of biopsy Family History Father Lung cancer Mother No problems noted. Son In good health Social History Household Members: Spouse Housing: House Are you a primary childcare administrator to a significant other at home: No Do you presently have visiting nurse or other home services: No Alcohol intake: current Alcohol intake frequency: holidays/special occasions only Alcohol type: wine Patient Tobacco Use Status: Former Tobacco user Tobacco use type: Cigarette Cigarettes Per Day: 20 e-Cigarette/Vaping Use: Never Used Second Hand Smoke Exposure: No service: Yes Current occupational status: retired Cognitive needs: Yes Hearing needs: No Vision needs: No Questionnaire Thrive Questionnaire Date Thrive assessed: 02/05/23 BLANCA-7 AMB Questionnaire BLANCA-7 Date BLANCA - 7 assessed: 09/07/22 Source: Developed by Drs. Yang Alves, Louise Benítez, Jens Roman and colleagues, with an educational brian from [employer]. Review of Systems Const Denies headache(s) Eyes Denies loss of vision ENT Denies vertigo, Denies dizziness, Denies headache(s) and Denies sore throat Card Denies chest pain, Denies leg edema and Denies lightheadedness Resp Denies cough, Denies hemoptysis and Denies wheezing GI Denies abdominal pain, Denies melena, Denies constipation, Denies diarrhea and Denies vomiting Denies dysuria, Denies urinary frequency and Denies urinary urgency Musc Denies arthralgias, Denies joint swelling, Denies numbness and Denies tingling Neuro Denies Abnormal speech present, Denies behavioral changes, Denies vertigo, Denies dizziness, Denies headache(s), Denies loss of vision, Denies memory loss, Denies numbness and Denies tingling Psych Denies anxiety, Denies behavioral changes, Denies depression, Denies memory loss and Denies panic attacks Antonio/Lymph Denies easy bleeding and Denies easy bruising Aller/Immun Denies wheezing Physical exam (Primary Care) Vital Signs: Last Vital Signs Pulse 62 03/13/23 11:26 Resp 17 03/13/23 11:26 BP 150/60 H 03/13/23 11:26 Pulse Ox 98 03/13/23 11:26 Oxygen Delivery Method Room Air 03/13/23 11:26 BMI result Body Mass Index 25.4 Tobacco/Smoking Status: Tobacco use Status Tobacco use date assessed 09/07/22 03/13/23 11:30 Patient Tobacco Use Status Former Tobacco user 03/13/23 11:30 Tobacco use type Cigarette 03/13/23 11:30 e-Cigarette/Vaping Use Never Used 03/13/23 11:30 Thrive Assessment: Date of Thrive Assessment Date Thrive assessed 02/05/23 03/13/23 11:30 Const General: healthy appearing, no acute distress, alert and awake Nutritional Appearance: well nourished Orientation/consciousness: oriented to person, oriented to place and oriented to time HENMT Ears: TM's normal bilaterally General nose exam: Normal nasal mucous membranes and turbinates present Eyes Conjunctivae: conjunctivae normal Sclerae: sclerae normal Pupils: Equal, round and reactive pupils present Neck Neck: Yes no lymphadenopathy and Yes no JVD Thyroid: Thyroid normal Carotids: no bruits Resp Effort & Inspection: normal respiratory effort and not tachypneic Auscultation: no crackles, no rales, no rhonchi and no wheezes Cardio Rate: regular rate Rhythm: regular rhythm Heart sounds: no murmurs and normal S1 and S2 GI Palpation (GI): Soft to palpation, nontender, no hepatomegaly and no splenomegaly Auscultation: normal bowel sounds Skin General skin exam: no rashes or lesions noted and dry skin Neuro General: oriented to person, oriented to place and oriented to time Cranial nerves: Yes Equal, round and reactive pupils present Speech: No Abnormal speech present Gait exam (Neuro): Normal gait present Motor exam (neuro): no tremor noted Extrem Right upper extremity: full ROM Left upper extremity: full ROM Right lower extremity: full ROM; no edema Left lower extremity: full ROM; no edema Psych Mental Status: mental status grossly normal Speech and movement: Normal speech and movement present Affect: normal affect Attitude: cooperative Thought process: Normal thought process present Assessment and Plan Assessment & Plan (1) HTN (hypertension): Code(s): I10 - Essential (primary) hypertension Qualifiers: Hypertension type: primary hypertension Qualified Code(s): I10 - Essential (primary) hypertension Plan: Patient's blood pressure has been more stable at home, today in office slightly elevated.. He has followed up with emergency service restorer and has been taken off of amlodipine. His hydrochlorothiazide has been discontinued- was hyponatremic. He continues on lisinopril 40, alfuzosin 10, metoprolol 25 follow-up which have affects on his blood pressure. He will continue to monitor blood pressure at home with goal blood pressure to be above 100/60 in below 140/90. Will consider decreasing lisinopril dose if blood pressures remain below 60 d iastolic (2) BPPV (benign paroxysmal positional vertigo): Code(s): H81.10 - Benign paroxysmal vertigo, unspecified ear Qualifiers: Laterality: bilateral Qualified Code(s): H81.13 - Benign paroxysmal vertigo, bilateral Plan: Interested in starting vestibular therapy for his intermittent distant is. (3) Hyponatremia: Code(s): E87.1 - Hypo-osmolality and hyponatremia Plan: Has had longstanding hyponatremia. Unclear if hyponatremia secondary to medication.. Has nonfasting labs ordered. Advised to get done soon now that he is off hydrochlorothiazide. Orders: Orders PT Evaluation and Treatment Today H81.13 - Benign paroxysmal vertigo, bilateral Coding Level of Care Code Est Pt Level 4 (27240) Diagnoses Primary hypertension I10 Hypertension type: primary hypertension Benign paroxysmal positional vertigo due to bilateral vestibular disorder H81.13 Laterality: bilateral Hyponatremia E87.1
== END 2023-03-13 12:00 | disposition home or self-care (01) ==
PROVIDERS: Visit Provider Physician Assistant
DX: I10 Essential (primary) hypertension (principal); H81.13 Benign paroxysmal vertigo, bilateral; E87.1 Hypo-osmolality and hyponatremia
CPT/HCPCS: 99214

== ENCOUNTER 2023-05-02 10:40 | Outpatient (AMB) | payer MEDICARE, SELFPAY ==
--- NOTE | 2023-05-02 10:47 | MHC.OFFVIS ---
Intake Intake Visit Reasons: 1Y PVR Intake Note: Patient is Present for Follow Up Urology Medication: Alfuzosin, Antibiotic Allergies:None Blood Thinners: Asprin PVR: 0 Allergies hydrochlorothiazide [From Dyazide] Allergy (Unknown, Verified 05/02/23 10:54) Unknown triamterene [From Dyazide] Allergy (Unknown, Verified 05/02/23 10:54) Unknown Medication List - Last Reconciled 05/02/23 by Gume Green MD alfuzosin ER 10 mg PO BEDTIME 90 days allopurinol 300 mg PO DAILY aspirin 81 mg PO DAILY atorvastatin 40 mg PO DAILY lisinopril 40 mg PO DAILY meclizine 25 mg PO Q6H PRN metoprolol succinate ER 25 mg PO DAILY HPI HPI Comments History of Present Illness Details Della is a pleasant male. He is a patient of Dr. Brice. He is seen for the following urologic issue - lower urinary tract symptoms Yearly follow-up on LUTS symptoms medications Doing well Sleeping through the night PVR 0 UA adequate hydration Had been dizzy with tamsulosin Switch to alfuzosin which has been effective Lower Urinary Tract Symptoms: Prostate 40 g with calcifications Current visit is for further evaluation of, lower urinary tract symptoms, predominate obstructive symptoms. Current treatment includes alfuzosin Prostate Symptom Score 5/19 , Moderate (9-19), Bother 3. Symptoms include 5/19 , incomplete emptying, weak stream, nocturia (>2), and are progressing. Results from testing include renal/bladder us Yes date 11/06/2018 PVR 20 prostate size 40 calcifications PSA 04/16 0.9, 10/16 1.1, 10/17 1,4 Prostate volume 30-50gm. Testing at next visit will include bladder scan [facility] Medical History CAD (coronary artery disease) Polio Anemia BPH w urinary obs/LUTS HTN (hypertension) Surgical History History of biopsy Family History Father Lung cancer Mother No problems noted. Son In good health Social History Household Members: Spouse Housing: House Are you a primary certified social workers in health care to a significant other at home: No Do you presently have visiting nurse or other home services: No Alcohol intake: current Alcohol intake frequency: holidays/special occasions only Alcohol type: wine Patient Tobacco Use Status: Former Tobacco user Tobacco use type: Cigarette Cigarettes Per Day: 20 e-Cigarette/Vaping Use: Never Used Second Hand Smoke Exposure: No service: Yes Current occupational status: retired Cognitive needs: Yes Hearing needs: No Vision needs: No Office Procedures Post Void Residual Post Residual Void Post Void Residual (PVR): 0 [id number] Void Residual by ultrasound Results AMB Urinalysis, Automated UA Leukoctes 0 Faiza/uL Last Edit by Stephanie Mace [facility] on 05/02/23 11:14 UA Nitrite Negative Last Edit by Stephanie Mace [facility] on 05/02/23 11:14 UA Urobilinogen 0.2 mg/dL Last Edit by Stephanie Mace [facility] on 05/02/23 11:14 UA Protein 0 mg/dL Last Edit by Stephanie Mace [facility] on 05/02/23 11:14 UA pH 6.0 Last Edit by Stephanie Mace [facility] on 05/02/23 11:14 UA Blood 0 John/uL Last Edit by Stephanie Mace [facility] on 05/02/23 11:14 UA Specific Elnora 1.015 Last Edit by Stephanie Mace A on 05/02/23 11:14 UA Ketone Negative Last Edit by Stephanie Mace [facility] on 05/02/23 11:14 UA Bilirubin 0 mg/dL Last Edit by Stephanie Mace [facility] on 05/02/23 11:14 UA Glucose 0 mg/dL Last Edit by Stephanie Mace [facility] on 05/02/23 11:14 Results Reviewed Results Reviewed: Laboratory Last Values Urine pH (Auto) 6.0 05/02/23 10:55 Specific Elnora (Auto) 1.015 05/02/23 10:55 Urine Protein (Auto) 0 mg/dL 05/02/23 10:55 Glucose (UA)(Auto) 0 mg/dL 05/02/23 10:55 Urine Ketones (Auto) Negative 05/02/23 10:55 Urine Blood (Auto) 0 John/uL 05/02/23 10:55 Urine Nitrite (Auto) Negative 05/02/23 10:55 Urine Bilirubin (Auto) 0 mg/dL 05/02/23 10:55 Urine Urobilinogen (Auto) 0.2 mg/dL 05/02/23 10:55 Leukocyte Esterase (Auto) 0 Faiza/uL 05/02/23 10:55 Assessment & Plan Assessment & Plan (1) Bladder outlet obstruction: Code(s): N32.0 - Bladder-neck obstruction Plan Twelve month follow-up Orders: Orders AMB Urinalysis Automated Today Z13.9 - Encounter for screening, unspecified AMB Post Void Residual by ultrasound Today R35.1 - Nocturia Patient Instructions: Imaging studies, laboratory and physical exam results were discussed and reviewed in detail. No major barriers to patient understanding were identified. An opportunity to ask questions regarding the treatment plan was provided. All questions were answered. The patient expressed understanding and agreement with the above treatment plan. The patient is aware they should contact our office by phone for worsening of their current condition or the appearance of new urologic symptoms. Compliance is encouraged with any medications and followup testing that is ordered. It is a privilege to participate in the urologic care of your patient. If you have any questions or concerns regarding treatment for the above conditions, or other urologic issues, please do not hesitate to contact me. The office telephone contact is [phone]. This note is constructed using voice recognition software. While every effort has been made to ensure accuracy boil off worker errors may have been included. Yours sincerely, Dr Gume Green MD, [facility] - Urology Providers of Expert, Compassionate Care for the Genitourinary System Coding Level of Care Code Est Pt Level 4 (62189) Diagnoses Bladder outlet obstruction N32.0 CPT Codes Post Residual Void - PVR CPT Code: 50131-Syam Void Residual by ultrasound ([id number])
== END 2023-05-02 11:32 | disposition home or self-care (01) ==
PROVIDERS: Visit Provider Urology
DX: Z13.9 Encounter for screening, unspecified (principal); N32.0 Bladder-neck obstruction
CPT/HCPCS: 99214

== ENCOUNTER → 2023-05-02 10:40 | Outpatient (BNVA) | payer MEDICARE, SELFPAY | PROVIDERS: Visit Provider Urology | DX: N32.0 Bladder-neck obstruction (principal) | CPT/HCPCS: 51798; 81003; 99212 ==

== ENCOUNTER 2023-05-30 11:00 | Outpatient (RCR) | payer MEDICARE, SELFPAY ==
--- NOTE | 2023-05-09 12:53 | MHC.PT.EP ---
[facility] [place] Office [place] Office [place] Office [address] [phone] F: [phone] F: [phone] F: [phone] F: [phone] Physical Therapy Plan of Care Date of Evaluation: 04/28/23 Date of Surgery: Diagnosis: BPPV, falls secondary to dizziness, vestibular hypofunction Assessment: Pt is an 87yo male who was referred to PT for vestibular rehab. Pt describes having vertigo this past fall, treated inpatient here at [facility] with good results. PT exam today reveals vestibular hypofunction and need for balance/habituation exercises to maximize functional mobility and reduce risk for falls. Frequency and Duration: The patient will be seen 2x/week, x 4 weeks Short Term Goals: 1. In 2 weeks, patient will be I with gaze stabilization during transitional movements. 2. In 2 weeks, patient will be I with VOR up-training exercises in sitting up to 3 minutes without increased dizziness. Faceter Goals: 1. In 4 weeks, patient will score >= 21/26 on DGI indicating reduce risk for falls. 2. In 4 weeks, patient will be I with VOR training in standing, demonstrating good posture. Treatment Plan: Modalities to reduce pain, spasms and effusion. Manual therapy to restore motion and function. Therapeutic exercise to improve strength and flexibility. Neuromuscular re-education for posture and balance. Therapeutic activities to return to functional activities of daily living. Electronically signed by: Yamileth Chambers PT, DPT Please sign and return to therapist. Thank you for your referral.
--- NOTE | 2023-05-30 11:57 | MHC.PT.DC ---
[facility] [place] Office [place] Office [place] Office [address]oz[address] [facility] [phone] F: [phone] F: [phone] F: [phone] F: [phone] Physical Therapy Discharge Report Diagnosis: BPPV, falls secondary to dizziness, vestibular hypofunction Date of Surgery: Date of Evaluation: 04/28/23 Date of Discharge: 05/30/23 Treatments to Date: 6 Cancellations to Date: 0 No Shows to Date: 0 Discharge Status: Achieved Goals Improved Function Independent with HEP Discharge Summary: Pt participated in 6 PT sessions s/p bout of BPPV which was successfully treated as an inpatient. During outpatient PT, re-tested for BPPV but did not require treatment. Instead, we focused on uptraining of VOR, habituation exercises, balance training strategies, taught him gaze stabilization, and prescribed HEP. Pt has met all goals in POC and is in agreement to be D/C at this time, will continue HEP as indicated. Electronically signed by: Yamileth Chambers PT, DPT Please sign and return to therapist. Thank you for your referral.
== END 2023-05-30 11:58 | disposition home or self-care (01) ==
LOC: HO.PT 11:00
PROVIDERS: PCP Physician Assistant; Visit Provider Physician Assistant
DX: H81.13 Benign paroxysmal vertigo, bilateral (principal)
CPT/HCPCS: 97110; 97112; 97116; 97161; 97530

== ENCOUNTER 2023-06-05 12:43 | Outpatient (AMB) | payer MEDICARE, SELFPAY ==
[2023-06-05 12:55] VITALS: BP 130/48; PULSE 60; RESP 16; BMI 26.5
--- NOTE | 2023-06-05 12:55 | MHC.PC.OV ---
Vital Signs 06/05/23 12:55 Height 5 ft 3 in Weight 149 lb 8 oz BMI 26.5 BP 130/48 L Blood Pressure Location Lt brachial Position Sitting Respiration 16 Pulse 60 Pulse Source Palpation Intake Visit Reasons: cataract surgery on 06/13 Intake Note: Patient is here for a Pre-op for Cataracts scheduled with Dr. Rajiv Leonard on 06/13/23. . 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 Accompanied by: Self / Same As Patient Allergies hydrochlorothiazide [From Dyazide] Allergy (Unknown, Verified 06/05/23 13:07) Unknown triamterene [From Dyazide] Allergy (Unknown, Verified 06/05/23 13:07) Unknown Medication List - Last Reconciled 06/05/23 by Garrison Brice PA-C alfuzosin ER 10 mg PO BEDTIME 90 days allopurinol 300 mg PO DAILY aspirin 81 mg PO DAILY atorvastatin 40 mg PO DAILY lisinopril 40 mg PO DAILY meclizine 25 mg PO Q6H PRN metoprolol succinate ER 25 mg PO DAILY Tobacco use date assessed: 06/05/23 Fall risk assessment: No Falls in past year Last assessed Fall Risk: 06/05/23 Dental Screening Dental Screen Date: 06/05/23 Did you have a dental visit in the last 12 months?: Yes Did you have a dental problem in the last 6 months where you did not have access to dental care?: No Was dental information given to patient?: Patient has dentist HPI cataract surgery on 06/13 HPI Details Santiago is a 87 y/o M here today for hospital discharge follow-up.PMHX significant for HTN, BPH CAD, Gout, HLD, pancytopenia. Patient here today for a preop visit. Patient has no past medical history significant for SD, CVA or Congestive heart failure. Patient is not on any anticoagulation or anti-platelet therapy CHRONIC MEDICAL CONDITIONS---> Hypertension: Blood pressure stable today in office. He brings in home readings to which show an average of 115-125 systolic. He reports he feels well without any syncopal episodes. He feels much more steady on his feet and is not using a walker at this time. Blood pressure elevates on days he does drive, feels he has some anxiety about driving. BPPV: Has meclizine available to him. Has done vestibular therapy which has helped. . 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 Most recent lipid panel showing appropriate total cholesterol and LDL. He denies any symptoms of chest discomfort, shortness of breath on exertion or dizziness. .. .. Pancytopenia: Continues to follow hematology has extensive workup with no blood cancer found at this time. Otherwise denies any overt signs of bleeding. [facility] Medical History CAD (coronary artery disease) Polio Anemia BPH w urinary obs/LUTS HTN (hypertension) Surgical History History of biopsy Family History Father Lung cancer Mother No problems noted. Son In good health Social History Household Members: Spouse Housing: House Are you a primary day care aide to a significant other at home: No Do you presently have visiting nurse or other home services: No Alcohol intake: current Alcohol intake frequency: holidays/special occasions only Alcohol type: wine Patient Tobacco Use Status: Former Tobacco user Tobacco use type: Cigarette Cigarettes Per Day: 20 e-Cigarette/Vaping Use: Never Used Second Hand Smoke Exposure: No service: Yes Current occupational status: retired Cognitive needs: Yes Hearing needs: No Vision needs: No Questionnaire PHQ-9 Over the last 2 weeks, how often have you been bothered by any of the following problems? 1. Little interest or pleasure in doing things: not at all 2. Feeling down, depressed, or hopeless: not at all 3. Trouble falling or staying asleep, or sleeping too much: not at all 4. Feeling tired or having little energy: not at all 5. Poor appetite or overeating: not at all 6. Feeling bad about yourself - or that you are a failure or have let yourself or your family down: not at all 7. Trouble concentrating on things, such as reading the newspaper or watching television: not at all 8. Moving or speaking so slowly that other people could have noticed. Or the opposite - being so fidgety or restless that you have been moving around a lot more than usual: not at all 9. Thoughts that you would be better off or of hurting yourself in some way: not at all Total score: 0 Depression Screening Interpretation: Negative Depression Screening Done: Yes 02740 - PHQ-9 Billing: Yes Source: Developed by Drs. Yang Alves, Louise Benítez, Jens Roman and colleagues, with an educational brian from [employer]. Thrive Questionnaire Date Thrive assessed: 06/05/23 I am a: Patient What is your living situation today?: I have a steady place to live Within the past 12 months, did the food you bought not last and you didn't have the money to get more?: Never true Within the past 12 months, did you worry whether your food would run out before you got money to buy more?: Never true Do you have trouble paying for medicines?: No Do you have trouble getting transportation to medical appointments?: No Do you have trouble paying your heating and electricity bill?: No Do you have trouble taking care of your child, family member or friend?: No Do you have trouble with day-to-day activities such as bathing, preparing meals, shopping, managing finances, etc.?: No Are you currently unemployed and looking for a job?: No Are you interested in more education?: No Please select the resources that you would like help with: None Currently or been in a relationship where the following occur: no concerns reported AUDIT C Alcohol Use Questionnaire (AUDIT-C) 1. How often do you have a drink containing alcohol?: Never Total Score: 0 BLANCA-7 AMB Questionnaire BLANCA-7 Date BLANCA - 7 assessed: 06/05/23 Feeling nervous, anxious, or on edge: 0 = Not at all Not being able to stop or control worryin = Not at all Worrying too much about different things: 0 = Not at all Trouble relaxin = Not at all Being so restless that it is hard to sit still: 0 = Not at all Becoming easily annoyed or irritable: 0 = Not at all Feeling afraid as if something awful might happen: 0 = Not at all Total BLANCA-7 score (0-4 normal; 5-9 mild; 10-14 moderate; 15-21 severe): 0 Source: Developed by Drs. Yang Alves, Louise Benítez, Jens Roman and colleagues, with an educational brian from [employer]. BLANCA-7 Assessment Billing BLANCA-7 Assessment Tool: BLANCA-7 Assessment 85530 Review of Systems Const Denies headache(s) Eyes Denies loss of vision ENT Denies vertigo, Denies dizziness, Denies headache(s) and Denies sore throat Card Denies chest pain, Denies leg edema and Denies lightheadedness Resp Denies cough, Denies hemoptysis and Denies wheezing GI Denies abdominal pain, Denies melena, Denies constipation, Denies diarrhea and Denies vomiting Denies dysuria, Denies urinary frequency and Denies urinary urgency Musc Denies arthralgias, Denies joint swelling, Denies numbness and Denies tingling Neuro Denies Abnormal speech present, Denies behavioral changes, Denies vertigo, Denies dizziness, Denies headache(s), Denies loss of vision, Denies memory loss, Denies numbness and Denies tingling Psych Denies anxiety, Denies behavioral changes, Denies depression, Denies memory loss and Denies panic attacks Antonio/Lymph Denies easy bleeding and Denies easy bruising Aller/Immun Denies wheezing Physical exam (Primary Care) Vital Signs: Last Vital Signs Pulse 60 06/05/23 12:55 Resp 16 06/05/23 12:55 BP 130/48 L 06/05/23 12:55 BMI result Body Mass Index 26.5 Tobacco/Smoking Status: Tobacco use Status Tobacco use date assessed 06/05/23 06/05/23 13:02 Patient Tobacco Use Status Former Tobacco user 06/05/23 12:55 Tobacco use type Cigarette 06/05/23 12:55 e-Cigarette/Vaping Use Never Used 06/05/23 12:55 PHQ-9: PHQ-9 Score PHQ-9: Total score 0 06/05/23 13:05 Depression Screening Interpretation: Negative Thrive Assessment: Date of Thrive Assessment Date Thrive assessed 06/05/23 06/05/23 13:02 Currently or been in a relationship where the following occur: no concerns reported Const General: healthy appearing, no acute distress, alert and awake Nutritional Appearance: well nourished Orientation/consciousness: oriented to person, oriented to place and oriented to time HENMT Ears: TM's normal bilaterally General nose exam: Normal nasal mucous membranes and turbinates present Eyes Conjunctivae: conjunctivae normal Sclerae: sclerae normal Pupils: Equal, round and reactive pupils present Neck Neck: Yes no lymphadenopathy and Yes no JVD Thyroid: Thyroid normal Carotids: no bruits Resp Effort & Inspection: normal respiratory effort and not tachypneic Auscultation: no crackles, no rales, no rhonchi and no wheezes Cardio Rate: regular rate Rhythm: regular rhythm Heart sounds: no murmurs and normal S1 and S2 GI Palpation (GI): Soft to palpation, nontender, no hepatomegaly and no splenomegaly Auscultation: normal bowel sounds Skin General skin exam: no rashes or lesions noted and dry skin Neuro General: oriented to person, oriented to place and oriented to time Cranial nerves: Yes Equal, round and reactive pupils present Speech: No Abnormal speech present Gait exam (Neuro): Normal gait present Motor exam (neuro): no tremor noted Extrem Right upper extremity: full ROM Left upper extremity: full ROM Right lower extremity: full ROM; no edema Left lower extremity: full ROM; no edema Psych Mental Status: mental status grossly normal Speech and movement: Normal speech and movement present Affect: normal affect Attitude: cooperative Thought process: Normal thought process present Assessment and Plan Assessment & Plan (1) Pre-op evaluation: Code(s): Z01.818 - Encounter for other preprocedural examination Plan: Patient's labs and most recent vitals are stable. Patient is medically clear for needed cataract procedure Orders: Orders Lipid Panel Today I25.10 - Atherosclerotic heart disease of [place] coronary artery without angina pectoris Comprehensive [place]. Panel Fast Today I25.10 - Atherosclerotic heart disease of [place] coronary artery without angina pectoris Complete Blood Count no Diff Today I25.10 - Atherosclerotic heart disease of [place] coronary artery without angina pectoris Prostate Specific Antigen Scr Today I25.10 - Atherosclerotic heart disease of [place] coronary artery without angina pectoris, Z12.5 - Encounter for screening for malignant neoplasm of prostate Medications: Refilled lisinopril 40 mg PO DAILY 90 tabs 2RF Coding Level of Care Code Est Pt Level 3 (92100) Diagnoses Pre-op evaluation Z01.818 Additional Codes BLANCA-7 Assessment Billing - BLANCA-7 Assessment Tool: BLANCA-7 Assessment 05930 ([id number])
== END 2023-06-05 13:25 | disposition home or self-care (01) ==
PROVIDERS: PCP Physician Assistant; Visit Provider Physician Assistant
DX: H26.9 Unspecified cataract (principal); Z01.818 Encounter for other preprocedural examination; D61.818 Other pancytopenia
CPT/HCPCS: 99213

== ENCOUNTER 2023-09-07 08:26 | Outpatient (REF) | payer MEDICARE, SELFPAY ==
[2023-09-07 09:46] LABS: Hematocrit 35.5 % (42.0-52.0); Hemoglobin 12.3 g/dl (14.0-18.0); Mean Corpuscular HGB Conc 34.6 g/dl (31.0-36.0); Mean Corpuscular Hemoglobin 33.3 pg (27.0-33.0); Mean Corpuscular Volume 96.2 fL (80.0-98.0); Mean Platelet Volume 10.2 fL (9.4-12.4); Platelet Count 155 X10*3/uL (160-400); Red Blood Count 3.69 X10*6/uL (4.60-5.80); Red Cell Distribution Width 13.1 % (11.0-16.0); White Blood Count 3.7 X10*3/uL (4.8-10.8)
[2023-09-07 10:21] LABS: Alanine Aminotransferase 16 U/L (0-40); Albumin Level 4.3 g/dL (3.5-5.0); Alkaline Phosphatase 88 U/L (39-117); Anion Gap 11 (12-20); Aspartate Amino Transferase 19 U/L (5-37); Bilirubin Total 0.9 mg/dL (0.0-1.0); Blood Urea Nitrogen 17 mg/dL (9-16); Calcium 9.7 mg/dL (8.4-10.2); Carbon Dioxide 28 mmol/L (22-29); Chloride 102 mmol/L (96-108); Cholesterol 111 mg/dL (<200); Estimated Glomerular Filt Rate > 60; Glucose Fasting 101 mg/dL (60-99); Glucose Random 102 mg/dL (60-115); HDL Cholesterol 58 mg/dL (>40); LDL Cholesterol Calculated 48 mg/dL (<100); Potassium 4.5 mmol/L (3.3-5.1); Sodium 136 mmol/L (135-145); Total Protein 7.1 g/dL (6.5-8.0); Triglycerides 28 mg/dL (<150)
[2023-09-07 10:35] LABS: Prostate Specific Antigen Scr 1.75 ng/mL (<0.05-4.0)
== END 2023-09-07 08:27 | disposition home or self-care (01) ==
LOC: HO.LAB 08:26
PROVIDERS: PCP Physician Assistant; Visit Provider Physician Assistant
DX: I10 Essential (primary) hypertension (principal); I25.10 Atherosclerotic heart disease of native coronary artery without angina pectoris; Z12.5 Encounter for screening for malignant neoplasm of prostate
CPT/HCPCS: 36415; 80048; 80053; 80061; 84153; 85027

== ENCOUNTER 2023-09-12 10:18 | Outpatient (AMB) | payer MEDICARE, SELFPAY ==
[2023-09-12 10:19] VITALS: BP 130/52; PULSE 63; O2SAT 97; BMI 26.4
--- NOTE | 2023-09-12 10:19 | A.OFFPC_ITS ---
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 Accompanied by: Self / Same As Patient Allergies hydrochlorothiazide [From Dyazide] Allergy (Unknown, Verified 09/12/23 10:33) Unknown triamterene [From Dyazide] Allergy (Unknown, Verified 09/12/23 10:33) Unknown Medication List - Last Reconciled 09/12/23 by Garrison Brice PA-C alfuzosin ER 10 mg PO BEDTIME 90 days allopurinol 300 mg PO DAILY aspirin 81 mg PO DAILY atorvastatin 40 mg PO DAILY lisinopril 40 mg PO DAILY meclizine 25 mg PO Q6H PRN metoprolol succinate ER 25 mg PO DAILY Tobacco use date assessed: 06/05/23 Fall risk assessment: No Falls in past year Last assessed Fall Risk: 09/12/23 Dental Screening Dental Screen Date: 06/05/23 HPI PE HPI Details Santiago is a 88 y/o M here today for annual physical. .PMHX significant for HTN, BPH CAD, Gout , HLD, pancytopenia. Hypertension: Blood pressure stable today in office. He brings in home readings to which show an average of 115-130 systolic. He reports he feels well without any syncopal episodes. He is now off of hydrochlorothiazide. Sodium now has normalized.. BPPV: Has meclizine available to him. Has done vestibular therapy which has helped tremendously. . 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 Most recent lipid panel showing appropriate total cholesterol and LDL. Most recent LDL below 50. He denies any symptoms of chest discomfort, shortness of breath on exertion or dizziness. .. .. Pancytopenia: Continues to follow hematology has extensive workup with no blood cancer found at this time. Otherwise denies any overt signs of bleeding. Vaccines: Up-to-date with COVID vaccine, pneumonia vaccine, tetanus vaccine. Colon cancer screening: Aged out Laboratory Tests 02/04/23 02/05/23 02/06/23 10:25 06:07 06:23 RBC 3.65 L 3.74 L Hgb Sodium 128 L 131 L Fasting Glucose PSA Screen 02/06/23 09/07/23 13:05 08:43 RBC 3.69 L Hgb 12.3 L Sodium 130 L 136 Fasting Glucose 101 H PSA Screen 1.75 PFSH Medical History CAD (coronary artery disease) Polio Anemia BPH w urinary obs/LUTS HTN (hypertension) Surgical History History of biopsy Family History Father Lung cancer Mother No problems noted. Son In good health Social History (Updated 09/12/23 @ 10:38 by Garrison Brice PA-C) Household Members: Spouse Housing: House Are you a primary critical care cns to a significant other at home: No Do you presently have visiting nurse or other home services: No Alcohol intake: current Alcohol intake frequency: holidays/special occasions only Alcohol type: wine Patient Tobacco Use Status: Former Tobacco user Tobacco use type: Cigarette Cigarettes Per Day: 20 e-Cigarette/Vaping Use: Never Used Second Hand Smoke Exposure: No service: Yes Current occupational status: retired Cognitive needs: Yes Hearing needs: No Vision needs: No Questionnaire PHQ-9 Over the last 2 weeks, how often have you been bothered by any of the following problems? 1. Little interest or pleasure in doing things: not at all 2. Feeling down, depressed, or hopeless: not at all 3. Trouble falling or staying asleep, or sleeping too much: not at all 4. Feeling tired or having little energy: not at all 5. Poor appetite or overeating: not at all 6. Feeling bad about yourself - or that you are a failure or have let yourself or your family down: not at all 7. Trouble concentrating on things, such as reading the newspaper or watching television: not at all 8. Moving or speaking so slowly that other people could have noticed. Or the opposite - being so fidgety or restless that you have been moving around a lot more than usual: not at all 9. Thoughts that you would be better off or of hurting yourself in some way: not at all Total score: 0 Depression Screening Interpretation: Negative Depression Screening Done: Yes 71471 - PHQ-9 Billing: Yes Source: Developed by Drs. Yang Alves, Louise Benítez, Jens Roman and colleagues, with an educational brian from [employer]. Thrive Questionnaire Date Thrive assessed: 06/05/23 BLANCA-7 AMB Questionnaire BLANCA-7 Date BLANCA - 7 assessed: 06/05/23 Source: Developed by Drs. Yang Alves, Louise Benítez, Jens Roman and colleagues, with an educational brian from [employer]. Review of Systems Const Denies body aches, Denies chills, Denies excessive sweating, Denies fatigue, Denies fever(s) and Denies headache(s) Eyes Denies blurry vision ENT Denies dysphagia, Denies vertigo, Denies dizziness, Denies headache(s), Denies hearing loss and Denies tinnitus Card Denies chest pain, Denies chest pain with activity, Denies syncope, Denies irregular heart rhythm and Denies dyspnea Resp Denies chest congestion, Denies cough, Denies hemoptysis, Denies dyspnea and Denies wheezing GI Denies abdominal pain, Denies melena, Denies hematochezia, Denies coffee ground emesis, Denies dysphagia, Denies diarrhea, Denies nausea and Denies vomiting Denies difficulty urinating, Denies dysuria, Denies urinary frequency, Denies urinary hesitancy and Denies urinary urgency Musc Denies arthralgias, Denies limited range of motion, Denies muscle cramps and Denies muscle weakness Skin/Breast Denies rash and Denies skin ulcer Neuro Denies Abnormal speech present, Denies confusion, Denies vertigo, Denies dizziness, Denies syncope, Denies headache(s), Denies memory loss and Denies seizure-like activity Psych Denies anxiety, Denies confusion, Denies depression, Denies memory loss, Denies panic attacks and Denies paranoia Endo Denies excessive sweating, Denies fatigue, Denies flushing, Denies polydipsia and Denies polyuria Aller/Immun Denies wheezing Physical exam (Primary Care) Vital Signs: Last Vital Signs Pulse 63 09/12/23 10:19 BP 130/52 L 09/12/23 10:19 Pulse Ox 97 04/16/24 10:19 Oxygen Delivery Method Room Air 09/12/23 10:19 BMI result Body Mass Index 26.4 Tobacco/Smoking Status: Tobacco use Status Tobacco use date assessed 06/05/23 09/12/23 10:22 Patient Tobacco Use Status Former Tobacco user 09/12/23 10:38 Tobacco use type Cigarette 09/12/23 10:38 e-Cigarette/Vaping Use Never Used 09/12/23 10:38 Depression Screening Interpretation: Negative Thrive Assessment: Date of Thrive Assessment Date Thrive assessed 06/05/23 09/12/23 10:22 Const General: cooperative, comfortable, no acute distress, alert and awake; No confusion Orientation/consciousness: oriented to person, oriented to place, patient oriented x3 and No confusion HENMT Head: Yes normocephalic Ears: external ears normal and TM's normal bilaterally Face and sinus: No sinus tenderness Mouth: Normal oral and palatal mucosa present and tongue normal Teeth and gingiva: dentition normal and gingiva normal Throat: Yes posterior oropharynx normal, Yes tonsils normal and Yes uvula midline Eyes Conjunctivae: conjunctivae normal Sclerae: sclerae normal Pupils: Equal, round and reactive pupils present EOM: EOMs intact bilaterally Direct Ophthalmoscopy: No no photophobia Neck Neck: Yes no lymphadenopathy, No tender and Yes no JVD Thyroid: Thyroid normal Carotids: no bruits Chest Chest palpation & inspection: no tenderness Resp Effort & Inspection: normal respiratory effort, no audible wheezes, not labored and no stridor Auscultation: no crackles, no rales, no rhonchi and no wheezes Cardio Jugular venous distension: no JVD Rate: regular rate, not bradycardic and not tachycardic Rhythm: regular rhythm Bruits: no carotid bruits Peripheral pulses: Peripheral pulses 2+ throughout GI Inspection: Yes normal to inspection, No abdominal wall ecchymosis and No visible herniation Palpation (GI): Soft to palpation, nontender, no guarding, not rigid and No hepatosplenomegaly present Auscultation: normoactive bowel sounds General: Yes no CVA tenderness Back/Spine/Pelvis Back: no CVA tenderness and No back tenderness Cervical Spine: cervical ROM normal Thoracic/Lumbar Spine: thoracic and lumbar spine normal to inspection, straight leg raise negative bilaterally, No thoraco-lumbar ROM limited and No lumbar spinal tenderness Skin Lesions: no lesions Rashes: no rashes Wounds: no wounds Neuro General: oriented to person, oriented to place, patient oriented x3, CN's II-XI intact bilaterally and No confusion Cranial nerves: Yes Equal, round and reactive pupils present and Yes Normal accommodation reflex present Cognition (Neuro): normal cognition Speech: No Abnormal speech present Gait exam (Neuro): Normal gait present Motor exam (neuro): 5/5 motor strength present throughout Extrem Right upper extremity: full ROM; no cyanosis Left upper extremity: full ROM; no cyanosis Right lower extremity: no edema Left lower extremity: no edema Psych Appearance: grossly normal Mental Status: mental status grossly normal Affect: normal affect Attitude: cooperative Thought process: Normal thought process present Assessment and Plan Assessment & Plan (1) Annual physical exam: Code(s): Z00.00 - Encounter for general adult medical examination without abnormal findings (2) HTN (hypertension): Code(s): I10 - Essential (primary) hypertension Qualifiers: Hypertension type: primary hypertension Qualified Code(s): I10 - Essential (primary) hypertension Plan: Patient's blood pressure acceptable today in office. Will continue him on his current dose of antihypertensive medication with goal blood pressure to be below 140/90. (3) Pancytopenia: Code(s): D61.818 - Other pancytopenia Plan: Continues to follow hematology. Continues to have pancytopenia on CBC. Will continue to follow. (4) Hyponatremia: Code(s): E87.1 - Hypo-osmolality and hyponatremia Plan: Has resolved since discontinuing thiazide diuretic. (5) CAD (coronary artery disease): Code(s): I25.10 - Atherosclerotic heart disease of [place] coronary artery without angina pectoris Qualifiers: Associated angina: without angina Coronary Disease-Associated Artery/Lesion type: [place] artery [place] vs. transplanted heart: [place] heart Qualified Code(s): I25.10 - Atherosclerotic heart disease of [place] coronary artery without angina pectoris Plan: Continues to follow cardiology. Most recent lipid panel showing excellent control of his total cholesterol and LDL. Goal LDL to remain below 70 (6) Basal cell carcinoma of face: Code(s): C44.310 - Basal cell carcinoma of skin of unspecified parts of face Plan: Has upcoming appointment with Dermatology remove basal cell lesion on face. Orders: Orders Microalbumin, Random (w Creat) Today I10 - Essential (primary) hypertension Lipid Panel Today I25.10 - Atherosclerotic heart disease of [place] coronary artery without angina pectoris Comprehensive [place]. Panel Fast Today I25.10 - Atherosclerotic heart disease of [place] coronary artery without angina pectoris Complete Blood Count no Diff Today D61.818 - Other pancytopenia Patient Instructions: Goal: Continue managing blood pressure with goal blood pressure be below 140/90, goal LDL to remain below 70 Barrier: Age , remembering to consistently monitor blood pressure Coding Level of Care Code Est Pt Prev Care >65y(91848) Diagnoses Annual physical exam Z00.00 Primary hypertension I10 Hypertension type: primary hypertension Pancytopenia D61.818 Hyponatremia E87.1 Coronary artery disease involving [place] coronary artery of [place] heart without angina pectoris I25.10 Associated angina: without angina Coronary Disease-Associated Artery/Lesion type: [place] artery [place] vs. transplanted heart: [place] heart Basal cell carcinoma of face C44.310
== END 2023-09-12 11:04 | disposition home or self-care (01) ==
PROVIDERS: PCP Physician Assistant; Visit Provider Physician Assistant
DX: I10 Essential (primary) hypertension (principal); D61.818 Other pancytopenia; E87.1 Hypo-osmolality and hyponatremia; I25.10 Atherosclerotic heart disease of native coronary artery without angina pectoris; C44.310 Basal cell carcinoma of skin of unspecified parts of face
CPT/HCPCS: 99214

== ENCOUNTER 2024-03-05 09:15 | Outpatient (REF) | payer MEDICARE, SELFPAY ==
[2024-03-05 09:45] LABS: Hemoglobin 12.2 g/dl (14.0-18.0); Mean Corpuscular HGB Conc 34.9 g/dl (31.0-36.0); Mean Corpuscular Hemoglobin 33.7 pg (27.0-33.0); Mean Corpuscular Volume 96.7 fL (80.0-98.0); Mean Platelet Volume 9.8 fL (9.4-12.4); Platelet Count 134 X10*3/uL (160-400); Red Blood Count 3.62 X10*6/uL (4.60-5.80); Red Cell Distribution Width 12.8 % (11.0-16.0); White Blood Count 3.6 X10*3/uL (4.8-10.8)
[2024-03-05 10:04] LABS: Alanine Aminotransferase 15 U/L (0-40); Albumin Level 4.4 g/dL (3.5-5.0); Alkaline Phosphatase 90 U/L (39-117); Anion Gap 9 (12-20); Aspartate Amino Transferase 23 U/L (5-37); Blood Urea Nitrogen 18 mg/dL (9-16); Calcium 9.9 mg/dL (8.4-10.2); Carbon Dioxide 29 mmol/L (22-29); Chloride 100 mmol/L (96-108); Cholesterol 113 mg/dL (<200); Estimated Glomerular Filt Rate > 60; Glucose Fasting 107 mg/dL (60-99); HDL Cholesterol 55 mg/dL (>40); LDL Cholesterol Calculated 52 mg/dL (<100); Potassium 4.4 mmol/L (3.3-5.1); Sodium 134 mmol/L (135-145); Total Protein 7.2 g/dL (6.5-8.0); Triglycerides 31 mg/dL (<150)
[2024-03-05 11:21] LABS: Creatinine Urine 191.68 mg/dL; Microalbum/Creatinine Ratio Ur 44.8 ug/mg cr (<30)
== END 2024-03-05 09:16 | disposition home or self-care (01) ==
LOC: HO.LAB 09:15
PROVIDERS: PCP Physician Assistant; Visit Provider Physician Assistant
DX: I25.10 Atherosclerotic heart disease of native coronary artery without angina pectoris (principal); I10 Essential (primary) hypertension; D61.818 Other pancytopenia
CPT/HCPCS: 36415; 80053; 80061; 82043; 82570; 85027

== ENCOUNTER 2024-03-18 13:19 | Outpatient (AMB) | payer MEDICARE, SELFPAY ==
--- NOTE | 2024-03-18 13:20 | A.OFFPC_ITS ---
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 Required: No Accompanied by: Self / Same As Patient Allergies hydrochlorothiazide [From Dyazide] Allergy (Unknown, Verified 03/18/24 13:32) Unknown triamterene [From Dyazide] Allergy (Unknown, Verified 03/18/24 13:32) Unknown Medication List - Last Reconciled 03/18/24 by Garrison Brice PA-C alfuzosin ER 10 mg PO BEDTIME 90 days allopurinol 300 mg PO DAILY aspirin 81 mg PO DAILY atorvastatin 40 mg PO DAILY cyanocobalamin (vitamin B-12) 1,000 mcg sublingual DAILY folic acid 1 mg PO DAILY lisinopril 40 mg PO DAILY meclizine 25 mg PO Q6H PRN metoprolol succinate ER 25 mg PO DAILY Tobacco use date assessed: 06/05/23 Fall risk assessment: No Falls in past year Last assessed Fall Risk: 03/18/24 Dental Screening Dental Screen Date: 06/05/23 HPI f/u HTN/ CAD - see comments HPI Details Santiago is a 88 y/o M here today for a follow-up visit .PMHX significant for HTN, BPH CAD, Gout , HLD, pancytopenia. Hypertension: Blood pressure slightly elevated today in office. He brings in home readings to which show an average of 115-130 systolic. He reports he feels well without any syncopal episodes. He is now off of hydrochlorothiazide. Of note noted elevated microalbumin Sodium remains slightly low BPPV: Has meclizine available to him. Has done vestibular therapy which has helped tremendously. . 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 Most recent lipid panel showing appropriate total cholesterol and LDL. Most recent LDL below 50. He denies any symptoms of chest discomfort, shortness of breath on exertion or dizziness. .. Impaired fasting blood sugar: Noted slightly elevated fasting blood sugar most recent labs. .. Pancytopenia: Continues to follow hematology has extensive workup with no blood cancer found at this time. Otherwise denies any overt signs of bleeding. Laboratory Tests 08/31/22 02/06/2324 08:42 13:05 09:38 RBC Hgb 11.7 L Sodium 130 L 133 L Creatinine Fasting Glucose LDL Cholesterol, C alc Urine Microalbumin 5.0 03/05/24 09:30 RBC 3.62 L Hgb 12.2 L Sodium 134 L Creatinine 0.82 Fasting Glucose 107 H LDL Cholesterol, C alc 52 Urine Microalbumin 86.0 PFSH Medical History CAD (coronary artery disease) Polio Anemia BPH w urinary obs/LUTS HTN (hypertension) Surgical History History of biopsy Family History Father Lung cancer Mother No problems noted. Son In good health Social History Household Members: Spouse Housing: House Are you a primary career portals teacher to a significant other at home: No Do you presently have visiting nurse or other home services: No Alcohol intake: current Alcohol intake frequency: holidays/special occasions only Alcohol type: wine Patient Tobacco Use Status: Former Tobacco user Tobacco use type: Cigarette e-Cigarette/Vaping Use: Never Used Second Hand Smoke Exposure: No service: Yes Current occupational status: retired Cognitive needs: Yes Hearing needs: No Vision needs: No Questionnaire PHQ-9 Over the last 2 weeks, how often have you been bothered by any of the following problems? 1. Little interest or pleasure in doing things: not at all 2. Feeling down, depressed, or hopeless: not at all 3. Trouble falling or staying asleep, or sleeping too much: not at all 4. Feeling tired or having little energy: not at all 5. Poor appetite or overeating: not at all 6. Feeling bad about yourself - or that you are a failure or have let yourself or your family down: not at all 7. Trouble concentrating on things, such as reading the newspaper or watching television: not at all 8. Moving or speaking so slowly that other people could have noticed. Or the opposite - being so fidgety or restless that you have been moving around a lot more than usual: not at all 9. Thoughts that you would be better off or of hurting yourself in some way: not at all Total score: 0 Depression Screening Interpretation: Negative Depression Screening Done: Yes 52912 - PHQ-9 Billing: Yes Source: Developed by Drs. Yang Alves, Jens Alex and colleagues, with an educational brian from Dr [employer]. Thrive Questionnaire Date Thrive assessed: 06/05/23 AUDIT C Alcohol Use Questionnaire (AUDIT-C) 1. How often do you have a drink containing alcohol?: Never Total Score: 0 BLANCA-7 AMB Questionnaire BLANCA-7 Date BLANCA - 7 assessed: 06/05/23 Source: Developed by Drs. Yang Alves, Louise Benítez, Jens Roman and colleagues, with an educational brian from Dr [employer]. Physical exam (Primary Care) Vital Signs: Last Vital Signs Pulse 61 03/18/24 13:21 BP 142/52 H 03/18/24 13:21 Pulse Ox 96 03/18/24 13:21 Oxygen Delivery Method Room Air 03/18/24 13:21 BMI result Body Mass Index 27.3 Tobacco/Smoking Status: Tobacco use Status Tobacco use date assessed 06/05/23 03/18/24 13:21 Patient Tobacco Use Status Former Tobacco user 03/18/24 13:21 Tobacco use type Cigarette 03/18/24 13:21 e-Cigarette/Vaping Use Never Used 03/18/24 13:21 PHQ-9: PHQ-9 Score PHQ-9: Total score 0 03/18/24 13:35 Depression Screening Interpretation: Negative Thrive Assessment: Date of Thrive Assessment Date Thrive assessed 06/05/23 03/18/24 13:21 Office Procedures Flu Questionnaire Does the patient have a severe egg allergy?: No Does the patient have severe life threatening allergies?: No Does the patient have a fever or illness today?: No Has the patient ever had Guillain-Rochester Syndrome?: No Has the patient ever had any past reaction to a flu shot?: No Immunizations Fluarix Triv 1724-0215 (PF) 45 mcg (15 mcg x 3)/0.5 mL IM syringe Performing Provider: Garrison Brice PA-C Performing Location[place] [facility] Administered by: Shameka Quintero LPN on 03/18/24 13:56 Dose Route Admin Location Dispensed Lot Number Expiration Date [facility] Auto Damage Estimator 0.5 mL IM Left Deltoid 0.5 mL [id number] 11/25/24 [id number] Nautit VIS Given Date VIS Provided VIS Publication Date 03/18/24 Single Vaccine 21 Eligibility Eligibility Date Funding Source Not [facility] Eligible 03/18/24 Private Coding Level of Care Code Est Pt Level 4 (19315) Diagnoses Primary hypertension I10 Hypertension type: primary hypertension Coronary artery disease involving [place] coronary artery of [place] heart without angina pectoris I25.10 Coronary Disease-Associated Artery/Lesion type: [place] artery [place] vs. transplanted heart: [place] heart Associated angina: without angina Pancytopenia D61.818 Hyponatremia E87.1 Impaired fasting glucose R73.01 Assessment & Plan Assessment & Plan (1) HTN (hypertension): Code(s): I10 - Essential (primary) hypertension Category: Medical Qualifiers: Hypertension type: primary hypertension Qualified Code(s): I10 - Essential (primary) hypertension Plan: Patient's blood pressure slightly elevated today in office. He reports that home blood pressures are 120s to 130 systolic. Usually runs a bit of a lower diastolic number which could be related to his alpha-mehreen. Otherwise patient is asymptomatic without any headache, syncope, dizziness. He will continue to follow his blood pressure at home (2) CAD (coronary artery disease): Code(s): I25.10 - Atherosclerotic heart disease of [place] coronary artery without angina pectoris Category: Medical Qualifiers: Coronary Disease-Associated Artery/Lesion type: [place] artery [place] vs. 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 Most recent lipid panel showing excellent control of his total cholesterol and LDL. Goal LDL is to remain optimally below 70. (3) Pancytopenia: Code(s): D61.818 - Other pancytopenia Category: Medical Plan: Continues to chronic pancytopenia. Has been started on folic acid Followed by [facility]. Otherwise he is asymptomatic without any significant bruising or bleeding. (4) Hyponatremia: Code(s): E87.1 - Hypo-osmolality and hyponatremia Category: Medical Plan: Patient's hyponatremia seems to be chronic. Most recent sodium slightly low at 134. Has stopped hydrochlorothiazide which seem to have helped. (5) Impaired fasting glucose: Code(s): R73.01 - Impaired fasting glucose Category: Medical Plan: Most recent fasting blood sugar slightly elevated. He does admit to some dietary indiscretion. He will work on lifestyle and dietary modifications to reduce his fasting blood sugars. Orders: Orders Prostate Specific Antigen Scr Today Z12.5 - Encounter for screening for malignant neoplasm of prostate Lipid Panel Today I25.10 - Atherosclerotic heart disease of [place] coronary artery without angina pectoris Microalbumin, Random (w Creat) Today I10 - Essential (primary) hypertension Complete Blood Count no Diff Today I10 - Essential (primary) hypertension Comprehensive [place]. Panel Fast Today I10 - Essential (primary) hypertension Patient Instructions: Goal: Blood pressure to remain below 140/90 Barriers: Adherence to physical activity and healthy eating habits
[2024-03-18 13:21] VITALS: BP 142/52; PULSE 61; O2SAT 96; BMI 27.3
== END 2024-03-18 13:56 | disposition home or self-care (01) ==
PROVIDERS: PCP Physician Assistant; Visit Provider Physician Assistant
DX: I10 Essential (primary) hypertension (principal); I25.10 Atherosclerotic heart disease of native coronary artery without angina pectoris; D61.818 Other pancytopenia; E87.1 Hypo-osmolality and hyponatremia; R73.01 Impaired fasting glucose; Z23 Encounter for immunization

== ENCOUNTER → 2024-03-18 13:19 | Outpatient (BNVA) | payer MEDICARE, SELFPAY | PROVIDERS: PCP Physician Assistant; Visit Provider Physician Assistant | DX: I10 Essential (primary) hypertension (principal); I25.10 Atherosclerotic heart disease of native coronary artery without angina pectoris; D61.818 Other pancytopenia; E78.1 Pure hyperglyceridemia; R73.01 Impaired fasting glucose; Z23 Encounter for immunization | CPT/HCPCS: 90471; 90656; 96127; 99212 ==

== ENCOUNTER 2024-05-03 10:22 | Outpatient (AMB) | payer MEDICARE, SELFPAY ==
--- NOTE | 2024-05-03 10:31 | MHC.OFFVIS ---
Intake Visit Reasons: 1y/PVR Intake Note: Patient is Present for Follow Up Urology Medication: Alfuzosin,ALLOPURINOL Antibiotic Allergies:None Blood Thinners: Asprin PVR: 0ML'S TODAY'S PVR:0ML'S Canopy Inspector Required: No Allergies hydrochlorothiazide [From Dyazide] Allergy (Unknown, Verified 05/03/24 10:32) Unknown triamterene [From Dyazide] Allergy (Unknown, Verified 05/03/24 10:32) Unknown HPI Comments Details: Della is a pleasant male. He is a patient of Dr. Brice. He is seen for the following urologic issue - lower urinary tract symptoms Switch to alfuzosin greatly helped his dizziness Yearly follow-up on LUTS symptoms medications Doing well Sleeping through the night Doing well for an 88-year-old PVR 0 UA adequate hydration Lower Urinary Tract Symptoms: Prostate 40 g with calcifications Current visit is for further evaluation of, lower urinary tract symptoms, predominate obstructive symptoms. Current treatment includes alfuzosin Prostate Symptom Score 5/19 , Moderate (9-19), Bother 3. Symptoms include 5/19 , incomplete emptying, weak stream, nocturia (>2), and are progressing. Results from testing include renal/bladder us Yes date 11/06/2018 PVR 20 prostate size 40 calcifications PSA 04/16 0.9, 10/16 1.1, 10/17 1,4 Prostate volume 30-50gm. Testing at next visit will include bladder scan [facility] Medical History CAD (coronary artery disease) Polio Anemia BPH w urinary obs/LUTS HTN (hypertension) Surgical History History of biopsy Family History Father Lung cancer Mother No problems noted. Son In good health Social History Household Members: Spouse Housing: House Are you a primary nurse care manager to a significant other at home: No Do you presently have visiting nurse or other home services: No Alcohol intake: current Alcohol intake frequency: holidays/special occasions only Alcohol type: wine Patient Tobacco Use Status: Former Tobacco user Tobacco use type: Cigarette e-Cigarette/Vaping Use: Never Used Second Hand Smoke Exposure: No service: Yes Current occupational status: retired Cognitive needs: Yes Hearing needs: No Vision needs: No Review of Systems Const Denies chills and Denies fever(s) Card Reports no additional complaints and Denies syncope Resp Denies cough GI Denies abdominal pain and Denies heartburn Reports as per HPI and Denies change in libido Neuro Denies syncope Psych Denies change in libido Endo Denies change in libido Physical Exam Const General: cooperative, healthy appearing, comfortable and no acute distress Orientation/consciousness: patient oriented x3 HEENT Face and sinus: Yes normal facial exam Mouth: moist mucous membranes Neck Neck: Yes normal visual inspection, Yes full ROM and Yes trachea midline Chest Chest palpation & inspection: normal inspection of the chest Resp Effort & Inspection: normal respiratory effort, able to speak in complete sentences and no respiratory distress GI Inspection: Yes normal to inspection Back/Spine/Pelvis Cervical Spine: normal cervical lordosis Thoracic/Lumbar Spine: thoracic and lumbar spine normal to inspection Skin General skin exam: no rashes or lesions noted Neuro General: patient oriented x3, gait normal, tone normal and moves all extremities Extrem General: Yes normal to inspection and Yes capillary refill normal Office Procedures Post Void Residual Post Residual Void Post Void Residual (PVR): 0 [id number] Void Residual by ultrasound Results AMB Urinalysis, Automated UA Leukoctes 0 Faiza/uL Last Edit by ABBY Sánchez on 05/03/24 10:46 UA Nitrite Negative Last Edit by ABBY Sánchez on 05/03/24 10:46 UA Urobilinogen 0.2 mg/dL Last Edit by ABBY Sánchez on 05/03/24 10:46 UA Protein 15 mg/dL Last Edit by ABBY Sánchez on 05/03/24 10:46 UA pH 6.0 Last Edit by ABBY Sánchez on 05/03/24 10:46 UA Blood 0 John/uL Last Edit by ABBY Sánchez on 05/03/24 10:46 UA Specific [place] 1.015 Last Edit by ABBY Sánchez on 05/03/24 10:46 UA Ketone Negative Last Edit by ABBY Sánchez on 05/03/24 10:46 UA Bilirubin 1 mg/dL Last Edit by ABBY Sánchez on 05/03/24 10:46 UA Glucose 0 mg/dL Last Edit by ABBY Sánchez on 05/03/24 10:46 Results Reviewed Results Reviewed: Laboratory Last Values Urine pH (Auto) 6.0 05/03/24 10:44 Specific [place] (Auto) 1.015 05/03/24 10:44 Urine Protein (Auto) 15 mg/dL 05/03/24 10:44 Glucose (UA)(Auto) 0 mg/dL 05/03/24 10:44 Urine Ketones (Auto) Negative 05/03/24 10:44 Urine Blood (Auto) 0 John/uL 05/03/24 10:44 Urine Nitrite (Auto) Negative 05/03/24 10:44 Urine Bilirubin (Auto) 1 mg/dL 05/03/24 10:44 Urine Urobilinogen (Auto) 0.2 mg/dL 05/03/24 10:44 Leukocyte Esterase (Auto) 0 Faiza/uL 05/03/24 10:44 Assessment & Plan Assessment & Plan (1) Nocturia more than twice per night: Code(s): R35.1 - Nocturia Category: Medical (2) Bladder outlet obstruction: Code(s): N32.0 - Bladder-neck obstruction Category: Medical Plan Twelve month follow-up Orders: Orders AMB Urinalysis Automated Today Z13.9 - Encounter for screening, unspecified Medications: Refilled alfuzosin ER Take before bedtime 10 mg PO BEDTIME 90 tabs 3RF 90 days N32.0 - Bladder-neck obstruction, R39.12 - Poor urinary stream Patient Instructions: Imaging studies, laboratory and physical exam results were discussed and reviewed in detail. No major barriers to patient understanding were identified. An opportunity to ask questions regarding the treatment plan was provided. All questions were answered. The patient expressed understanding and agreement with the above treatment plan. The patient is aware they should contact our office by phone for worsening of their current condition or the appearance of new urologic symptoms. Compliance is encouraged with any medications and followup testing that is ordered. It is a privilege to participate in the urologic care of your patient. If you have any questions or concerns regarding treatment for the above conditions, or other urologic issues, please do not hesitate to contact me. The office telephone contact is [phone]. This note is constructed using voice recognition software. While every effort has been made to ensure accuracy electrician powerhouse errors may have been included. Yours sincerely, Dr Gume Green MD, DONG [facility] - Urology Providers of Expert, Compassionate Care for the Genitourinary System Coding Level of Care Code Est Pt Level 4 (00880) Diagnoses Nocturia more than twice per night R35.1 Bladder outlet obstruction N32.0 CPT Codes Post Residual Void - PVR CPT Code: 22532-Gjja Void Residual by ultrasound ([id number])
== END 2024-05-03 11:17 | disposition home or self-care (01) ==
PROVIDERS: PCP Physician Assistant; Visit Provider Urology
DX: R35.1 Nocturia (principal); N32.0 Bladder-neck obstruction; Z13.9 Encounter for screening, unspecified
CPT/HCPCS: 99214

== ENCOUNTER → 2024-05-03 10:22 | Outpatient (BNVA) | payer MEDICARE, SELFPAY | PROVIDERS: PCP Physician Assistant; Visit Provider Urology | DX: R35.1 Nocturia (principal); N32.0 Bladder-neck obstruction; R39.12 Poor urinary stream; Z79.899 Other long term (current) drug therapy | CPT/HCPCS: 51798; 81003; 99212 ==

== ENCOUNTER 2024-09-18 08:32 | Outpatient (REF) | payer MEDICARE, SELFPAY ==
--- OUTSIDE RECORDS SUMMARY | 2024-09-18 08:58 | XMS_ITS ---
[facility] Organization [facility] Address [address] [place] [address] Care Team Providers Care Blower Operator Name Role Phone Garrison Brice Primary Care Provider Unavailab Trever Aponte Unavailable [phone] Allergies Allergen (clinical drug ingredient) Drug/Non Drug Allergy documented on EMR Reaction Allergy Type Onset Date Status Dyazide dizziness Drug Allergy Active REASON FOR VISIT At Risk Footcare, Painful Nail(s) aggrevated by shoes and causing difficulty standing/walking. Medications Medication SIG (Take, Route, Frequency, Duration) Notes Start Date End Date Status Heparin (Porcine) in NaCl Not-Taking Carac 0.5 % 1 application Externally Once a day Not-Taking hydroCHLOROthiazide 12.5 MG 1 capsule in the morning Orally Once a day for 30 day(s) Not-Taking Lisinopril 40 MG 1 tablet Orally Once a day for 30 day(s) Active Metoprolol Tartrate 25 MG 1 tablet with food Orally Twice a day for 30 day(s) Active Alfuzosin HCl Active Allopurinol 300 MG 1 tablet Orally Once a day for 30 day(s) Active Meclizine HCl 25 MG 1 tablet as needed Orally Active Atorvastatin Calcium 40 MG 1 tablet Oral ly Once a day for 30 day(s) Active Ecotrin 81 MG Active Social History Tobacco Use: Social History Observation Description Date Details (start date - stop date) Former Smoker NA - NA Tobacco Use/Smoking Question Answer Notes Are you a: former smoker Additional Findings: Tobacco Non-User Current no n-smoker Tobacco use other than smoking: Question Answer Notes Are you an other tobacco user? No Vital Signs Height 5 ft 7 in in 01/30/2024 Weight 149 lbs 01/30/2024 BMI 23.33 kg/m2 01/30/2024 Blood pressure systolic 125 mm Hg 01/30/20 Blood pressure diastolic 59 mm Hg 024 Procedures Procedure Date Ordered Date Performed Result Body Sit e 52877-QQKIGIP NAIL, 6 OR MORE 01/30/2024 N/A 65728-BWET SKIN LESIONS, 2 TO 4 01/30/2024 N/A Encounters Encounter Location Date Provider Diagnosis [facility] [address] [place] [address] 01/30/2024 Treverjane Stokesier Atherosclerosis of tan[place] artery of both lower extremities, with unspecified presence of clinical manifestation I70.203 ; Tinea unguium B35.1 ; Pain in right toe(s) M79.674 and Pain in left toe(s) M79.675 Assessments Encounter Date Diagnosis (ICD Code) Assessment Notes Treatment Notes Treatment Clinical Notes Section Notes 01/30/2024 Atherosclerosis of tan[place]ross artery of both lower extremities, with unspecified presence of clinical manifestation (ICD-10 - I70.203) 01/30/2024 Tinea unguium (ICD-10 - B35.1) 01/30/2024 Pain in right toe(s) (ICD-10 - M79.674) 01/30/2024 Pain in left toe(s) (ICD-10 - M79.675) Plan Of Treatment Pending Test Test Name Order Date 16472-KXVPNNT NAIL, 6 OR MORE 01/30/2024 07271-XDHL SKIN LESIONS, 2 TO 4 01/30/20 24 Next Appt Details Follow Up: prn, Reason: Provider Name:Trever Torres , 10/29/2024 03:00:00 PM, [address] [place], [address], Procedure Notes * Category Sub-Category Detail Notes Debride Nail 6-10 Nail debridement Performance o f this nail treatment by a nonprofessional would put this patients foot and overall health at risk. Therefore, nail debridement was performed extensively to reduce/remove overall nail length, girth, thickness, subungual debris, and necrotic tissue, by manual and/or electrical means through the use of a nail nipper and/or dremel-type soap grinder, to a more viable healthy nail plate or bed tissue 6-10. Silver nitrate used for any petechial bleeding as necessary. Definitive antifungal treatment options have been reviewed and discussed with the patient. The patient chooses, no pharmaceutical tx - 62396 Keratoma Treatment Parring or Cutting o f Benign Hyperkeratotic Lesion(s) 04154 ( 2-4 Lesions ) - The Benign hyperkeratotic lesions, as described above were pared, and/or cut utilizing a sterile 15 blade, tissue nippers, and/or dremel - 31817 , Q9 Progress Notes * Santiago LEWIS MDOB: 7 (88 yo M)Acc No.[id number]:01/30/2024 Progress Note Patient:?Santiago Lewis Provider:?Trever Torres DPM :1935???Age:88 Y???Sex:Male Jerome e:01/30/2024 Address:[address] [place], [place] [id number] Pcp:Garrison Brice Subjective: * Chief Complaints: * ???At Risk FootcarePainful N ail(s) aggrevated by shoes and causing difficulty standing/walking. * HPI: ???At Risk footcare:?Pt States Last PCP Visit:?Date?09/08/2023 * ROS:?General/Constitutional:?Nausea?denies.?Vomiting?denies.?Hunger Thirst?denies.?Loss appetite?denies.?Chills?denies.?Fatigue?denies.?Fever?denies.?Night Sweats?denies.?Unexplained weight loss?denies.?Unexplained weight gain?denies.?HEENTM:?Dentures?denies.?Dizziness?denies.?Glasses/contacts?admits.?Retinopathy?de nies.?Blurred/double vision?denies.?TMJ?denies.?Discharge/drainage?denies.?Implants?denies.?Sore throat?denies.?Dental implants?denies.?Hard of hearing ?denies.?Difficulty chewing/swallowing/speaking?denies.?Nose bleeds?denies.?Sore mouth?denies.?Respiratory:?On Oxygen?denies.?Pneumonia/pleurisy?denies.?Bronchitis?denies.?Emphysema?denies.?C oughing?denies.?Cough blood?denies.?Shortness of breath?denies.?Wheezing?denies.?Cardiovascular:?Pacemaker?denies.?MVP?denies.?WPW?denies.?CHF?denies.?Heart attack?admits.?Septal defect?denies.?Rapid beat?denies.?Chest pain ?denies.?Atrial Fib.?denies.?Murmur/Palpitations?denies.?Gastrointestinal:?Hemorrhoids?denies.?Stomach/Abdominal pain?denies.?Dark blood stool?denies.?Irritable bowel ?denies.?Constipation?denies.?Diarrhea?denies.?Hematology:?Swelling?denies.?Clots?denies.?Varicose Veins?denies.?Bruising?denies.?Bleeding problem?denies.?Genitourinary:?Blood urine?denies.?Frequent/Painfu/urination/bladder control?denies.?Kidney stones?denies.?Infection (UTI)?denies.?Nephropathy?denies.?sex trans dis (STD)?denies.?Prostate?admits.?Musculoskeletal:?Hammertoes?denies.?Bunions?admits.?Back Pain?denies.?Muscle Cramps/ Resting?denies.?Muscle cramps / walking?denies.?Generalized aches and pains?admits.?Weakness?denies.?Integ.:?[place]?denies.?Scars?denies.?Corns/calluses?admits.?Ingrown nails?admits.?Painful nails?admits.?Open Sores?denies.?Rashes?denies.?Neurologic:?Difficulty sleeping?denies.?Brain disorder?denies.?Numbness?denies.?Balance trouble?denies.?Confusion?denies.?Fainting/blackouts?denies.?Tingling?denies.?Tr emors?denies.? * Medical History:? * Surgical History:?Cataracts May 2023mo surgery, cheek and nose 10/19-11/19 * Hospitalization/Major Diagno stic Procedure:?[facility]- Passed out at restaurant- 2 night stay- no diagnosis 09/25/2021ardiologist-Heart Monitor 1 month -03/2022[facility] [place]- fell at home, dehydrated, 4-5 hour stay 01/23/23[facility]- admitted, 3 day stay, dizziness 02/04/23 * Family History:?Mother: dece ased, foot problems.?Father: , heart attack, diagnosed with Unspecified heart disease, Other malignant neoplasm of unspecified site.? * Social History:?Tobacco Use:?Tobacco Use/Smoking?Are you a:?former smoker ?Additional Findings: Tobacco Non-User?Current non-smoker ?Tobacco use other than smoking?Are you an other tobacco user??No ???Miscellaneous:?Caffeine: yes, frequency:, Tea 1-2 cups per day. ?Children: yes, 1. ?Exercise: yes, active , housework. ?Marital status: . ?Occupation: Retired- [employer]. * Medications:?TakingMeclizine HCl 25 MG Tablet Chewable 1 tablet as needed Orally Alfuzosin HCl Allopurinol 300 MG Tablet 1 tablet Orally Once a dayAtorvastatin Calcium 40 MG Tablet 1 tablet Orally Once a dayEcotrin , Notes: 81 MGLisinopril 40 MG Tablet 1 tablet Orally Once a dayMetoprolol Tartrate 25 MG Tablet 1 tablet with food Orally Twice a dayTaking Meclizine HCl 25 MG Tablet Chewable 1 tablet as needed Orally Taking Alfuzosin HCl Taking Allopurinol 300 MG Tablet 1 tablet Orally Once a dayTaking Atorvastatin Calcium 40 MG Tablet 1 tablet Orally Once a dayTaking Ecotrin , Notes: 81 MGTaking Lisinopril 40 MG Tablet 1 tablet Orally Once a dayTaking Metoprolol Tartrate 25 MG Tablet 1 tablet with food Orally Twice a dayNot-Taking/PRNCarac 0.5 % Cream 1 application Externally Once a dayhydroCHLOROthiazide 12.5 MG Capsule 1 capsule in the morning Orally Once a dayHeparin (Porcine) in NaCl Medication List reviewed and reconciled with the patientNot-Taking/PRN Carac 0.5 % Cream 1 application Externally Once a dayNot-Taking/PRN hydroCHLOROthiazide 12.5 MG Capsule 1 capsule in the morning Orally Once a dayNot-Taking/PRN Heparin (Porcine) in NaCl Medication List reviewed and reconciled with the patient * Allergies:?Dyazide: dizzines syes[Allergies Verified] Objective: * Vitals:?Ht: 5 ft 7 in, Wt: 1 49, BMI: 23.33, Shoe size: 9, BP: 125/59 mm Hg, Wt- k.59 kg. * Examination: ???Vascular: ?DP PULSES:? 1/4, B/L.?PT PULSES:?0/4, LEFT , 1/4 , RIGHT.?CAPILLARY FILL TIME:? delayed, all digits, B/L.?SKIN TEMPERTURE GRADIENT OF THE LOWER EXTERMITIES:? decreased, cool to cool, proximal to distal, B/L.?HAIR GROWTH/TEXTURE/ELASTICITY/TURGOR:? decreased, B/L.?PIGMENTATION:? mottled, B/L.?EDEMA:?absent, B/L.?CLAUDICATION:?denies, B/L.?REST PAIN:?denies, B/L.?Nails: ?NAILS are:?Elongated, overgrown, dystrophic, lytic, greater than 3mm thick, discolored and friable with crumbly malodorous subungual debris, with pain on palpation, TA, T1, T3, T4, T5, T7, T9.?Dermatologic: ?SKIN FINDINGS:? Skin exam reveals Keratotic lesion(s) located at, SUB MTH (s), 3,Left, SUB MTH (s), 5, B/L .? Assessment: * Assessment: 1.?Tinea unguium - B35.1?2.? Atherosclerosis of tan[place] artery of both lower extremities, with unspecified presence of clinical manifestation - I70.203 (Primary)?3.?Pain in right toe(s) - M79.674?4.?Pain in left toe(s) - M79.675? Plan: * Treatment: 2.?Tinea unguium?Procedure: 16955-FNYLMQL NAIL, 6 OR MORE * Procedures:?Debride Nail 6-10:?Nail debridement?Performance of this nail treatment by a nonprofessional would put this patients foot and overall health at risk. Therefore, nail debridement was performed extensively to reduce/remove overall nail length, girth, thickness, subungual debris, and necrotic tissue, by manual and/or electrical means through the use of a nail nipper and/or dremel-type soap grinder, to a more viable healthy nail plate or bed tissue 6-10. Silver nitrate used for any petechial bleeding as necessary. Definitive antifungal treatment options have been reviewed and discussed with the patient. The patient chooses, no pharmaceutical tx - 07556.?Keratoma Treatment:?Parring or Cutting of Benign Hyperkeratotic Lesion(s)?22301 ( 2-4 Lesions ) - The Benign hyperkeratotic lesions, as described above were pared, and/or cut utilizing a sterile 15 blade, tissue nippers, and/or dremel - 42179 , Q9.? * Procedure Codes:?67044 DEBRI DE NAIL, 6 OR MORE, Modifiers: XS 45206 TRIM SKIN LESIONS, 2 TO 4, Modifiers: XS , Q9 * Follow Up:?prn * Images: * Sign off status: Completed true * Provider:?Trever Torres DPM Date:?2023 Generated for Aditi corral/Kiya/eTransmitting on:?09/18/2024 08:58 AM EDT History and Physical Notes * HPI (History of Present Illness) Category Sub-Category Detail Notes Category Not es At Risk footcare Pt States Last PCP Visit: Date: Examination Category Sub-Category Detail Notes Category Not es Dermatologic SKIN FINDINGS: Skin exam reveal s Keratotic lesion(s) located at, SUB MTH (s), 3,Left, SUB MTH (s), 5, B/L Vascular DP PULSES (B): 1/4, B/L PT PULSES (B): 0/4, LEFT , 1/4 , RI GHT CAPILLARY FILL TIME: delayed, all digits , B/L TEMPERTURE GRADIENT (C): decreased, cool to cool, proximal to distal, B/L TROPHIC CONDITION-TEXTURE/ELASTICITY/TURGOR/HAIR GROWTH (B): decreased, B/L EDEMA (C): absent, B/L CLAUDICATION (C): denies, B/L REST PAIN: denies, B/L PIGMENTATION: mottled, B/L Nails NAILS are: Elongated, overg rown, dystrophic, lytic, greater than 3mm thick, discolored and friable with crumbly malodorous subungual debris, with pain on palpation, TA, T1, T3, T4, T5, T7, T9
--- OUTSIDE RECORDS SUMMARY | 2024-09-18 08:58 | XMS_ITS ---
Author Organization [facility] Address [address] [address] Care Team Providers Care C.O.D. Clerk Name Role Phone Garrison Brice Primary Care Provider Unavailab Trever Aponte Unavailable [phone] Allergies Allergen (clinical drug ingredient) Drug/Non Drug Allergy documented on EMR Reaction Allergy Type Onset Date Status Dyazide dizziness Drug Allergy Active REASON FOR VISIT At Risk Footcare, Painful Nail(s) aggrevated by shoes and causing difficulty standing/walking. Medications Medication SIG (Take, Route, Frequency, Duration) Notes Start Date End Date Status Meclizine HCl 25 MG 1 tablet as needed Orally Active Heparin (Porcine) in NaCl Not-Taking hydroCHLOROthiazide 12.5 MG 1 capsule in the morning Orally Once a day for 30 day(s) Not-Taking Carac 0.5 % 1 application Externally Once a day Not-Taking Metoprolol Tartrate 25 MG 1 tablet with food Orally Twice a day for 30 day(s) Active Lisinopril 40 MG 1 tablet Orally Once a day for 30 day(s) Active Ecotrin 81 MG Active Atorvastatin Calcium 40 MG 1 tablet Oral ly Once a day for 30 day(s) Active Allopurinol 300 MG 1 tablet Orally Once a day for 30 day(s) Active Alfuzosin HCl Active Social History Tobacco Use: Social History [...] Signs Height 5 ft 7 in in 04/23/2024 Weight 149 lbs 04/23/2024 BMI 23.33 kg/m2 04/23/2024 Blood pressure systolic 125 mm Hg 04/23/20 Blood pressure diastolic 59 mm Hg 024 Procedures Procedure Date Ordered Date Performed Result Body Sit e 15933-ZWVVMAE NAIL, 6 OR MORE 04/23/2024 N/A 11157-UYWW SKIN LESIONS, 2 TO 4 04/23/2024 N/A Encounters Encounter Location Date Provider Diagnosis [facility] [place] [address] [place] [address] 04/23/2024 Trever Torres Atherosclerosis of [place] artery of both lower extremities, with unspecified presence of clinical manifestation I70.203 ; Tinea unguium B35.1 ; Pain in right toe(s) M79.674 and Pain in left toe(s) M79.675 Assessments Encounter Date Diagnosis (ICD Code) Assessment Notes Treatment Notes Treatment Clinical Notes Section Notes 04/23/2024 Atherosclerosis of [place] artery of both lower extremities, with unspecified presence of clinical manifestation (ICD-10 - I70.203) 04/23/2024 Tinea unguium (ICD-10 - B35.1) 04/23/2024 Pain in right toe(s) (ICD-10 - M79.674) 04/23/2024 Pain in left toe(s) (ICD-10 - M79.675) Plan Of Treatment Pending Test Test Name Order Date 98290-FZYOVLP NAIL, 6 OR MORE 04/23/2024 03722-BODI SKIN LESIONS, 2 TO 4 04/23/20 24 Next Appt Details Follow Up: prn, Reason: Provider Name:Trever Torres , 10/29/2024 03:00:00 PM, [address] [place], [address], Procedure Notes * Category Sub-Category Detail Notes Debride Nail 6-10 Nail debridement Performance o f this nail treatment by a nonprofessional would put this patients foot and overall health at risk. Therefore, debridement to affected nail(s), as described in exam, was performed extensively to reduce/remove overall nail length, girth, thickness, subungual debris, and necrotic tissue, by manual and/or electrical means through the use of a nail nipper and/or dremel-type od grinder operator, to a more viable healthy nail plate or bed tissue 6-10 nails in total. Silver nitrate was used for any petechial bleeding as necessary. Definitive antifungal treatment options, both pharmaceutical and surgical, have been reviewed and discussed with the patient. The patient solely prefers the use of intermittent/as needed professional debridement services for their nail condition and understands the need for additional periodic treatments to maintain effectiveness in symptomatic relief - 30957 Keratoma Treatment Parring or Cutting o f Benign Hyperkeratotic Lesion(s) (-56) 2-4 Lesions - The Benign hyperkeratotic lesions, ( 3) in total, locations as stated and described in exam, were pared, and/or cut utilizing a sterile 15 blade, tissue nippers, and/or power dremel instrumentation - 45408, Q8 Progress Notes * Santiago LEWIS MDOB: 7 (88 yo M)Acc No.[id number]:04/23/2024 Progress Note Patient:?Santiago LEWIS Provider:?Trever Torres DPM :1935???Age:88 Y???Sex:Male Jerome e:04/23/2024 Address:[address] [place], [place] [id number] Pcp:Garrison Brice Subjective: * Chief Complaints: * ???At Risk FootcarePainful N ail(s) aggrevated by shoes and causing difficulty standing/walking. * HPI: ???At Risk footcare:?Pt States Last PCP Visit:?Date?03/13/2024 * ROS:?General/Constitutional:?Nausea?denies.?Vomiting?denies.?Hunger Thirst?denies.?Loss appetite?denies.?Chills?denies.?Fatigue?denies.?Fever?denies.?Night Sweats?denies.?Unexplained weight loss?denies.?Unexplained [...] and nose 10/19-11/19 * Hospitalization/Major Diagno stic Procedure:?[facility]- Passed out at restaurant- 2 night stay- no diagnosis 09/25/2021ardiologist-Heart Monitor 1 month -03/2022[facility] [place], dehydrated, 4-5 hour stay 01/23/23[facility] admitted, 3 day stay, dizziness 02/04/23 * Family History:?Mother: dece ased, foot problems.?Father: , heart attack, diagnosed with Other malignant neoplasm of unspecified site, Unspecified heart disease.? * Social History:?Tobacco Use:?Tobacco Use/Smoking?Are you a:?former smoker ?Additional Findings: Tobacco Non-User?Current non-smoker ?Tobacco use other than smoking?Are you an other tobacco user??No ???Drugs/Alcohol:?Drugs?Have you used drugs other than those for medical reasons in the past 12 months??No ?Alcohol Screen?Did you have a drink containing alcohol in the past year??Yes ?Points?0 ?Interpretation?Negative ???Miscellaneous:?Caffeine: yes, frequency:, Tea 1-2 cups per day. ?Children: yes, 1. ?Exercise: yes, active , housework. ?Marital status: . ?Occupation: Retired- [employer]. * Medications:?TakingMeclizine HCl 25 MG Tablet Chewable 1 tablet as needed Orally Alfuzosin HCl Allopurinol 300 MG Tablet 1 tablet Orally Once a day Atorvastatin Calcium 40 MG Tablet 1 tablet Orally Once a day Ecotrin , Notes to Pharmacist: 81 MGLisinopril 40 MG Tablet 1 tablet Orally Once a day Metoprolol Tartrate 25 MG Tablet 1 tablet with food Orally Twice a day Taking Meclizine HCl 25 MG Tablet Chewable 1 tablet as needed Orally Taking Alfuzosin HCl Taking Allopurinol 300 MG Tablet 1 tablet Orally Once a day Taking Atorvastatin Calcium 40 MG Tablet 1 tablet Orally Once a day Taking Ecotrin , Notes to Pharmacist: 81 MGTaking Lisinopril 40 MG Tablet 1 tablet Orally Once a day Taking Metoprolol Tartrate 25 MG Tablet 1 tablet with food Orally Twice a day Not-Taking/PRNCarac 0.5 % Cream 1 application Externally Once a day hydroCHLOROthiazide 12.5 MG Capsule 1 capsule in the morning Orally Once a day Heparin (Porcine) in NaCl Not-Taking/PRN Carac 0.5 % Cream 1 application Externally Once a day Not-Taking/PRN hydroCHLOROthiazide 12.5 MG Capsule 1 capsule in the morning Orally Once a day Not-Taking/PRN Heparin (Porcine) in NaCl * Allergies:?Dyazide: dizzines syes[Allergies Verified] Objective: * Vitals:?Ht: 5 ft 7 in, Wt:14 9, BMI: 23.33, Shoe size:9, BP:125/59mm Hg, Wt-k.59 kg. * Examination: ???Vascular: ?DP PULSES(B):? 1/4, B/L.?PT PULSES(B):?0/4, LEFT , 1/4 , RIGHT.?CAPILLARY FILL TIME:? delayed, all digits, B/L.?TROPHIC CONDITION-TEXTURE/ELASTICITY/TURGOR/HAIR GROWTH(B):? decreased,?fragile, thin, shiny skin,?with sparse to absent hair growth, B/L.?TEMPERTURE GRADIENT(C):? decreased, cool to cool, proximal to distal, B/L.?PIGMENTATION:? mottled, B/L.?EDEMA(C):?absent, B/L.?CLAUDICATION(C):?denies, B/L.?REST PAIN:?denies, B/L.?Nails: ?NAILS are:?Elongated, overgrown, dystrophic, lytic, greater than 3mm thick, discolored and friable with crumbly malodorous subungual debris, with pain on palpation, TA, T1, T3, T4, T5, T7, T9.?Dermatologic: ?SKIN FINDINGS:? Skin exam reveals Keratotic lesion(s) located at, SUB MTH (s), 3,Left, SUB MTH (s), 5, B/L .? Assessment: * Assessment: 1.?Tinea unguium - B35.1???2 .?Atherosclerosis of [place] artery of both lower extremities, with unspecified presence of clinical manifestation - I70.203 (Primary)???3.?Pain in right toe(s) - M79.674???4.?Pain in left toe(s) - M79.675??? Plan: * Treatment: 2.?Tinea unguium?Procedure: 60708-YCBULDC NAIL, 6 OR MORE * Procedures:?Debride Nail 6-10:?Nail debridement?Performance of this nail treatment by a nonprofessional would put this patients foot and overall health at risk. Therefore, debridement to affected nail(s), as described in exam, was performed extensively to reduce/remove overall nail length, girth, thickness, subungual debris, and necrotic tissue, by manual and/or electrical means through the use of a nail nipper and/or dremel-type od grinder operator, to a more viable healthy nail plate or bed tissue 6-10 nails in total. Silver nitrate was used for any petechial bleeding as necessary. Definitive antifungal treatment options, both pharmaceutical and surgical, have been reviewed and discussed with the patient. The patient solely prefers the use of intermittent/as needed professional debridement services for their nail condition and understands the need for additional periodic treatments to maintain effectiveness in symptomatic relief - 58357.?Keratoma Treatment:?Parring or Cutting of Benign Hyperkeratotic Lesion(s)?(-56) 2-4 Lesions - The Benign hyperkeratotic lesions, ( 3) in total, locations as stated and described in exam, were pared, and/or cut utilizing a sterile 15 blade, tissue nippers, and/or power dremel instrumentation - 37298, Q8.? * Procedure Codes:?48856 DEBRI DE NAIL, 6 OR MORE, Modifiers: XS 42584 TRIM SKIN LESIONS, 2 TO 4, Modifiers: XS , Q8 * Follow Up:?prn * Images: * Sign off status: Completed true * Provider:?Trever Torres DPM Date:?2023 Generated for Aditi corral/Kiya/Brandon on:?09/18/2024 08:57 AM EDT History and Physical Notes * [...] distal, B/L TROPHIC CONDITION-TEXTURE/ELASTICITY/TURGOR/HAIR GROWTH (B): decreased, fragile, thin, shiny skin, wi th sparse to absent hair growth, B/L EDEMA (C): absent, B/L CLAUDICATION (C): denies, B/L REST PAIN: denies, B/L PIGMENTATION: mottled, B/L Nails NAILS are: Elongated, overg rown, dystrophic, lytic, greater than 3mm thick, discolored and friable with crumbly malodorous subungual debris, with pain on palpation, TA, T1, T3, T4, T5, T7, T9
--- OUTSIDE RECORDS SUMMARY | 2024-09-18 08:58 | XMS_ITS | Patient Health Record ---
[facility] Organization [facility] Address [address] [place] [address] Care Team Providers Care Sales Hunter Name Role Phone Garrison Brice Primary Care Provider Unavailab Trever Aponte Unavailable [phone] Allergies Allergen (clinical drug ingredient) Drug/Non Drug Allergy documented on EMR Reaction Allergy Type Onset Date Status Dyazide dizziness Drug Allergy Active Reason For Referral No Information Medications Medication SIG (Take, Route, Frequency, Duration) Notes Start Date End Date Status Metoprolol Tartrate 25 MG 1 tablet with food Orally Twice a day for 30 day(s) Active Ecotrin 81 MG Active Lisinopril 40 MG 1 tablet Orally Once a day for 30 day(s) Active Heparin (Porcine) in NaCl Not-Taking Carac 0.5 % 1 application Externally Once a day Not-Taking hydroCHLOROthiazide 12.5 MG 1 capsule in the morning Orally Once a day for 30 day(s) Not-Taking Allopurinol 300 MG 1 tablet Orally Once a day for 30 day(s) Active Atorvastatin Calcium 40 MG 1 tablet Oral ly Once a day for 30 day(s) Active Meclizine HCl 25 MG 1 tablet as needed Orally Active Alfuzosin HCl Active Immunizations Vaccine Route Administration Date Status Commtommie nts COVID-19 Pfizer BioNTech Vaccine Unknown 06/25/2021 Administered 1st 07/09/2020 2nd 07/30/2020 Influenza Unknown 05/03/2022 Administered Social History Tobacco Use: Social History Observation Description Date Details (start date - stop date) Never Smoker NA - NA Alcohol Screen Question Answer Notes Did you have a drink containing alcohol in the p ast year? Yes Points 0 Interpretation Negative Tobacco use other than smoking: Question Answer Notes Are you an other tobacco user? No Tobacco Control (Standard) Question Answer Notes Tobacco use: Nonsmoker Additional Findings: Tobacco non-user Current no nsmoker Problems Problem Type SNOMED Code ICD Code Onset Dates Problem Status W/U Status Risk Notes Problem Atherosclerosis of jackson arteries of the extremities (411202217427322) Atherosclerosis of jackson artery of both lower extremities, with unspecified presence of clinical manifestation (I70.203) Active confirmed Vital Signs Blood pressure diastolic 71 mm Hg 07/30/2024 Height 5 ft 7 in in 07/30/2024 Blood pressure systolic 128 mm Hg 07/30/2024 Weight 149 lbs 07/30/2024 BMI 23.33 kg/m2 07/30/2024 Procedures Procedure Date Ordered Date Performed Result Body Sit e 61898-ZZIFBSU NAIL, 6 OR MORE 11/22/2023 N/A 20642-JYLN SKIN LESIONS, 2 TO 4 11/22/2023 N/A 99446-BRQEWNV NAIL, 6 OR MORE 01/30/2024 N/A 70456-IIOX SKIN LESIONS, 2 TO 4 01/30/2024 N/A 22186-EOAPRQL NAIL, 6 OR MORE 04/23/2024 N/A 47661-RQEK SKIN LESIONS, 2 TO 4 04/23/2024 N/A 91027-VTSLKGP NAIL, 6 OR MORE 07/30/2024 N/A 72903-SFBH SKIN LESIONS, OVER 4 07/30/2024 N/A Encounters Encounter Location Date Provider Diagnosis [facility] [place] [address] [place] [id number] 11/22/2023 Trever Torres Atherosclerosis of jackson artery of both lower extremities, with unspecified presence of clinical manifestation I70.203 ; Tinea unguium B35.1 ; Pain in right toe(s) M79.674 and Pain in left toe(s) M79.675 [facility] [place] [address] [place] [address] 01/30/2024 Trever Torres Atherosclerosis of jackson artery of both lower extremities, with unspecified presence of clinical manifestation I70.203 ; Tinea unguium B35.1 ; Pain in right toe(s) M79.674 and Pain in left toe(s) M79.675 [facility] [address] 04/23/2024 Trever Torres Atherosclerosis of jackson artery of both lower extremities, with unspecified presence of clinical manifestation I70.203 ; Tinea unguium B35.1 ; Pain in right toe(s) M79.674 and Pain in left toe(s) M79.[address] [address] 07/30/2024 Trever Torres Atherosclerosis of jackson artery of both lower extremities, with unspecified presence of clinical manifestation I70.203 ; Tinea unguium B35.1 ; Pain in right toe(s) M79.674 and Pain in left toe(s) M79.675 Assessments Encounter Date Diagnosis (ICD Code) Assessment Notes Treatment Notes Treatment Clinical Notes Section Notes 11/22/2023 Tinea unguium (ICD-10 - B35.1) 11/22/2023 Atherosclerosis of jackson artery of both lower extremities, with unspecified presence of clinical manifestation (ICD-10 - I70.203) 01/30/2024 Tinea unguium (ICD-10 - B35.1) 01/30/2024 Atherosclerosis of jackson artery of both lower extremities, with unspecified presence of clinical manifestation (ICD-10 - I70.203) 04/23/2024 Tinea unguium (ICD-10 - B35.1) 04/23/2024 Atherosclerosis of jackson artery of both lower extremities, with unspecified presence of clinical manifestation (ICD-10 - I70.203) 07/30/2024 Tinea unguium (ICD-10 - B35.1) 07/30/2024 Atherosclerosis of jackson artery of both lower extremities, with unspecified presence of clinical manifestation (ICD-10 - I70.203) 07/30/2024 Pain in right toe(s) (ICD-10 - M79.674) 01/30/2024 Pain in right toe(s) (ICD-10 - M79.674) 04/23/2024 Pain in right toe(s) (ICD-10 - M79.674) 11/22/2023 Pain in right toe(s) (ICD-10 - M79.674) 11/22/2023 Pain in left toe(s) (ICD-10 - M79.675) 04/23/2024 Pain in left toe(s) (ICD-10 - M79.675) 01/30/2024 Pain in left toe(s) (ICD-10 - M79.675) 07/30/2024 Pain in left toe(s) (ICD-10 - M79.675) Plan Of Treatment Pending Test Test Name Order Date 72626-ACPGPRA NAIL, 6 OR MORE 12/11/2020 41844-PUCNUSC NAIL, 6 OR MORE 03/05/2021 49908-LKQEJEV NAIL, 6 OR MORE 05/11/2021 71460-GNIMZEI NAIL, 6 OR MORE 07/20/2021 45415-AQTMYYG NAIL, 6 OR MORE 10/01/2021 23809-LYWJUNO NAIL, 6 OR MORE 12/14/2021 49130-PZDAJGJ NAIL, 6 OR MORE 02/25/2022 56282-JBCYPMQ NAIL, 6 OR MORE 05/01/2020 30520-UDZNXVW NAIL, 6 OR MORE 07/10/2020 39130-RTSZZAX NAIL, 6 OR MORE 09/29/2020 11975-GEEGMJA NAIL, 6 OR MORE 05/10/2022 69517-FENEGUM NAIL, 6 OR MORE 07/28/2022 75351-XABSDGY NAIL, 6 OR MORE 10/05/2022 85391-ZCRXDRE NAIL, 6 OR MORE 12/14/2022 28088-WXYKELY NAIL, 6 OR MORE 02/22/2023 38433-MOQDAIB NAIL, 6 OR MORE 05/09/2023 81473-FZBCVGD NAIL, 6 OR MORE 08/01/2023 40356-ZAYPPAT NAIL, 6 OR MORE 11/22/2023 37697-WGJPTAL NAIL, 6 OR MORE 01/30/2024 35274-VUWYUVW NAIL, 6 OR MORE 04/23/2024 58755-LYXEKFC NAIL, 6 OR MORE 07/30/2024 76803-Xtfdcahs Plate 05/09/2023 98358-Vqezpaxv Plate 09/29/2020 33894 I&D ABSCESS- SIMPLE,SINGLE 022 57849-ZECP SKIN LESIONS, OVER 4 07/31/19 25 49332-MFAQ SKIN LESIONS, 2 TO 4 04/23/20 24 94016-AKEV SKIN LESIONS, 2 TO 4 08/01/19 24 63193-CMIO SKIN LESIONS, 2 TO 4 01/30/20 24 95296-ZPVU SKIN LESIONS, 2 TO 4 11/22/19 24 40413-AUAU SKIN LESIONS, 2 TO 4 05/09/20 23 75735-JEXG SKIN LESIONS, 2 TO 4 02/23/20 23 37767-IPSJ SKIN LESIONS, 2 TO 4 12/15/19 23 13628-QSKD SKIN LESIONS, 2 TO 4 10/06/19 23 09075-IPZR SKIN LESIONS, 2 TO 4 07/29/19 23 58983-SUBC SKIN LESIONS, 2 TO 4 05/10/20 99016-BJHC SKIN LESIONS, 2 TO 4 02/26/20 Next Appt Details Provider Name:Trever Torres , 10/29/2024 03:00:00 PM, [address] [place], [address], Insurance Providers Payer Name Payer Address Payer Phone Subscriber Number Group Number Insured Name Patient Relationship to Insured Coverage Start Date Coverage End Date Medicare [facility] [address] [facility] [address] [id number] Santiago Duncan Self - patient is the insured [employer] [address] [place] [address] [id number] Santiago Duncan Self - patient is the insured Medical (General) History Medical History History ICD Code Gout Heart disease High blood pressure Polio Measles Mumps CAD Hypercholesterolemia Surgical History Surgery Date(Month/Year) Cataracts May 2023 m[facility]s surgery, cheek and nose 10/19-11/19 [place] History Reason Date(Month/Year[place] [facility] [place] 3 [place], dizziness 02/04 [facility]- fell at home, dehydrated, 4-5 hour stay 01/23/23 [place] Supervisor-Heart Monitor 1 month [place] [facility] [place] 2 night s gianna- no diagnosis 09/25/2021
--- OUTSIDE RECORDS SUMMARY | 2024-09-18 08:58 | XMS_ITS ---
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 Name Role Phone Garrison Brice Primary Care Provider Unavailab Trever Aponte Unavailable [phone] Allergies Allergen (clinical drug ingredient) Drug/Non Drug [...] Once a day for 30 day(s) Not-Taking Ecotrin 81 MG Active Allopurinol 300 MG 1 tablet Orally Once a day for 30 day(s) Active Atorvastatin Calcium 40 MG 1 tablet Oral ly Once a day for 30 day(s) Active Meclizine HCl 25 MG 1 tablet as needed Orally Active Alfuzosin HCl Active Social History Tobacco [...] Additional Findings: Tobacco non-user Current no nsmoker Vital Signs Height 5 ft 7 in in 07/30/2024 Weight 149 lbs 07/30/2024 BMI 23.33 kg/m2 07/30/2024 Blood pressure systolic 128 mm Hg 07/31/19 Blood pressure diastolic 71 mm Hg 025 Procedures Procedure Date Ordered Date Performed Result Body Sit e 18934-YUTDJDN NAIL, 6 OR MORE 07/30/2024 N/A 75577-DQYA SKIN LESIONS, OVER 4 07/30/2024 N/A Encounters Encounter Location Date Provider Diagnosis [facility] [place] [address] [place] [address] 07/30/2024 Trever Torres Atherosclerosis of santee sioux artery of both lower extremities, with unspecified presence of clinical manifestation I70.203 ; Tinea unguium B35.1 ; Pain in right toe(s) M79.674 and Pain in left toe(s) M79.675 Assessments Encounter Date Diagnosis (ICD Code) Assessment Notes Treatment Notes Treatment Clinical Notes Section Notes 07/30/2024 Atherosclerosis of santee sioux artery of both lower extremities, with unspecified presence of clinical manifestation (ICD-10 - I70.203) 07/30/2024 Tinea unguium (ICD-10 - B35.1) 07/30/2024 Pain in right toe(s) (ICD-10 - M79.674) 07/30/2024 Pain in left toe(s) (ICD-10 - M79.675) Plan Of Treatment Pending Test Test Name Order Date 55566-NRYESSW NAIL, 6 OR MORE 07/30/2024 88025-NRHE SKIN LESIONS, OVER 4 07/31/19 25 Next Appt Details Follow Up: prn, Reason: Provider Name:Trever Torres , 10/29/2024 03:00:00 PM, [address] [place], [address], Procedure Notes * Category Sub-Category Detail Notes Debride Nail 6-10 Nail debridement Due to the cl inical pathology outlined in the exam findings, performance of this nail treatment is medically necessary as its management by an unskilled/untrained nonprofessional would put this patients foot and overall health at risk. Therefore, debridement to affected nail(s), as described in exam ( TA, T1, T3, T4, T5, T7, T9 ), was performed exclusively by the physician of record to reduce/remove overall nail length, girth, thickness, subungual debris, and necrotic tissue, by manual and/or electrical means through the use of a nail nipper and/or dremel-type grinder outside diameter, to a more viable healthy nail plate [...] to maintain effectiveness in symptomatic relief - 83065 Keratoma Treatment Parring or Cutting o f Benign Hyperkeratotic Lesion(s) (-57) More than 4 Lesions - Due to the at risk nature of the patients medical condition as documented in the exam findings, performance of this keratoderma treatment is medically necessary as its management by an unskilled/untrained nonprofessional would put this patients foot and overall health at risk. Therefore, the benign hyperkeratotic lesions, ( 7 ) in total, locations as stated and described in the exam ( SUB MTH (s),1,B/L, SUB MTH (s), 3,Left, SUB MTH (s), 5, B/L, Plantar Heel(s),B/L ), were pared, and/or cut utilizing a sterile 15 blade, tissue nippers, and/or power dremel instrumentation by the physician of record - 62268, Q8 Progress Notes * Santiago LEWIS MDOB: 7 (89 yo M)Acc No.[id number]:07/30/2024 Progress Note Patient:?Santiago LEWIS Provider:?Trever Torres DPM :1935???Age:89 Y???Sex:Male Jerome e:07/30/2024 Address:[address] [place] [address] , [facility] Pcp:Garrison Brice Subjective: * Chief Complaints: * [...] and nose 10/19-11/19 * Hospitalization/Major Diagno stic [place] [place] 2 night stay- no diagnosis 09/25/2021ardiologist-Heart Monitor 1 month -03/20[place] [place] [place], [place]ated, 4-5 hour stay 01[place]23[place] [place] 3 [place], dizziness 02/04/23 * Family History:?Mother: dece ased, foot problems.?Father: , heart attack, diagnosed with Other malignant neoplasm of unspecified site, Unspecified heart disease.? * Social History:?Tobacco Use:?Tobacco use other than smoking?Are you an other tobacco user??No ?Tobacco Control (Standard)?Tobacco use:?Nonsmoker ?Additional Findings: Tobacco non-user?Current nonsmoker ???Drugs/Alcohol:?Drugs?Have you used drugs other than those for medical reasons in the past 12 months??No ?Alcohol Screen?Did you have a drink containing alcohol in the past year??Yes ?Points?0 ?Interpretation?Negative ???Miscellaneous:?Caffeine: yes, frequency:, Tea 1-2 cups per day. ?Children: yes, 1. ?Exercise: yes, active , housework. ?Marital status: . ?Occupation: Retired- [employer]. * Medications:?TakingMeclizine HCl 25 MG Tablet Chewable [...] Once a day Heparin (Porcine) in NaCl Medication List reviewed and reconciled with the patientNot-Taking/PRN Carac 0.5 % Cream 1 application Externally Once a day Not-Taking/PRN hydroCHLOROthiazide 12.5 MG Capsule 1 capsule in the morning Orally Once a day Not-Taking/PRN Heparin (Porcine) in NaCl Medication List reviewed and reconciled with the patient * Allergies:?Dyazide: dizzines syes[Allergies Verified] Objective: * Vitals:?Ht: 5 ft 7 in, Wt: 1 49, BMI: 23.33, Shoe size: 9, BP: 128/71 mm Hg, Wt- k.59 kg. * Examination: ???Vascular: ?DP PULSES (B):? 1/4, B/L.?PT PULSES (B):?0/4, LEFT , 1/4 , RIGHT.?CAPILLARY FILL TIME:? delayed, all digits, B/L.?TROPHIC CONDITION-TEXTURE/ELASTICITY/TURGOR/HAIR GROWTH (B):? decreased,?fragile, thin, shiny skin,?with sparse to absent hair growth, B/L.?TEMPERTURE GRADIENT (C):? decreased, cool to cool, proximal to distal, B/L.?PIGMENTATION:? mottled, B/L.?EDEMA (C):?absent, B/L.?CLAUDICATION (C):?denies, B/L.?REST PAIN:?denies, B/L.?Nails: ?NAILS are:?Elongated, overgrown, dystrophic, lytic, greater than 3mm thick, discolored and friable with crumbly malodorous subungual debris, with pain on palpation, TA, T1, T3, T4, T5, T7, T9, all other nails not described with characteristics as possessing mycosis are elongated, overgrown, and dystrophic.?Dermatologic: ?SKIN FINDINGS:? Skin exam reveals Keratotic lesion(s) located at,?SUB MTH (s),1,B/L, SUB MTH (s), 3,Left, SUB MTH (s), 5, B/L,?Plantar Heel(s),B/L.? Assessment: * Assessment: 1.?Tinea unguium - B35.1???2 .?Atherosclerosis of santee sioux artery of both lower extremities, with unspecified presence of clinical manifestation - I70.203 (Primary)???3.?Pain in right toe(s) - M79.674???4.?Pain in left toe(s) - M79.675??? Plan: * Treatment: 2.?Tinea unguium?Procedure: 59483-MSXJKMS NAIL, 6 OR MORE * Procedures:?Debride Nail 6-10:?Nail debridement?Due to the clinical pathology outlined in the exam findings, performance of this nail treatment is medically necessary as its management by an unskilled/untrained nonprofessional would put this patients foot and overall health at risk. Therefore, debridement to affected nail(s), as described in exam (?TA,?T1,?T3,?T4,?T5,?T7,?T9?), was performed exclusively by the physician of record to reduce/remove overall nail length, girth, thickness, subungual debris, and necrotic tissue, by manual and/or electrical means through the use of a nail nipper and/or dremel-type grinder outside diameter, to a more viable healthy nail plate or bed tissue 6- 10 nails in total. Silver nitrate was used for any petechial bleeding as necessary. Definitive antifungal treatment options, both pharmaceutical and surgical, have been reviewed and discussed with the patient. The patient solely prefers the use of intermittent/as needed professional debridement services for their nail condition and understands the need for additional periodic treatments to maintain effectiveness in symptomatic relief - 94141.?Keratoma Treatment:?Parring or Cutting of Benign Hyperkeratotic Lesion(s)?(-57) More than 4 Lesions - Due to the at risk nature of the patients medical condition as documented in the exam findings, performance of this keratoderma treatment is medically necessary as its management by an unskilled/untrained nonprofessional would put this patients foot and overall health at risk. Therefore, the benign hyperkeratotic lesions, ( 7 ) in total, locations as stated and described in the exam (?SUB MTH (s),1,B/L,?SUB MTH (s),?3,Left,?SUB MTH (s),?5,?B/L,?Plantar Heel(s),B/L?), were pared, and/or cut utilizing a sterile 15 blade, tissue nippers, and/or power dremel instrumentation by the physician of record - 44036, Q8.? * Procedure Codes:?67015 DEBRI DE NAIL, 6 OR MORE, Modifiers: XS 22770 TRIM SKIN LESIONS, OVER 4, Modifiers: XS , Q8 * Follow Up:?prn * Images: * Sign off status: Completed true * Provider:?Trever Torres DPM Date:?2024 Generated for Aditi corral/Kiya/Brandon on:?09/18/2024 08:57 AM EDT History and Physical Notes * HPI (History of Present Illness) Category Sub-Category Detail Notes Category Not es At Risk footcare Pt States Last PCP Visit: Date: Examination Category Sub-Category Detail Notes Category Not es Dermatologic SKIN FINDINGS: Skin exam reveal s Keratotic lesion(s) located at, SUB MTH (s),1,B/L, SUB MTH (s), 3,Left, SUB MTH (s), 5, B/L, Plantar Heel(s),B/L Vascular DP PULSES (B): 1/4, B/L PT [...] palpation, TA, T1, T3, T4, T5, T7, T9, all other nails not described with characteristics as possessing mycosis are elongated, overgrown, and dystrophic
[2024-09-18 09:14] LABS: Hematocrit 34.8 % (42.0-52.0); Hemoglobin 11.7 g/dl (14.0-18.0); Mean Corpuscular HGB Conc 33.6 g/dl (31.0-36.0); Mean Corpuscular Hemoglobin 32.9 pg (27.0-33.0); Mean Corpuscular Volume 97.8 fL (80.0-98.0); Mean Platelet Volume 9.7 fL (9.4-12.4); Platelet Count 142 X10*3/uL (160-400); Red Blood Count 3.56 X10*6/uL (4.60-5.80); Red Cell Distribution Width 12.7 % (11.0-16.0); White Blood Count 4.8 X10*3/uL (4.8-10.8)
[2024-09-18 09:53] LABS: Alanine Aminotransferase 20 U/L (0-40); Albumin Level 4.2 g/dL (3.5-5.0); Alkaline Phosphatase 90 U/L (39-117); Anion Gap 9 (12-20); Aspartate Amino Transferase 32 U/L (5-37); Bilirubin Total 0.9 mg/dL (0.0-1.0); Blood Urea Nitrogen 22 mg/dL (9-16); Calcium 9.1 mg/dL (8.4-10.2); Carbon Dioxide 28 mmol/L (22-29); Chloride 104 mmol/L (96-108); Cholesterol 110 mg/dL (<200); Estimated Glomerular Filt Rate > 60; Glucose Fasting 105 mg/dL (60-99); HDL Cholesterol 49 mg/dL (>40); LDL Cholesterol Calculated 55 mg/dL (<100); Potassium 4.5 mmol/L (3.3-5.1); Sodium 136 mmol/L (135-145); Triglycerides 32 mg/dL (<150)
[2024-09-18 10:07] LABS: Prostate Specific Antigen Scr 2.48 ng/mL (<0.05-4.0)
[2024-09-18 10:50] LABS: Microalbum/Creatinine Ratio Ur 6.9 ug/mg cr (<30)
== END 2024-09-18 08:33 | disposition home or self-care (01) ==
LOC: HO.LAB 08:32
PROVIDERS: PCP Physician Assistant; Visit Provider Physician Assistant
DX: I25.10 Atherosclerotic heart disease of native coronary artery without angina pectoris (principal); I10 Essential (primary) hypertension; Z12.5 Encounter for screening for malignant neoplasm of prostate
CPT/HCPCS: 36415; 80053; 80061; 82043; 82570; 84153; 85027

== ENCOUNTER 2025-01-28 11:03 | Outpatient (AMB) | payer MEDICARE, SELFPAY ==
--- NOTE | 2025-01-28 11:12 | A.OFFPC_ITS ---
Vital Signs 01/28/25 11:13 Height 5 ft 3 in Weight 152 lb 6 oz BMI 27.0 BP 110/60 Blood Pressure Location Lt brachial Position Sitting Respiration 18 Pulse 59 Pulse Source Pulse Oximeter Temp 97.3 F Temp Source Temporal Artery Scan Pulse Oximetry (%) 98 Oxygen Delivery Method Room Air Intake Visit Reasons: 6m f/u - see comments Auto Damage Adjuster Required: No Accompanied by: Self / Same As Patient Allergies hydrochlorothiazide (From Dyazide) Allergy (Unknown, Verified 01/28/25 11:26) Unknown triamterene (From Dyazide) Allergy (Unknown, Verified 01/28/25 11:26) Unknown Medication List - Last Reconciled 01/28/25 by Garrison Brice PA-C alfuzosin ER 10 mg PO BEDTIME 90 days allopurinol 300 mg PO DAILY aspirin 81 mg PO DAILY atorvastatin 40 mg PO DAILY cyanocobalamin (vitamin B-12) 1,000 mcg sublingual DAILY folic acid 1 mg PO DAILY lisinopril 40 mg PO DAILY meclizine 25 mg PO Q6H PRN metoprolol succinate ER 25 mg PO DAILY nirmatrelvir-ritonavir 300 mg (150 mg x 2)-100 mg (Paxlovid) take TWO 150 mg tablets of nirmatrelvir with ONE 100 mg tablet of ritonavir twice daily for 5 days PO Tobacco use date assessed: 01/28/25 Fall risk assessment: 1 Fall in past year Last assessed Fall Risk: 01/28/25 Dental Screening Dental Screen Date: 01/28/25 Did you have a dental visit in the last 12 months?: Yes Did you have a dental problem in the last 6 months where you did not have access to dental care?: No Was dental information given to patient?: Patient has dentist HPI 6m f/u - see comments HPI Details Santiago is a 89 y/o M here today for a follow-up visit .PMHX significant for HTN, BPH CAD, Gout , HLD, pancytopenia. Hypertension: Blood pressure acceptable today in office. He brings in home readings to which show an average of 115-130 systolic. He reports he feels well without any syncopal episodes. Of note noted elevated microalbumin .. Hypernatremia Sodium remains slightly low at 01:33, he is off of hydrochlorothiazide. BPPV: Has meclizine available to him. Has done vestibular therapy which has helped tremendously. . Coronary artery disease: Continues to drier feeder in [place]. Most recent lipid panel showing appropriate total cholesterol and LDL. Most recent LDL below 50. He denies any symptoms of chest discomfort, shortness of breath on exertion or dizziness. .. .. Pancytopenia: Continues to follow hematology has extensive workup with no blood cancer found at this time. Otherwise denies any overt signs of bleeding. Laboratory Tests 03/05/24 09/18/24 12/05/24 09:30 08:44 10:05 RBC 3.34 L Hgb 11.1 L Sodium 134 L 136 133 L Creatinine 0.87 [facility] Medical History (Updated 01/28/25 @ 11:45 by Garrison Brice PA-C) COVID-19 CAD (coronary artery disease) Polio Anemia BPH w urinary obs/LUTS HTN (hypertension) Surgical History History of biopsy Family History Father Lung cancer Mother No problems noted. Son In good health Social History Household Members: Spouse Housing: House Are you a primary manager urgent care to a significant other at home: No Do you presently have visiting nurse or other home services: No Alcohol intake: current Alcohol intake frequency: holidays/special occasions only Alcohol type: wine Patient Tobacco Use Status: Former Tobacco user Tobacco use type: Cigarette Cigarettes Per Day: 20 e-Cigarette/Vaping Use: Never Used Second Hand Smoke Exposure: No service: Yes Current occupational status: retired Cognitive needs: Yes Hearing needs: No Vision needs: No Questionnaire PHQ-9 Over the last 2 weeks, how often have you been bothered by any of the following problems? 1. Little interest or pleasure in doing things: not at all 2. Feeling down, depressed, or hopeless: not at all 3. Trouble falling or staying asleep, or sleeping too much: not at all 4. Feeling tired or having little energy: not at all 5. Poor appetite or overeating: not at all 6. Feeling bad about yourself - or that you are a failure or have let yourself or your family down: not at all 7. Trouble concentrating on things, such as reading the newspaper or watching television: not at all 8. Moving or speaking so slowly that other people could have noticed. Or the opposite - being so fidgety or restless that you have been moving around a lot more than usual: not at all 9. Thoughts that you would be better off or of hurting yourself in some wa y: not at all Total score: 0 Depression Screening Interpretation: Negative Depression Screening Done: Yes 97574 - PHQ-9 Billing: Yes Source: Developed by Drs. Yang Alves, Louise Benítez, Jens Roman and colleagues, with an educational brian from [employer]. Thrive Questionnaire Date Thrive assessed: 01/28/25 I am a: Patient What is your living situation today?: I have a steady place to live Within the past 12 months, did the food you bought not last and you didn't have the money to get more?: Never true Within the past 12 months, did you worry whether your food would run out before you got money to buy more?: Never true Do you have trouble paying for medicines?: No Do you have trouble getting transportation to medical appointments?: No Do you have trouble paying your heating and electricity bill?: No Do you have trouble taking care of your child, family member or friend?: No Do you have trouble with day-to-day activities such as bathing, preparing meals, shopping, managing finances, etc.?: No Are you currently unemployed and looking for a job?: No Are you interested in more education?: No Please select the resources that you would like help with: None Currently or been in a relationship where the following occur: No concerns reported THRIVE Score: 0 AUDIT C Alcohol Use Questionnaire (AUDIT-C) 1. How often do you have a drink containing alcohol?: 2-4 times a month 2. How many drinks containing alcohol do you have on a typical day when you are drinking?: 1 or 2 3. How often do you have six or more drinks on one occasion?: Never Total Score: 2 BLANCA-7 AMB Questionnaire BLANCA-7 Date BLANCA - 7 assessed: 01/28/25 Feeling nervous, anxious, or on edge: 0 = Not at all Not being able to stop or control worryin = Not at all Worrying too much about different things: 0 = Not at all Trouble relaxin = Not at all Being so restless that it is hard to sit still: 0 = Not at all Becoming easily annoyed or irritable: 0 = Not at all Feeling afraid as if something awful might happen: 0 = Not at all Total BLANCA-7 score (0-4 normal; 5-9 mild; 10-14 moderate; 15-21 severe): 0 Source: Developed by Drs. Yang Alves, Louise Benítez, Jens Roman and colleagues, with an educational brian from [employer]. BLANCA-7 Assessment Billing BLANCA-7 Assessment Tool: BLANCA-7 Assessment 06884 Review of Systems Const Denies headache(s) Eyes Denies loss of vision ENT Denies vertigo, Denies dizziness, Denies headache(s) and Denies sore throat Card Denies chest pain, Denies leg edema and Denies lightheadedness Resp Denies cough, Denies hemoptysis and Denies wheezing GI Denies abdominal pain, Denies melena, Denies constipation, Denies diarrhea and Denies vomiting Denies dysuria, Denies urinary frequency and Denies urinary urgency Musc Denies arthralgias, Denies joint swelling, Denies numbness and Denies tingling Neuro Denies Abnormal speech present, Denies behavioral changes, Denies vertigo, Denies dizziness, Denies headache(s), Denies loss of vision, Denies memory loss, Denies numbness and Denies tingling Psych Denies anxiety, Denies behavioral changes, Denies depression, Denies memory loss and Denies panic attacks Antonio/Lymph Denies easy bleeding and Denies easy bruising Aller/Immun Denies wheezing Physical exam (Primary Care) Vital Signs: Last Vital Signs Temp 97.3 F 01/28/25 11:13 Pulse 59 01/28/25 11:13 Resp 18 01/28/25 11:13 BP 110/60 01/28/25 11:13 Pulse Ox 98 01/28/25 11:13 Oxygen Delivery Method Room Air 01/28/25 11:13 BMI result Body Mass Index 27.0 Tobacco/Smoking Status: Tobacco use Status Tobacco use date assessed 01/28/25 01/28/25 11:14 Patient Tobacco Use Status Former Tobacco user 01/28/25 11:14 Tobacco use type Cigarette 01/28/25 11:14 e-Cigarette/Vaping Use Never Used 01/28/25 11:14 PHQ-9: PHQ-9 Score PHQ-9: Total score 0 01/28/25 11:22 Depression Screening Interpretation: Negative Thrive Assessment: Date of Thrive Assessment Date Thrive assessed 01/28/25 01/28/25 11:14 Currently or been in a relationship where the following occur: No concerns reported Const General: healthy appearing, no acute distress, alert and awake Nutritional Appearance: well nourished Orientation/consciousness: oriented to person, oriented to place and oriented to time HENMT Ears: TM's normal bilaterally General nose exam: Normal nasal mucous membranes and turbinates present Eyes Conjunctivae: conjunctivae normal Sclerae: sclerae normal Pupils: Equal, round and reactive pupils present Neck Neck: Yes no lymphadenopathy and Yes no JVD Thyroid: Thyroid normal Carotids: no bruits Resp Effort & Inspection: normal respiratory effort and not tachypneic Auscultation: no crackles, no rales, no rhonchi and no wheezes Cardio Rate: regular rate Rhythm: regular rhythm Heart sounds: no murmurs and normal S1 and S2 GI Palpation (GI): Soft to palpation, nontender, no hepatomegaly and no splenomegaly Auscultation: normal bowel sounds Skin General skin exam: no rashes or lesions noted and dry skin Neuro General: oriented to person, oriented to place and oriented to time Cranial nerves: Yes Equal, round and reactive pupils present Speech: No Abnormal speech present Gait exam (Neuro): Normal gait present Motor exam (neuro): no tremor noted Extrem Right upper extremity: full ROM Left upper extremity: full ROM Right lower extremity: full ROM; no edema Left lower extremity: full ROM; no edema Psych Mental Status: mental status grossly normal Speech and movement: Normal speech and movement present Affect: normal affect Attitude: cooperative Thought process: Normal thought process present Coding Level of Care Code Est Pt Level 4 (70844) Diagnoses Primary hypertension I10 Hypertension type: primary hypertension Coronary artery disease involving [place] coronary artery of [place] heart without angina pectoris I25.10 Coronary Disease-Associated Artery/Lesion type: [place] artery [place] vs. transplanted heart: [place] lions heart Associated angina: without angina Pancytopenia D61.818 Hyponatremia E87.1 Additional Codes PHQ-9 - 79884 - PHQ-9 Billing: Yes ([id number]) BLANCA-7 Assessment Billing - BLANCA-7 Assessment Tool: BLANCA-7 Assessment 52255 ([id number]) Assessment & Plan Assessment & Plan (1) HTN (hypertension): Code(s): I10 - Essential (primary) hypertension Category: Medical Qualifiers: Hypertension type: primary hypertension Qualified Code(s): I10 - Essential (primary) hypertension Plan: Patient's blood pressure acceptable today in office He reports that home blood pressures are 120s to 130 systolic. He will continue to follow his blood pressure at home. Goal Blood pressure to remain below 140/90 (2) CAD (coronary artery disease): Code(s): I25.10 - Atherosclerotic heart disease of [place] coronary artery without angina pectoris Category: Medical Qualifiers: Coronary Disease-Associated Artery/Lesion type: [place] artery [place] vs. transplanted heart: [place] heart Associated angina: without angina Qualified Code(s): I25.10 - Atherosclerotic heart disease of [place] coronary artery without angina pectoris Plan: Patient continues to follow a drier feeder in [place]. Most recent lipid panel showing excellent control of his total cholesterol and LDL. Goal LDL is to remain optimally below 70. (3) Pancytopenia: Code(s): D61.818 - Other pancytopenia Category: Medical Plan: Continues to chronic pancytopenia. Followed by [facility]. Otherwise he is asymptomatic without any significant bruising or bleeding. (4) Hyponatremia: Code(s): E87.1 - Hypo-osmolality and hyponatremia Category: Medical Plan: Patient's hyponatremia seems to be chronic. Most recent sodium slightly low at 133. Has stopped hydrochlorothiazide which seem to have helped. Medications: Discontinued nirmatrelvir-ritonavir 300 mg (150 mg x 2)-100 mg (Paxlovid) Discontinued Reason: Doctor's Order take TWO 150 mg tablets of nirmatrelvir with ONE 100 mg tablet of ritonavir twice daily for 5 days PO 30 ea 0RF U07.1 - COVID-19
[2025-01-28 11:13] VITALS: BP 110/60; PULSE 59; RESP 18; TEMP 36.3; O2SAT 98; BMI 27.0
--- OUTSIDE RECORDS SUMMARY | 2025-01-28 12:41 | XMS_ITS | Encounter Summary ---
Author Organization [facility] Address [address] [place] [address] Phone Care Team Providers Care Clinical Care Leader Name Role Phone Garrison Brice Primary Care Provider + Encounter Details Date Type Department Care Team (Latest Contact Info) Description 04/26/2022 Ancillary Orders [facility] [address]rd Floor, [address] [place] [address] [phone] Krish Sims MD [address] [place] [address] [phone] Syncope and collapse Social History Tobacco Use Types Packs/Day Years Used Date Smoking Tobacco: Former Smokeless Tobacco: Never Alcohol Use Standard Drinks/Week Comments Yes 0 (1 standard drink = 0.6 oz pur e alcohol) Sex and Gender Information Value Date Recorded Sex Assigned at Not on file Legal Sex Male 10:38 PM EDT Gender Identity Not on file Sexual Orientation Not on file documented as of this encounter Plan of Treatment Upcoming Encounters Date Type Department Care Team (Late st Contact Info) Description 06/11/2025 11:00 AM EST Office Visit [facility] [address] Floor, [address] [place], [place] [phone] Krish Sims MD [address] [place] [address], [address] [phone] Scheduled Orders Name Type Priority Associated Diagnoses Orde r Schedule MCT (Mobile Cardiac Telemetry) Cardiac Monitors Routine Syncope and collapse Expected: 03/01/2022, Expires: 06/01/2022 documented as of this encounter Visit Diagnoses Diagnosis Syncope and collapse documented in this encounter Care Teams Clinical Care Leader Relationship Specialty Start Date End Date Garrison Brice PA [address] [place] [address] PCP - General 08/30/21 documented as of this encounter Additional Source Comments The information contained in this document represents components of the legal health record. It is not the complete legal health record.[facility]
--- OUTSIDE RECORDS SUMMARY | 2025-01-28 12:41 | XMS_ITS | Clinical Summary ---
Author Organization [facility] Address [address] [place] [address] Phone Care Team Providers Care Supervisor Public Message Service Name Role Phone Garrison Brice Primary Care Provider + Allergies Active Allergy Reactions Criticality Noted Date Comments Triamterene-Hydrochlorothiazid Unknown 10/17 Medications allopurinol (ZYLOPRIM) 300 MG tablet Take 300 mg by mouth daily. Active atorvastatin (LIPITOR) 40 MG tablet Take 40 mg by mouth daily. Active lisinopril (PRINIVIL,ZESTRI L) 40 MG tablet Take 40 mg by mouth daily. Active metoprolol succinate (TOPROL-XL) 25 MG 24 hr tablet Take 25 mg by mouth daily. Active aspirin 81 MG EC tablet Take 81 mg by mouth daily. Active alfuzosin (UROXATRAL) 10 mg 24 hr tablet Take 10 mg by mouth daily. 01/31/2023 Active meclizine (ANTIVERT) 25 mg tablet Take 25 mg by mouth as needed for dizziness. 02/06/2023 Active folic acid (FOLVITE) 1 MG tablet Take 1 tablet by mouth every morning. 06/03/2024 Active fluorourracil (CARAC) 0.5 % cream 1 Application . Active Active Problems Problem Noted Date Diagnosed Date Syncope and collapse 05/04/2022 Assessment & Plan (05/04/2022 1:32 PM EST): We reviewed his MCT, showing rare, brief atrial tachycardia. No arrythmia identified as potential cause of syncope. He will continue metoprolol at current dose given normal heart rate distribution and good BP control- especially since he is asymptomatic in regard to the atrial tachycardia. Gout 06/18/2019 CAD (coronary artery disease), [place] coronary a rtery 05/02/2017 Overview (10/24/2017): 1998 IMI no cath Assessment & Plan (06/11/2024 1:24 PM EST): Inferior wall [place] in 1998, from what he tells me sounds like this was initially managed with use of tPA, he never got any stenting done. Has just been medically managed since. Denying any anginal symptoms. Continue aspirin 81 mg daily Continue atorvastatin 40 mg daily (LDL goal at least less than 70) He just recently had labs done at his PCP a few months ago he says. Will request updated labs be sent over. Assessment & Plan (05/04/2022 1:26 PM EST): Denies concerning exertional symptoms today. Will continue medical management. He knows to let us know if he experiences any new symptoms. Assessment & Plan (06/18/2019 12:56 PM EST): 21 years status post [place]. Medically managed. Clinically stable, no angina. Should continue on daily low-dose aspirin and continue to optimize risk factors. Assessment & Plan (12/03/2018 9:40 AM EDT): Continuing to do well. Assessment & Plan (06/01/2018 9:06 AM EST): Doing well. Remains active although does not do regular exercise. Assessment & Plan (10/31/2017 9:17 AM EDT): Doing well without symptoms. I've encouraged him to become more active. Assessment & Plan (05/02/2017 9:17 AM EST): Again remains asymptomatic. I would consider surveillance testing in a year or 2. Benign essential hypertension 05/02/2017 Assessment & Plan (06/11/2024 1:25 PM EST): Well-controlled on metoprolol and lisinopril which will be continued without change Requesting updated labs from PCP. Assessment & Plan (05/04/2022 1:27 PM EST): Well controlled on metprolol, lisinopril and HCTZ. Continue without change. Assessment & Plan (06/18/2019 12:48 PM EST): Goal is less than 130/80. Continue with current treatment of HCTZ, lisinopril, metoprolol. We discussed DASH, educational information provided, recommend daily exercise and stress management. Normal BMP in April 2019. Assessment & Plan (12/03/2018 9:41 AM EDT): Controlled on present therapy. No changes. Assessment & Plan (06/01/2018 9:07 AM EST): Slightly elevated today but again he just caught a cold. He is going to monitor this and if he is consistently over 130 I would add a small dose of amlodipine. Assessment & Plan (10/31/2017 9:18 AM EDT): I have added at 12.5 mg of hydrochlorothiazide. He did take Dyazide in the past and got a headache so we'll see if that recurs. If it does we'll need to come up with something else for his blood pressure. Likely use a calcium mehreen. Assessment & Plan (05/02/2017 9:17 AM EST): Improved but he's going to continue to monitor this. I would like to see it down another 10 or 15 points of possible. Pure hypercholesterolemia 05/02/2017 Assessment & Plan (05/04/2022 1:26 PM EST): Continue atorvastatin with LDL goal < 70 mg/dL. He follows a heart healthy diet and stays active. Assessment & Plan (06/18/2019 12:49 PM EST): Last panel in April 2019 LDL at goal of less than 70. Continue on Lipitor 40 mg and low-fat low-cholesterol diet. Assessment & Plan (12/03/2018 9:41 AM EDT): Excellent profile with an LDL in the 40s and HDL in the 50s. Assessment & Plan (06/01/2018 9:07 AM EST): Lipid profile is fine. No changes. Assessment & Plan (10/31/2017 9:18 AM EDT): Values are well within range. No change in medications. Assessment & Plan (05/02/2017 9:18 AM EST): LDL is 67 with an HDL of 52 and triglycerides 67. Creatinine is 0.8 and LFTs remain normal. Encounters Date Type Department Care Team Description 12/09/2024 11:20 AM EDT Office Visit [facility] [address] [place] [address] 3rd Floor, [address] [place] [address] Krish Sims MD Atherosclerosis of [place] coronary artery of [place] heart without angina pectoris (Primary Dx); Benign essential hypertension; Pure hypercholesterolemia from Last 3 Months Family History Medical History Relation Comments CV disease Father 2 Cancer Father 2 Stroke Mother 2 Relation Status Comments Father 1 Father 2 Mother 1 Mother 2 Social History Tobacco Use Types Packs/Day Years Used Date Smoking Tobacco: Former Smokeless Tobacco: Never Alcohol Use Standard Drinks/Week Comments Yes 0 (1 standard drink = 0.6 oz pur e alcohol) Education Answer Date Recorded Are you interested in more education? Not on hunter e 09/23/2022 Are you concerned about learning? Not on file 09/23/2022 No 09/23/2022 No 09/23/2022 Digital Access Answer Date Recorded No 10/22/2022 No 10/22/2022 Reliable internet access at home? Not on file 10/22/2022 Device with a working camera? Not on file Sex and Gender Information Value Date Recorded Sex Assigned at Not on file Legal Sex Male 10:38 PM EDT Gender Identity Not on file Sexual Orientation Not on file Last Filed Vital Signs Vital Sign Reading Time Taken Comments Blood Pressure 114/66 12/09/2024 11:30 AM EDT Pulse 65 12/09/2024 11:30 AM EDT Temperature - - Respiratory Rate - - Oxygen Saturation 96% 12/09/2024 11:30 AM EDT Inhaled Oxygen Concentration - - Weight 69.9 kg (154 lb) 12/09/2024 11:30 AM EDT Height 170.2 cm (5' 7.01 ) 12/09/2024 11:30 AM E DT Body Mass Index 24.11 12/09/2024 11:30 AM EDT Plan of Treatment Upcoming Encounters Date Type Department Care Team (Late st Contact Info) Description 06/11/2025 11:00 AM EST Office Visit [facility] [address] [place] [address] 3rd Floor, [address] [place] [address] Krish Sims MD [address] [facility], [address] [phone] [email or web address] Due Date Last Done Comments CREATININE LEVEL 1937 POTASSIUM LEVEL 1937 DEPRESSION SCREENING 1949 ZOSTER VACCINES (1 of 2) 1987 RSV VACCINE (1 - 1-dose 75+ series) 2012 PNEUMOCOCCAL VACCINES (50+ years) (2 of 2 - PCV) 11/14/2019 11/13/2018 INFLUENZA VACCINE (#1) 2024 9, 04/30/2019, 05/01/2018, Additional history exists COVID-19 VACCINE (3 - season) 2025 07/30/2020, 07/09/2020 Adult Td,Tdap Booster 12/17/2027 12/16/2017 HEPATITIS A VACCINES Aged Out No long er eligible based on patient's age to complete this topic HIB VACCINES Aged Out No longer eligi ble based on patient's age to complete this topic MENINGOCOCCAL VACCINES (ACWY) Aged Out No longer eligible based on patient's age to complete this topic MENINGOCOCCAL VACCINES (B) Aged Out N o longer eligible based on patient's age to complete this topic Medical Devices Not on file Insurance MEDICARE PART A & B Member Subscriber Plan / Payer ( fective 2002-Present) Name:Domenic Lewis Member ID:[id number] Relation to Subscriber:Self Name:Domenic Lewis Subscriber ID:[id number] Payer ID:[id number] Group ID:Not on file Type:Medicare Address: [employer] [address] [place] [id number] [employer] SUPPLEMENT MEDICARE PART A & B [employer] SUPPLEMENT MEDICARE PART A & B [employer] MEDEX SUPPLEMENT MEDICARE PART A & B [employer] MEDEX SUPPLEMENT MEDICARE PART A & B [employer] MEDEX SUPPLEMENT MEDICARE PART A & B [employer] MEDEX SUPPLEMENT MEDICARE PART A & B [employer] MEDEX SUPPLEMENT MEDICARE PART A & B [employer] SUPPLEMENT MEDICARE PART A & B [employer] MEDEX SUPPLEMENT Care Teams Supervisor Public Message Service Relationship Specialty Start Date End Date Garrison Brice PA [address] [place] [phone] PCP - General 08/30/21 Additional Source Comments The information contained in this document represents components of the legal health record. It is not the complete legal health record.[facility]
== END 2025-01-28 11:47 | disposition home or self-care (01) ==
LOC: HO.HMCH 11:08
PROVIDERS: PCP Physician Assistant; Visit Provider Physician Assistant
DX: I10 Essential (primary) hypertension (principal); I25.10 Atherosclerotic heart disease of native coronary artery without angina pectoris; D61.818 Other pancytopenia; E87.1 Hypo-osmolality and hyponatremia

== ENCOUNTER → 2025-01-28 11:03 | Outpatient (BNVA) | payer MEDICARE, SELFPAY | PROVIDERS: PCP Physician Assistant; Visit Provider Physician Assistant | DX: I10 Essential (primary) hypertension (principal); I25.10 Atherosclerotic heart disease of native coronary artery without angina pectoris; D61.818 Other pancytopenia; E87.1 Hypo-osmolality and hyponatremia | CPT/HCPCS: 96127; 99212 ==

== ENCOUNTER 2025-05-06 10:18 | Outpatient (AMB) | payer MEDICARE, SELFPAY ==
--- NOTE | 2025-05-06 10:26 | MHC.OFFVIS ---
Intake Visit Reasons: 1y/PVR/ SET / UA Intake Note: Patient is Present for 1yr Follow Up Urology Medication: Alfuzosin,ALLOPURINOL Antibiotic Allergies:None Blood Thinners: Asprin TODAY'S PVR:14 ML'S J2Ee Software Engineer Required: No Accompanied by: Self / Same As Patient Allergies hydrochlorothiazide (From Dyazide) Allergy (Unknown, Verified 05/06/25 10:28) Unknown triamterene (From Dyazide) Allergy (Unknown, Verified 05/06/25 10:28) Unknown HPI Comments Details: Della is a pleasant male. He is a patient of Dr. Brice. He is seen for the following urologic issue - lower urinary tract symptoms 12 month follow-up Low PVR Adequate hydration Doing very well Lower Urinary Tract Symptoms: Prostate 40 g with calcifications Current visit is for further evaluation of, lower urinary tract symptoms, predominate obstructive symptoms. Current treatment includes alfuzosin Prostate Symptom Score 5/19 , Moderate (9-19), Bother 3. Symptoms include 5/19 , incomplete emptying, weak stream, nocturia (>2), and are progressing. Results from testing include renal/bladder us Yes date 11/06/2018 PVR 20 prostate size 40 calcifications PSA 04/16 0.9, 10/16 1.1, 10/17 1,4 Prostate volume 30-50gm. Testing at next visit will include bladder scan [facility] Medical History (Updated 01/28/25 @ 11:45 by Garrison Brice PA-C) COVID-19 CAD (coronary artery disease) Polio Anemia BPH w urinary obs/LUTS HTN (hypertension) Surgical History History of biopsy Family History Father Lung cancer Mother No problems noted. Son In good health Social History Household Members: Spouse Housing: House Are you a primary customer care coordinator to a significant other at home: No Do you presently have visiting nurse or other home services: No Alcohol intake: current Alcohol intake frequency: holidays/special occasions only Alcohol type: wine Patient Tobacco Use Status: Former Tobacco user Tobacco use type: Cigarette Cigarettes Per Day: 20 e-Cigarette/Vaping Use: Never Used Second Hand Smoke Exposure: No service: Yes Current occupational status: retired Cognitive needs: Yes Hearing needs: No Vision needs: No Review of Systems Const Denies chills and Denies fever(s) Card Reports no additional complaints and Denies syncope Resp Denies cough GI Denies abdominal pain and Denies heartburn Reports as per HPI and Denies change in libido Neuro Denies syncope Psych Denies change in libido Endo Denies change in libido Physical Exam Const General: cooperative, healthy appearing, comfortable and no acute distress Orientation/consciousness: patient oriented x3 HEENT Face and sinus: Yes normal facial exam Mouth: moist mucous membranes Neck Neck: Yes normal visual inspection, Yes full ROM and Yes trachea midline Chest Chest palpation & inspection: normal inspection of the chest Resp Effort & Inspection: normal respiratory effort, able to speak in complete sentences and no respiratory distress GI Inspection: Yes normal to inspection Back/Spine/Pelvis Cervical Spine: normal cervical lordosis Thoracic/Lumbar Spine: thoracic and lumbar spine normal to inspection Skin General skin exam: no rashes or lesions noted Neuro General: patient oriented x3, gait normal, tone normal and moves all extremities Extrem General: Yes normal to inspection and Yes capillary refill normal Office Procedures Post Void Residual Post Residual Void Post Void Residual (PVR): 14 [id number] Void Residual by ultrasound Results AMB Urinalysis, Automated UA Leukoctes 0 Faiza/uL Last Edit by Carola Andino [facility] [place] on 05/06/25 10:44 UA Nitrite Negative Last Edit by Carola Andino [facility] [place] on 05/06/25 10:44 UA Urobilinogen 0.2 mg/dL Last Edit by Carola Andino [facility] [place] on 05/06/25 10:44 UA Protein 0 mg/dL Last Edit by Carola Andino [facility] [place] on 05/06/25 10:44 UA pH 5.5 Last Edit by Carola Andino [facility] [place] on 05/06/25 10:44 UA Blood 0 John/uL Last Edit by Carola Andino [facility] [place] on 05/06/25 10:44 UA Specific [place] 1.015 Last Edit by Carola Andino [facility] [place] on 05/06/25 10:44 UA Ketone Negative Last Edit by Carola Andino [facility] [place] on 05/06/25 10:44 UA Bilirubin 0 mg/dL Last Edit by ABBY Lopez on 05/06/25 10:44 UA Glucose 0 mg/dL Last Edit by ABBY Lopez on 05/06/25 10:44 Results Reviewed Results Reviewed: Laboratory Last Values Urine pH (Auto) 5.5 05/06/25 10:43 Specific [place] (Auto) 1.015 05/06/25 10:43 Urine Protein (Auto) 0 mg/dL 05/06/25 10:43 Glucose (UA)(Auto) 0 mg/dL 05/06/25 10:43 Urine Ketones (Auto) Negative 05/06/25 10:43 Urine Blood (Auto) 0 John/uL 05/06/25 10:43 Urine Nitrite (Auto) Negative 05/06/25 10:43 Urine Bilirubin (Auto) 0 mg/dL 05/06/25 10:43 Urine Urobilinogen (Auto) 0.2 mg/dL 05/06/25 10:43 Leukocyte Esterase (Auto) 0 Faiza/uL 05/06/25 10:43 Assessment & Plan Assessment & Plan (1) Nocturia more than twice per night: Code(s): R35.1 - Nocturia Category: Medical (2) Bladder outlet obstruction: Code(s): N32.0 - Bladder-neck obstruction Category: Medical Plan Yearly follow-up Orders: Orders AMB Urinalysis Automated 05/06/25 N13.8 - Other obstructive and reflux uropathy, N40.1 - Benign prostatic hyperplasia with lower urinary tract symptoms AMB Post Void Residual by ultrasound 05/06/25 N40.1 - Benign prostatic hyperplasia with lower urinary tract symptoms Medications: Refilled alfuzosin ER Take before bedtime 10 mg PO BEDTIME 90 tabs 3RF 90 days N32.0 - Bladder-neck obstruction, R39.12 - Poor urinary stream Patient Instructions: This note is constructed using voice recognition software. While every effort has been made to ensure accuracy fiberglasser errors may have been included. Imaging studies, laboratory and physical exam results were discussed and reviewed in detail. No major barriers to patient understanding were identified. An opportunity to ask questions regarding the treatment plan was provided. All questions were answered. The patient expressed understanding and agreement with the above treatment plan. The patient is aware they should contact our office by phone for worsening of their current condition or the appearance of new urologic symptoms. Compliance is encouraged with any medications and followup testing that is ordered. It is a privilege to participate in the urologic care of your patient. If you have any questions or concerns regarding treatment for the above conditions, or other urologic issues, please do not hesitate to contact me. The office telephone contact is [phone]. Sincerely, Dr Gume Green MD, [facility] - Urology Compassionate Specialist Care for the Genitourinary System Coding Level of Care Code Est Pt Level 4 (13415) Diagnoses Nocturia more than twice per night R35.1 Bladder outlet obstruction N32.0 CPT Codes Post Residual Void - PVR CPT Code: 88972-Xbpm Void Residual by ultrasound ([id number])
== END 2025-05-06 11:32 | disposition home or self-care (01) ==
LOC: HO.HUSH 10:18
PROVIDERS: PCP Physician Assistant; Visit Provider Urology
DX: R35.1 Nocturia (principal); N32.0 Bladder-neck obstruction
CPT/HCPCS: 99214

== ENCOUNTER → 2025-05-06 10:18 | Outpatient (BNVA) | payer MEDICARE, SELFPAY | PROVIDERS: PCP Physician Assistant; Visit Provider Urology | DX: N40.1 Benign prostatic hyperplasia with lower urinary tract symptoms (principal); N13.8 Other obstructive and reflux uropathy; R35.1 Nocturia; N32.0 Bladder-neck obstruction | CPT/HCPCS: 51798; 81003; 99212 ==